=== PATIENT | female | born 1955 ===

== ENCOUNTER 2018-02-02 15:58 | Inpatient (IN) | payer MEDICAID ==
[~2018-02-02] VITALS: Ht 144.8 cm; Wt 83.2 kg
[~2018-02-02 15:58] MED LIST: BENZ1TAB61 PO; BUPR100T11 PO; CALC600T4 PO; CITA20TA6 PO; CLON0.5T20 PO; DIVA500T4 PO; DOCU100C33 PO; FENO145T30 PO; FLUP5ORA PO; IBUP-1222 PO; LEVO125C2 PO; METF-162 PO; RANI150T4 PO; SIMV20TA3 PO
[2018-02-02] MEDS ORDERED: DOCUSATE 100 MG CAPSULE PO PRN (16:00)
[2018-02-02] MEDS: PLEASE ENTER HEIGHT AND WEIGHT MC SCH (16:50)
[2018-02-02] MEDS ORDERED: HYDROcodone/APAP 5/325 TABLET PO PRN (17:00)
[2018-02-02 17:02] VITALS: BP 147/89
[2018-02-02] MEDS: DIVALPROEX 250 MG TABLET.DR PO SCH ×2 (18:06→20:18)
[2018-02-02 19:54] LABS: CULTURE INDICATED? NO; MICROSCOPIC AUTO
[2018-02-02] MEDS: RISPERIDONE 0.5 MG TABLET PO SCH ×2 (20:19→21:03)
[2018-02-02 20:41] VITALS: BP 128/99
[2018-02-02] MEDS: ACETAMINOPHEN 325 MG TABLET PO PRN (20:59)
[2018-02-03] MEDS ORDERED: ALBUTEROL SULFATE 2.5 MG/3 ML NPPB PRN
[2018-02-03] MEDS: PLEASE ENTER HEIGHT AND WEIGHT MC SCH ×2 (00:50→08:50)
[2018-02-03] MEDS ORDERED: LEVOTHYROXINE 112 MCG TABLET PO SCH (06:00)
[2018-02-03 06:27] LABS: BASOPHILS # (AUTO) 0.03 x10^3/uL (0-0.1); BASOPHILS % (AUTO) 1 % (0-1); EOSINOPHILS # (AUTO) 0.11 x10^3/uL (0-0.4); EOSINOPHILS % (AUTO) 2 % (1-7); LYMPHOCYTES # (AUTO) 2.08 x10^3/uL (1-3.4); LYMPHOCYTES % (AUTO) 35 % (22-44); MD NO; MEAN CORPUSCULAR HEMOGLOBIN 32.8 pg (27.0-34.8); MEAN CORPUSCULAR HGB CONC 34.7 g/dL (32.4-35.8); MEAN CORPUSCULAR VOLUME 94.7 fL (80-100); MEAN PLATELET VOLUME 7.9 fL (7.4-10.4); MONOCYTES # (AUTO) 0.37 x10^3/uL (0.2-0.8); MONOCYTES % (AUTO) 6 % (2-9); NEUTROPHILS # (AUTO) 3.34 x10^3/uL (1.8-6.8); NEUTROPHILS % (AUTO) 56 % (42-75); PLATELET COUNT 157 x10^3/uL (130-400); RED BLOOD COUNT 4.55 x10^6/uL (3.82-5.3)
[2018-02-03 06:39] LABS: ALANINE AMINOTRANSFERASE 20 U/L (12-78); ALBUMIN 3.3 g/dL (3.4-5.0); ANION GAP 10 mmol/L (5-15); CALCIUM 8.7 mg/dL (8.5-10.1); CHLORIDE 96 mmol/L (98-107); CREATININE 0.99 mg/dL (0.55-1.02)
[2018-02-03 07:03] LABS: ALKALINE PHOSPHATASE 76 U/L (45-117); BILIRUBIN,TOTAL 0.3 mg/dL (0.2-1.0); CHOL/HDL RATIO 5.5; CHOLESTEROL, TOTAL 230 mg/dL (140-239); FOLATE LEVEL 12.1 ng/mL (3.1-17.5); FREE T4 (FREE THYROXINE) 1.24 ng/dL (0.76-1.46); HDL CHOL % 18 % (28-40); HDL CHOLESTEROL (DIRECT) 42 mg/dL (40-60); LDL CHOLESTEROL,CALCULATED 108 mg/dL (54-169); LDL/HDL RATIO 2.6 (0.5-3.0); TOTAL PROTEIN 7.8 g/dL (6.4-8.2); TRIGLYCERIDES 399 mg/dL (50-200); VLDL CHOLESTEROL 80 mg/dL (0-25)
[2018-02-03 07:34] VITALS: BP 172/98
[2018-02-03] MEDS: DIVALPROEX 250 MG TABLET.DR PO SCH ×3 (08:31→20:27)
[2018-02-03] MEDS: RISPERIDONE 0.5 MG TABLET PO SCH ×2 (08:31→08:32)
[2018-02-03] MEDS: ACETAMINOPHEN 325 MG TABLET PO PRN ×2 (09:08→20:16)
[2018-02-03 17:51] VITALS: BP 184/97
[2018-02-03] MEDS: METOPROLOL TARTRATE 50 MG TABLET PO SCH (18:15)
[2018-02-03] MEDS ORDERED: HYDROcodone/APAP 5/325 TABLET PO PRN (18:30)
[2018-02-03] MEDS ORDERED: LABETALOL 5MG/ML, 20ML IVPush PRN (18:30)
[2018-02-03] MEDS ORDERED: ONDANSETRON ODT 4 MG PO PRN (18:30)
[2018-02-03] MEDS ORDERED: ENALAPRILAT 1.25 MG/ML, 2ML IV PRN (18:30)
[2018-02-03] MEDS ORDERED: ALBUTEROL/IPRATROPIUM 2.5MG/0.5MG, 3 ML NPPB SCH (19:00)
[2018-02-03 19:38] VITALS: BP 107/70
[2018-02-03 19:41] VITALS: BP 189/97
[2018-02-03] MEDS: RISPERIDONE 2 MG TABLET PO SCH (20:27)
[2018-02-03] MEDS: INSULIN REGULAR 100 UNITS/ML, 3ML VIAL SQ-INSULIN SCH (21:00)
[2018-02-03] MEDS: DIPHENHYDRAMINE 50 MG CAPSULE PO PRN (21:58)
[2018-02-03] MEDS ORDERED: DIPHENHYDRAMINE 50 MG CAPSULE ONE (21:58)
[2018-02-04] MEDS: METOPROLOL TARTRATE 50 MG TABLET PO SCH ×2 (05:26→18:44)
[2018-02-04] MEDS: LEVOTHYROXINE 112 MCG TABLET PO SCH (05:26)
[2018-02-04] MEDS: INSULIN REGULAR 100 UNITS/ML, 3ML VIAL SQ-INSULIN SCH ×4 (05:35→20:43)
[2018-02-04 07:40] VITALS: BP 183/91
[2018-02-04] MEDS: DIVALPROEX 250 MG TABLET.DR PO SCH ×3 (08:29→20:38)
[2018-02-04] MEDS: RISPERIDONE 2 MG TABLET PO SCH ×2 (08:29→20:38)
[2018-02-04] MEDS: SODIUM CHLORIDE 1 GM TABLET PO SCH (08:30)
[2018-02-04] MEDS: ACETAMINOPHEN 325 MG TABLET PO PRN (14:54)
[2018-02-04 18:41] VITALS: BP 170/91
[2018-02-04] MEDS: TRAZODONE 50MG TABLET PO PRN (21:27)
[2018-02-04] MEDS: DIPHENHYDRAMINE 50 MG CAPSULE PO PRN (21:45)
[2018-02-04] MEDS: LORazepam 1MG TABLET PO PRN (23:20)
[2018-02-05] MEDS: LEVOTHYROXINE 112 MCG TABLET PO SCH (05:30)
[2018-02-05] MEDS: METOPROLOL TARTRATE 50 MG TABLET PO SCH ×2 (05:30→17:34)
[2018-02-05] MEDS: INSULIN REGULAR 100 UNITS/ML, 3ML VIAL SQ-INSULIN SCH ×4 (05:31→21:00)
[2018-02-05 05:32] VITALS: BP 133/87
[2018-02-05 07:29] VITALS: BP 129/74
[2018-02-05] MEDS: DIVALPROEX 250 MG TABLET.DR PO SCH ×3 (08:33→21:13)
[2018-02-05] MEDS: SODIUM CHLORIDE 1 GM TABLET PO SCH (08:33)
[2018-02-05] MEDS: RISPERIDONE 2 MG TABLET PO SCH ×2 (08:33→21:14)
[2018-02-05] MEDS: METHYL SALICYLATE/MENTHOL CRM 85GM TP SCH ×2 (16:00→22:06)
[2018-02-05] MEDS: TRAZODONE 50MG TABLET PO SCH (21:13)
[2018-02-06] MEDS: LEVOTHYROXINE 112 MCG TABLET PO SCH (05:19)
[2018-02-06] MEDS: METOPROLOL TARTRATE 50 MG TABLET PO SCH ×2 (05:19→17:02)
[2018-02-06 05:30] VITALS: BP 172/78
[2018-02-06] MEDS: INSULIN REGULAR 100 UNITS/ML, 3ML VIAL SQ-INSULIN SCH ×4 (05:32→21:00)
[2018-02-06 07:38] VITALS: BP 139/81
[2018-02-06] MEDS: DIVALPROEX 250 MG TABLET.DR PO SCH ×3 (08:01→20:35)
[2018-02-06] MEDS: RISPERIDONE 2 MG TABLET PO SCH ×2 (08:01→20:35)
[2018-02-06] MEDS: SODIUM CHLORIDE 1 GM TABLET PO SCH (08:01)
[2018-02-06] MEDS: METHYL SALICYLATE/MENTHOL CRM 85GM TP SCH ×3 (08:01→21:50)
[2018-02-06 20:01] VITALS: BP 177/103
[2018-02-06] MEDS: TRAZODONE 50MG TABLET PO SCH (20:35)
[2018-02-06] MEDS: LORazepam 1MG TABLET PO PRN (20:35)
[2018-02-07] MEDS: LEVOTHYROXINE 112 MCG TABLET PO SCH (06:35)
[2018-02-07] MEDS: METOPROLOL TARTRATE 50 MG TABLET PO SCH ×2 (06:36→16:44)
[2018-02-07 06:47] VITALS: BP 187/81
[2018-02-07 07:19] VITALS: BP 156/94
[2018-02-07] MEDS: INSULIN REGULAR 100 UNITS/ML, 3ML VIAL SQ-INSULIN SCH ×4 (07:34→20:33)
[2018-02-07] MEDS: METHYL SALICYLATE/MENTHOL CRM 85GM TP SCH ×3 (07:35→20:40)
[2018-02-07] MEDS: SODIUM CHLORIDE 1 GM TABLET PO SCH (08:30)
[2018-02-07] MEDS: RISPERIDONE 2 MG TABLET PO SCH ×2 (08:31→20:41)
[2018-02-07] MEDS: LISINOPRIL 10 MG TABLET PO SCH (08:31)
[2018-02-07] MEDS: DIVALPROEX 250 MG TABLET.DR PO SCH ×3 (08:31→20:39)
[2018-02-07 08:40] LABS: ANION GAP 7 mmol/L (5-15); CALCIUM 8.8 mg/dL (8.5-10.1); CHLORIDE 98 mmol/L (98-107); CREATININE 0.99 mg/dL (0.55-1.02)
[2018-02-07 19:40] VITALS: BP 137/78
[2018-02-07] MEDS: TRAZODONE 50MG TABLET PO PRN (20:39)
[2018-02-07] MEDS: TRAZODONE 50MG TABLET PO SCH (20:40)
[2018-02-07] MEDS: DIPHENHYDRAMINE 50 MG CAPSULE PO PRN (21:00)
[2018-02-08] MEDS: DIPHENHYDRAMINE 50 MG CAPSULE PO PRN ×2 (04:17→20:38)
[2018-02-08] MEDS: ACETAMINOPHEN 325 MG TABLET PO PRN (04:18)
[2018-02-08] MEDS: LEVOTHYROXINE 112 MCG TABLET PO SCH (05:21)
[2018-02-08] MEDS: METOPROLOL TARTRATE 50 MG TABLET PO SCH ×2 (06:00→18:16)
[2018-02-08] MEDS: INSULIN REGULAR 100 UNITS/ML, 3ML VIAL SQ-INSULIN SCH ×4 (06:00→20:32)
[2018-02-08 07:00] VITALS: BP 176/84
[2018-02-08] MEDS: LISINOPRIL 10 MG TABLET PO SCH (07:50)
[2018-02-08] MEDS: DIVALPROEX 250 MG TABLET.DR PO SCH ×3 (07:50→20:38)
[2018-02-08] MEDS: SODIUM CHLORIDE 1 GM TABLET PO SCH (07:51)
[2018-02-08] MEDS: RISPERIDONE 2 MG TABLET PO SCH ×2 (07:51→20:38)
[2018-02-08] MEDS: METHYL SALICYLATE/MENTHOL CRM 85GM TP SCH ×3 (10:00→20:38)
[2018-02-08 19:51] VITALS: BP 140/83
[2018-02-08] MEDS: TRAZODONE 50MG TABLET PO SCH (20:39)
[2018-02-09] MEDS: LORazepam 1MG TABLET PO PRN (01:11)
[2018-02-09] MEDS: LEVOTHYROXINE 112 MCG TABLET PO SCH (04:42)
[2018-02-09] MEDS: METOPROLOL TARTRATE 50 MG TABLET PO SCH ×2 (04:43→18:08)
[2018-02-09] MEDS: INSULIN REGULAR 100 UNITS/ML, 3ML VIAL SQ-INSULIN SCH ×4 (07:00→21:00)
[2018-02-09 07:24] VITALS: BP 140/77
[2018-02-09] MEDS: DIVALPROEX 250 MG TABLET.DR PO SCH ×3 (09:05→20:19)
[2018-02-09] MEDS: SODIUM CHLORIDE 1 GM TABLET PO SCH (09:06)
[2018-02-09] MEDS: RISPERIDONE 2 MG TABLET PO SCH ×2 (09:06→20:19)
[2018-02-09] MEDS: LISINOPRIL 10 MG TABLET PO SCH (09:06)
[2018-02-09] MEDS: METHYL SALICYLATE/MENTHOL CRM 85GM TP SCH ×3 (09:06→20:22)
[2018-02-09 20:00] VITALS: BP 147/86
[2018-02-09] MEDS: TRAZODONE 50MG TABLET PO SCH (20:20)
[2018-02-10 06:05] VITALS: BP 165/82
[2018-02-10] MEDS: METOPROLOL TARTRATE 50 MG TABLET PO SCH ×2 (06:06→17:59)
[2018-02-10] MEDS: LEVOTHYROXINE 112 MCG TABLET PO SCH (06:07)
[2018-02-10] MEDS: INSULIN REGULAR 100 UNITS/ML, 3ML VIAL SQ-INSULIN SCH ×3 (07:00→16:00)
[2018-02-10 07:42] VITALS: BP 149/76
[2018-02-10] MEDS: LISINOPRIL 10 MG TABLET PO SCH (08:45)
[2018-02-10] MEDS: DIVALPROEX 250 MG TABLET.DR PO SCH ×3 (08:45→20:24)
[2018-02-10] MEDS: SODIUM CHLORIDE 1 GM TABLET PO SCH (08:45)
[2018-02-10] MEDS: RISPERIDONE 2 MG TABLET PO SCH ×2 (08:45→20:24)
[2018-02-10] MEDS: METHYL SALICYLATE/MENTHOL CRM 85GM TP SCH ×3 (09:26→20:26)
[2018-02-10 19:53] VITALS: BP 142/83
[2018-02-10] MEDS: TRAZODONE 50MG TABLET PO SCH (20:24)
[2018-02-11 04:49] VITALS: BP 139/85
[2018-02-11] MEDS: METOPROLOL TARTRATE 50 MG TABLET PO SCH ×2 (05:11→18:01)
[2018-02-11] MEDS: LEVOTHYROXINE 112 MCG TABLET PO SCH (05:12)
[2018-02-11] MEDS: INSULIN REGULAR 100 UNITS/ML, 3ML VIAL SQ-INSULIN SCH (08:00)
[2018-02-11] MEDS: LISINOPRIL 10 MG TABLET PO SCH (08:01)
[2018-02-11] MEDS: DIVALPROEX 250 MG TABLET.DR PO SCH ×3 (08:01→22:33)
[2018-02-11] MEDS: RISPERIDONE 2 MG TABLET PO SCH ×2 (08:02→22:33)
[2018-02-11] MEDS: SODIUM CHLORIDE 1 GM TABLET PO SCH (08:02)
[2018-02-11 08:04] VITALS: BP 139/86
[2018-02-11] MEDS: METHYL SALICYLATE/MENTHOL CRM 85GM TP SCH ×3 (08:09→22:43)
[2018-02-11] MEDS: ACETAMINOPHEN 325 MG TABLET PO PRN (10:38)
[2018-02-11 22:30] VITALS: BP 154/74
[2018-02-11] MEDS: LORazepam 1MG TABLET PO PRN (22:33)
[2018-02-11] MEDS: TRAZODONE 50MG TABLET PO SCH (22:33)
[2018-02-12 05:33] VITALS: BP 165/87
[2018-02-12] MEDS: LEVOTHYROXINE 112 MCG TABLET PO SCH (05:34)
[2018-02-12] MEDS: METOPROLOL TARTRATE 50 MG TABLET PO SCH (05:34)
[2018-02-12 07:27] VITALS: BP 157/79
[2018-02-12] MEDS: INSULIN REGULAR 100 UNITS/ML, 3ML VIAL SQ-INSULIN SCH (07:57)
[2018-02-12] MEDS: DIVALPROEX 250 MG TABLET.DR PO SCH ×2 (08:56→15:54)
[2018-02-12] MEDS: RISPERIDONE 2 MG TABLET PO SCH (08:57)
[2018-02-12] MEDS: SODIUM CHLORIDE 1 GM TABLET PO SCH (08:57)
[2018-02-12] MEDS: METHYL SALICYLATE/MENTHOL CRM 85GM TP SCH ×2 (08:57→15:54)
[2018-02-12] MEDS: LISINOPRIL 10 MG TABLET PO SCH (08:57)
[2018-02-12] MEDS ORDERED: LEVO112T2 PO (12:48)
[2018-02-12] MEDS ORDERED: DIVA-59 PO (12:48)
[2018-02-12] MEDS ORDERED: RISP2TAB35 PO (12:48)
[2018-02-12] MEDS ORDERED: LISI-167 PO (12:48)
[2018-02-12] MEDS ORDERED: TRAZ-136 PO (12:48)
[2018-02-12] MEDS ORDERED: INSU100V5 SQ-INSULIN (12:48)
[2018-02-12] MEDS ORDERED: METO50TA82 PO (12:48)
[2018-02-12] MEDS: LORazepam 1MG TABLET PO PRN (15:54)
== END 2018-02-12 16:03 | DRG 884 ==
LOC: 3E 15:59
PROVIDERS: ADMIT Counselor Mental Health; ATTEND Counselor Mental Health
DX: F01.51 Vascular dementia, unspecified severity, with behavioral disturbance (principal); F20.0 Paranoid schizophrenia; E87.1 Hypo-osmolality and hyponatremia; E03.9 Hypothyroidism, unspecified; E11.9 Type 2 diabetes mellitus without complications; E78.1 Pure hyperglyceridemia; E78.5 Hyperlipidemia, unspecified; F17.200 Nicotine dependence, unspecified, uncomplicated; G47.00 Insomnia, unspecified; I10 Essential (primary) hypertension; J44.9 Chronic obstructive pulmonary disease, unspecified; R45.850 Homicidal ideations; Z79.899 Other long term (current) drug therapy; F39 Unspecified mood [affective] disorder; F41.9 Anxiety disorder, unspecified; Z72.89 Other problems related to lifestyle
CPT/HCPCS: 36415; 80048; 80053; 80061; 80164; 81001; 82140; 82607; 82746; 82962; 84439; 84443; 85025; 86592; J1815; 92523-GN

== ENCOUNTER 2018-05-17 15:19 | Inpatient (IN) | payer MEDICAID, MEDICARE ==
[~2018-05-17] VITALS: Ht 144.8 cm; Wt 83.4 kg
[~2018-05-17 15:19] MED LIST changes: +DIVA-59 PO; +INSU100V5 SQ-INSULIN; +LEVO112T2 PO; +LISI-167 PO; +METO50TA82 PO; +RISP2TAB35 PO; +TRAZ-136 PO
[2018-05-17 16:33] LABS: ALBUMIN 3.2 g/dL (3.4-5.0); ANION GAP 6 mmol/L (5-15); CALCIUM 8.2 mg/dL (8.5-10.1); CHLORIDE 89 mmol/L (98-107); CREATININE 0.99 mg/dL (0.55-1.02)
[2018-05-17 16:34] LABS: BASOPHILS % (AUTO) 0 % (0-1); EOSINOPHILS # (AUTO) 0.13 x10^3/uL (0-0.4); EOSINOPHILS % (AUTO) 2 % (1-7); LYMPHOCYTES # (AUTO) 2.46 x10^3/uL (1-3.4); LYMPHOCYTES % (AUTO) 40 % (22-44); MD NO; MEAN CORPUSCULAR HEMOGLOBIN 31.6 pg (27.0-34.8); MEAN CORPUSCULAR HGB CONC 33.9 g/dL (32.4-35.8); MEAN CORPUSCULAR VOLUME 93.2 fL (80-100); MEAN PLATELET VOLUME 8.1 fL (7.4-10.4); MONOCYTES # (AUTO) 0.63 x10^3/uL (0.2-0.8); MONOCYTES % (AUTO) 10 % (2-9); NEUTROPHILS # (AUTO) 2.91 x10^3/uL (1.8-6.8); NEUTROPHILS % (AUTO) 48 % (42-75); PLATELET COUNT 140 x10^3/uL (130-400); RED BLOOD COUNT 4.39 x10^6/uL (3.82-5.3)
[2018-05-17] MEDS ORDERED: DIVA125C2 PO (18:01)
[2018-05-17 18:03] LABS: MICROSCOPIC NOT IND
[2018-05-17] MEDS ORDERED: RISP2TAB35 PO (18:03)
[2018-05-17] MEDS ORDERED: SODI1TAB PO (18:04)
[2018-05-17] MEDS ORDERED: TRAZ-136 PO (18:05)
[2018-05-17] MEDS ORDERED: MENT113G5 TD (18:06)
[2018-05-17 18:09] LABS: CULTURE INDICATED? NO
[2018-05-17] MEDS ORDERED: NYST15CR33 TD (18:16)
[2018-05-17 19:00] VITALS: BP 152/84
[2018-05-17] MEDS ORDERED: DOCUSATE 100 MG CAPSULE PO PRN (19:00)
[2018-05-17 19:51] LABS: OSMOLALITY,URINE 240 mOsm/kg (500-850)
[2018-05-17 20:15] LABS: ANION GAP 7 mmol/L (5-15); CALCIUM 8.3 mg/dL (8.5-10.1); CHLORIDE 90 mmol/L (98-107); CREATININE 0.95 mg/dL (0.55-1.02)
[2018-05-17 21:03] LABS: FREE T4 (FREE THYROXINE) 1.34 ng/dL (0.76-1.46)
[2018-05-18 00:18] VITALS: BP 143/83
[2018-05-18 00:52] LABS: ANION GAP 7 mmol/L (5-15); CALCIUM 8.6 mg/dL (8.5-10.1); CHLORIDE 91 mmol/L (98-107); CREATININE 1.19 mg/dL (0.55-1.02)
[2018-05-18 04:03] VITALS: BP 146/76
[2018-05-18 04:30] LABS: ANION GAP 4 mmol/L (5-15); CALCIUM 8.7 mg/dL (8.5-10.1); CHLORIDE 92 mmol/L (98-107)
[2018-05-18] MEDS: ACETAMINOPHEN 325 MG TABLET PO PRN (06:11)
[2018-05-18 06:38] VITALS: BP 136/67
[2018-05-18] MEDS: SODIUM CHLORIDE 0.9% 1,000 ML IV SCH ×2 (08:30→18:30)
[2018-05-18 08:32] LABS: ANION GAP 6 mmol/L (5-15); CALCIUM 8.7 mg/dL (8.5-10.1); CHLORIDE 93 mmol/L (98-107); CREATININE 1.05 mg/dL (0.55-1.02)
[2018-05-18 12:06] LABS: ANION GAP 4 mmol/L (5-15); CALCIUM 8.5 mg/dL (8.5-10.1); CHLORIDE 93 mmol/L (98-107); CREATININE 1.03 mg/dL (0.55-1.02)
[2018-05-18 13:14] VITALS: BP 156/73
[2018-05-18 16:16] LABS: ANION GAP 5 mmol/L (5-15); CALCIUM 8.8 mg/dL (8.5-10.1); CHLORIDE 91 mmol/L (98-107); CREATININE 1.38 mg/dL (0.55-1.02)
[2018-05-18 20:50] LABS: ANION GAP 8 mmol/L (5-15); CALCIUM 8.5 mg/dL (8.5-10.1); CHLORIDE 90 mmol/L (98-107); CREATININE 1.27 mg/dL (0.55-1.02)
[2018-05-18 21:45] VITALS: BP 121/66
[2018-05-19 00:45] LABS: ANION GAP 6 mmol/L (5-15); CALCIUM 8.1 mg/dL (8.5-10.1); CHLORIDE 95 mmol/L (98-107); CREATININE 1.24 mg/dL (0.55-1.02)
[2018-05-19 01:56] VITALS: BP 141/74
[2018-05-19] MEDS: ACETAMINOPHEN 325 MG TABLET PO PRN (03:31)
[2018-05-19 05:55] LABS: ANION GAP 5 mmol/L (5-15); CALCIUM 9.2 mg/dL (8.5-10.1); CHLORIDE 98 mmol/L (98-107); CREATININE 0.93 mg/dL (0.55-1.02)
[2018-05-19] MEDS: SODIUM CHLORIDE 0.9% 1,000 ML IV SCH ×2 (06:00→15:34)
[2018-05-19 06:50] VITALS: BP 162/86
[2018-05-19 08:43] LABS: ANION GAP 6 mmol/L (5-15); CALCIUM 8.5 mg/dL (8.5-10.1); CHLORIDE 99 mmol/L (98-107); CREATININE 0.89 mg/dL (0.55-1.02)
[2018-05-19 13:48] VITALS: BP 154/89
[2018-05-19 20:00] VITALS: BP 150/85
[2018-05-19] MEDS ORDERED: DILTIAZEM 5 MG/ML, 5ML IVPush ONE (21:00)
[2018-05-19] MEDS ORDERED: DILTIAZEM 5 MG/ML, 10ML IVPush ONE (21:30)
[2018-05-19 21:49] LABS: FREE T4 (FREE THYROXINE) 1.02 ng/dL (0.76-1.46); THYROID STIMULATING HORMONE 0.151 mIU/L (0.358-3.740)
[2018-05-20] MEDS: ACETAMINOPHEN 325 MG TABLET PO PRN (00:30)
[2018-05-20] MEDS: SODIUM CHLORIDE 0.9% 1,000 ML IV SCH ×3 (00:33→19:50)
[2018-05-20 01:25] VITALS: BP 173/111
[2018-05-20 02:04] VITALS: BP 160/86
[2018-05-20 06:38] VITALS: BP 146/105
[2018-05-20] MEDS ORDERED: METOPROLOL SUCCINATE 50 MG TAB.ER.24H ONE (10:43)
[2018-05-20] MEDS: DIVALPROEX 500 MG TABLET.DR PO SCH ×2 (10:48→21:48)
[2018-05-20] MEDS: LISINOPRIL 10 MG TABLET PO SCH (10:48)
[2018-05-20] MEDS: RISPERIDONE 2 MG TABLET PO SCH ×3 (10:48→21:49)
[2018-05-20] MEDS ORDERED: METOPROLOL TARTRATE 50 MG TABLET PO ONE (11:00)
[2018-05-20 12:05] VITALS: BP 177/114
[2018-05-20 17:05] VITALS: BP 162/92
[2018-05-20] MEDS: METOPROLOL TARTRATE 25 MG TABLET PO SCH (18:00)
[2018-05-20] MEDS ORDERED: METOPROLOL TARTRATE 50 MG TABLET PO SCH ×2 (18:00)
[2018-05-20 19:55] VITALS: BP 168/94
[2018-05-20] MEDS: TRAZODONE 50MG TABLET PO SCH (21:49)
[2018-05-21 02:26] VITALS: BP 105/67
[2018-05-21] MEDS: LEVOTHYROXINE 112 MCG TABLET PO SCH (05:25)
[2018-05-21] MEDS: SODIUM CHLORIDE 0.9% 1,000 ML IV SCH ×2 (05:25→16:49)
[2018-05-21] MEDS: METOPROLOL TARTRATE 25 MG TABLET PO SCH ×2 (05:25→18:10)
[2018-05-21 07:39] VITALS: BP 120/76
[2018-05-21] MEDS: LISINOPRIL 10 MG TABLET PO SCH (08:10)
[2018-05-21] MEDS: RISPERIDONE 2 MG TABLET PO SCH ×3 (08:10→21:00)
[2018-05-21] MEDS: DIVALPROEX 500 MG TABLET.DR PO SCH ×2 (08:10→21:00)
[2018-05-21 12:51] VITALS: BP 136/80
[2018-05-21 19:44] VITALS: BP 171/85
[2018-05-21] MEDS: TRAZODONE 50MG TABLET PO SCH (21:00)
[2018-05-21 21:03] VITALS: BP 127/73
[2018-05-22 02:17] VITALS: BP 149/81
[2018-05-22] MEDS: SODIUM CHLORIDE 0.9% 1,000 ML IV SCH (03:39)
[2018-05-22] MEDS: LEVOTHYROXINE 112 MCG TABLET PO SCH (05:39)
[2018-05-22] MEDS: ACETAMINOPHEN 325 MG TABLET PO PRN (05:41)
[2018-05-22] MEDS: METOPROLOL TARTRATE 25 MG TABLET PO SCH (05:44)
[2018-05-22 07:24] VITALS: BP 119/76
[2018-05-22 09:42] VITALS: BP 150/84
[2018-05-22] MEDS: RISPERIDONE 2 MG TABLET PO SCH (09:43)
[2018-05-22] MEDS: DIVALPROEX 500 MG TABLET.DR PO SCH (09:43)
[2018-05-22] MEDS: LISINOPRIL 10 MG TABLET PO SCH (09:43)
[2018-05-22] MEDS ORDERED: SODI1TAB PO ×2 (12:07→12:18)
[2018-05-22] MEDS ORDERED: METO25TA35 PO (12:07)
[2018-05-22] MEDS ORDERED: SIMV10TA PO (12:09)
[2018-05-22] MEDS ORDERED: LORazepam 1MG TABLET PO ONE (14:00)
[2018-05-22 14:10] VITALS: BP 147/84
== END 2018-05-22 16:00 | DRG 640 ==
LOC: ED 17:23 → EDIP 17:52 → 4WST 18:32
PROVIDERS: ADMIT Internal Medicine; ATTEND Internal Medicine
DX: E87.1 Hypo-osmolality and hyponatremia (principal); G93.41 Metabolic encephalopathy; F20.0 Paranoid schizophrenia; E03.9 Hypothyroidism, unspecified; E11.9 Type 2 diabetes mellitus without complications; E66.01 Morbid (severe) obesity due to excess calories; E78.5 Hyperlipidemia, unspecified; F01.50 Vascular dementia, unspecified severity, without behavioral disturbance, psychotic disturbance, mood disturbance, and anxiety; F41.1 Generalized anxiety disorder; I11.9 Hypertensive heart disease without heart failure; J44.9 Chronic obstructive pulmonary disease, unspecified; S00.03XA Contusion of scalp, initial encounter; S05.12XA Contusion of eyeball and orbital tissues, left eye, initial encounter; W18.39XA Other fall on same level, initial encounter; M19.90 Unspecified osteoarthritis, unspecified site; F41.9 Anxiety disorder, unspecified; K59.00 Constipation, unspecified; F32.9 Major depressive disorder, single episode, unspecified; Y93.89 Activity, other specified; Y92.89 Other specified places as the place of occurrence of the external cause; Z68.39 Body mass index [BMI] 39.0-39.9, adult; Z87.891 Personal history of nicotine dependence; Y99.8 Other external cause status
CPT/HCPCS: 36415; 70450; 70486; 71045; 71046; 72125; 80048; 80164; 81003; 82040; 82533; 82962; 83735; 83880; 83930; 83935; 84300; 84439; 84443; 84481; 85025; 93005; 93306; 99285; G0378; J7030

== ENCOUNTER 2018-05-29 00:07 | Emergency (ER) | payer MEDICAID ==
[~2018-05-29] VITALS: Ht 144.8 cm; Wt 75.6 kg
[~2018-05-29 00:07] MED LIST changes: +DIVA125C2 PO; +MENT113G5 TD; +METO25TA35 PO; +NYST15CR33 TD; +SIMV10TA PO; +SODI1TAB PO
[2018-05-29 00:45] LABS: BASOPHILS # (AUTO) 0.09 x10^3/uL (0-0.1); BASOPHILS % (AUTO) 1 % (0-1); EOSINOPHILS # (AUTO) 0.08 x10^3/uL (0-0.4); EOSINOPHILS % (AUTO) 1 % (1-7); LYMPHOCYTES # (AUTO) 2.48 x10^3/uL (1-3.4); LYMPHOCYTES % (AUTO) 24 % (22-44); MD NO; MEAN CORPUSCULAR HEMOGLOBIN 32.3 pg (27.0-34.8); MEAN CORPUSCULAR HGB CONC 34.4 g/dL (32.4-35.8); MEAN CORPUSCULAR VOLUME 93.9 fL (80-100); MEAN PLATELET VOLUME 7.6 fL (7.4-10.4); MONOCYTES # (AUTO) 0.63 x10^3/uL (0.2-0.8); MONOCYTES % (AUTO) 6 % (2-9); NEUTROPHILS # (AUTO) 7.16 x10^3/uL (1.8-6.8); NEUTROPHILS % (AUTO) 69 % (42-75); PLATELET COUNT 199 x10^3/uL (130-400); RED BLOOD COUNT 4.12 x10^6/uL (3.82-5.3); RED CELL DISTRIBUTION WIDTH 13.3 % (9.6-15.2)
[2018-05-29 00:54] LABS: ALBUMIN 3.2 g/dL (3.4-5.0); ANION GAP 8 mmol/L (5-15); CALCIUM 8.8 mg/dL (8.5-10.1); CHLORIDE 96 mmol/L (98-107); CREATININE 1.08 mg/dL (0.55-1.02)
[2018-05-29 02:45] VITALS: BP 108/72
== END 2018-05-29 03:24 | disposition short-term general hospital (02) ==
LOC: ED 00:27
DX: F91.1 Conduct disorder, childhood-onset type (principal); I10 Essential (primary) hypertension; E11.9 Type 2 diabetes mellitus without complications; E78.5 Hyperlipidemia, unspecified; J44.9 Chronic obstructive pulmonary disease, unspecified; F41.1 Generalized anxiety disorder; F32.9 Major depressive disorder, single episode, unspecified; F20.0 Paranoid schizophrenia; Z87.891 Personal history of nicotine dependence
CPT/HCPCS: 36415; 80048; 82040; 85025; 99285

== ENCOUNTER 2018-06-01 08:53 | Inpatient (IN) | payer MEDICAID ==
[~2018-06-01] VITALS: Ht 144.8 cm; Wt 78.3 kg
[~2018-06-01 08:53] MED LIST changes: -TRAZ-136 PO; +TRAZ50TA66 PO
[2018-06-01] MEDS ORDERED: ALPR0.25 PO (10:36)
[2018-06-01] MEDS ORDERED: ZIPR20CA2 PO (10:36)
[2018-06-01] MEDS ORDERED: POLYETHYLENE GLYCOL 17 GM PACKET PO PRN (12:30)
[2018-06-01] MEDS ORDERED: DOCUSATE 100 MG CAPSULE PO PRN (12:30)
[2018-06-01] MEDS ORDERED: BISACODYL 10 MG SUPP PR PRN (12:30)
[2018-06-01] MEDS ORDERED: ONDANSETRON ODT 4 MG PO PRN (12:30)
[2018-06-01 12:57] VITALS: BP 147/84
[2018-06-01] MEDS: ACETAMINOPHEN 325 MG TABLET PO PRN ×2 (16:03→22:02)
[2018-06-01] MEDS: METOPROLOL TARTRATE 25 MG TABLET PO SCH (17:18)
[2018-06-01] MEDS: SIMVASTATIN 10 MG PO SCH ×2 (20:15→21:54)
[2018-06-01] MEDS: DIVALPROEX 125 MG CAP.SPRINK PO SCH ×2 (20:15→21:54)
[2018-06-01] MEDS: ZIPRASIDONE 20MG CAPSULE PO SCH ×2 (20:15→21:54)
[2018-06-01] MEDS: TRAZODONE 50MG TABLET PO SCH ×2 (20:15→21:54)
[2018-06-01 20:27] VITALS: BP 97/62
[2018-06-01] MEDS: METHYL SALICYLATE/MENTHOL CRM 85GM TP SCH (20:52)
[2018-06-01] MEDS: SODIUM CHLORIDE 1 GM TABLET PO SCH (20:52)
[2018-06-01] MEDS: NYSTATIN CRM 15GM TP SCH (20:53)
[2018-06-02 05:21] LABS: MEAN CORPUSCULAR HEMOGLOBIN 32.7 pg (27.0-34.8); MEAN CORPUSCULAR HGB CONC 34.5 g/dL (32.4-35.8); MEAN CORPUSCULAR VOLUME 94.7 fL (80-100); MEAN PLATELET VOLUME 7.8 fL (7.4-10.4); PLATELET COUNT 217 x10^3/uL (130-400); RED BLOOD COUNT 4.33 x10^6/uL (3.82-5.3); RED CELL DISTRIBUTION WIDTH 13.1 % (9.6-15.2)
[2018-06-02 05:26] LABS: ALBUMIN 3.2 g/dL (3.4-5.0); CALCIUM 8.3 mg/dL (8.5-10.1); CHLORIDE 86 mmol/L (98-107)
[2018-06-02 05:53] LABS: ALANINE AMINOTRANSFERASE 13 U/L (12-78); ALKALINE PHOSPHATASE 60 U/L (45-117); ANION GAP 7 mmol/L (5-15); BILIRUBIN,TOTAL 0.3 mg/dL (0.2-1.0); CHOL/HDL RATIO 2.5; CHOLESTEROL, TOTAL 149 mg/dL (140-239); CREATININE 1.13 mg/dL (0.55-1.02); HDL CHOL % 40 % (28-40); HDL CHOLESTEROL (DIRECT) 59 mg/dL (40-60); LDL CHOLESTEROL,CALCULATED 36 mg/dL (54-169); LDL/HDL RATIO 0.6 (0.5-3.0); T4 (THYROXINE) 9.5 mcg/dL (4.8-13.9); TOTAL PROTEIN 6.8 g/dL (6.4-8.2); TRIGLYCERIDES 272 mg/dL (50-200); VLDL CHOLESTEROL 54 mg/dL (0-25)
[2018-06-02 06:02] LABS: MD YES
[2018-06-02 06:06] LABS: BAND#(MANUAL) 0.22 x10^3/uL; BANDS%(MANUAL) 3 % (0-7); METAMYELOCYTES# (MANUAL) 0.14 x10^3/uL (0-0); METAMYELOCYTES% (MANUAL) 2 % (0-1); MONOS% (MANUAL) 7 % (2-9); SEGS% (MANUAL) 25 % (42-75)
[2018-06-02 06:16] LABS: <PLATELET ESTIMATE> ADEQUATE; <PLT MORPHOLOGY> NORMAL PLT MORPH; <RBC MORPHOLOGY> NORMAL; LYMPH#(MANUAL) 4.03 x10^3/uL (1-3.4); LYMPHS% (MANUAL) 56 % (22-44); REACTIVE LYMPHS % (MANUAL) 7 % (0-0)
[2018-06-02] MEDS: METOPROLOL TARTRATE 25 MG TABLET PO SCH ×2 (07:23→17:13)
[2018-06-02] MEDS: LEVOTHYROXINE 112 MCG TABLET PO SCH (07:23)
[2018-06-02] MEDS: ACETAMINOPHEN 325 MG TABLET PO PRN ×2 (07:23→22:07)
[2018-06-02 07:30] VITALS: BP 166/94
[2018-06-02 08:21] LABS: CULTURE INDICATED? NO; MICROSCOPIC NOT IND
[2018-06-02] MEDS: SODIUM CHLORIDE 1 GM TABLET PO SCH ×2 (09:05→20:17)
[2018-06-02] MEDS: SENNA/DOCUSATE TABLET PO SCH (09:05)
[2018-06-02] MEDS: DIVALPROEX 125 MG CAP.SPRINK PO SCH ×2 (09:05→20:16)
[2018-06-02] MEDS: ZIPRASIDONE 20MG CAPSULE PO SCH (09:05)
[2018-06-02] MEDS: LISINOPRIL 10 MG TABLET PO SCH (09:06)
[2018-06-02] MEDS: NYSTATIN CRM 15GM TP SCH ×2 (09:06→20:20)
[2018-06-02] MEDS: METHYL SALICYLATE/MENTHOL CRM 85GM TP SCH ×2 (09:07→20:20)
[2018-06-02] MEDS ORDERED: LORazepam 0.5MG TABLET PO SCH (16:00)
[2018-06-02 20:00] VITALS: BP 158/77
[2018-06-02] MEDS: TRAZODONE 50MG TABLET PO SCH (20:17)
[2018-06-02] MEDS: SIMVASTATIN 10 MG PO SCH (20:17)
[2018-06-02] MEDS: ZIPRASIDONE 40MG CAPSULE PO SCH (20:18)
[2018-06-03 06:01] VITALS: BP 161/95
[2018-06-03] MEDS: LEVOTHYROXINE 112 MCG TABLET PO SCH (06:21)
[2018-06-03] MEDS: METOPROLOL TARTRATE 25 MG TABLET PO SCH ×2 (06:21→18:30)
[2018-06-03] MEDS: SENNA/DOCUSATE TABLET PO SCH ×2 (08:06→08:47)
[2018-06-03 08:43] VITALS: BP 143/65
[2018-06-03] MEDS: DIVALPROEX 125 MG CAP.SPRINK PO SCH ×2 (08:44→20:40)
[2018-06-03] MEDS: ZIPRASIDONE 20MG CAPSULE PO SCH (08:45)
[2018-06-03] MEDS: LISINOPRIL 10 MG TABLET PO SCH (08:45)
[2018-06-03] MEDS: SODIUM CHLORIDE 1 GM TABLET PO SCH ×2 (08:45→20:39)
[2018-06-03] MEDS: VITAMIN E 400 UNITS CAPSULE PO SCH (08:45)
[2018-06-03] MEDS ORDERED: CYANOCOBALOMIN 100MCG TABLET PO SCH (09:00)
[2018-06-03] MEDS ORDERED: CHOLECALCIFEROL 5,000u TAB PO SCH (09:00)
[2018-06-03] MEDS: METHYL SALICYLATE/MENTHOL CRM 85GM TP SCH ×2 (09:01→20:40)
[2018-06-03] MEDS: NYSTATIN CRM 15GM TP SCH ×2 (09:01→20:40)
[2018-06-03 16:17] VITALS: BP 153/70
[2018-06-03 19:14] VITALS: BP 146/80
[2018-06-03] MEDS: ZIPRASIDONE 40MG CAPSULE PO SCH (20:39)
[2018-06-03] MEDS: SIMVASTATIN 10 MG PO SCH (20:39)
[2018-06-03] MEDS: TEMAZEPAM 15 MG CAPSULE PO SCH (20:39)
[2018-06-04] VITALS (7 sets, daily range): BP systolic 115–182; BP diastolic 67–92
[2018-06-04] MEDS: LEVOTHYROXINE 112 MCG TABLET PO SCH (06:14)
[2018-06-04] MEDS: METOPROLOL TARTRATE 25 MG TABLET PO SCH ×2 (06:15→17:05)
[2018-06-04] MEDS: SODIUM CHLORIDE 1 GM TABLET PO SCH ×2 (08:24→19:58)
[2018-06-04] MEDS: ZIPRASIDONE 20MG CAPSULE PO SCH (08:24)
[2018-06-04] MEDS: SENNA/DOCUSATE TABLET PO SCH (08:24)
[2018-06-04] MEDS: DIVALPROEX 125 MG CAP.SPRINK PO SCH ×2 (08:24→19:58)
[2018-06-04] MEDS: LISINOPRIL 10 MG TABLET PO SCH (08:25)
[2018-06-04] MEDS: VITAMIN E 400 UNITS CAPSULE PO SCH (08:26)
[2018-06-04] MEDS: NYSTATIN CRM 15GM TP SCH ×2 (08:26→19:57)
[2018-06-04] MEDS: METHYL SALICYLATE/MENTHOL CRM 85GM TP SCH ×2 (08:26→19:57)
[2018-06-04] MEDS: ACETAMINOPHEN 325 MG TABLET PO PRN ×2 (08:28→19:58)
[2018-06-04] MEDS ORDERED: DIAZEPAM 5 MG TABLET ONE (13:04)
[2018-06-04] MEDS ORDERED: DIAZEPAM 5 MG TABLET PO ONE (13:30)
[2018-06-04] MEDS ORDERED: LORATADINE 10 MG TABLET ONE (18:32)
[2018-06-04] MEDS: LORATADINE 10 MG TABLET PO SCH (18:36)
[2018-06-04] MEDS: ZIPRASIDONE 40MG CAPSULE PO SCH (19:58)
[2018-06-04] MEDS: SIMVASTATIN 10 MG PO SCH (19:58)
[2018-06-04] MEDS: TEMAZEPAM 15 MG CAPSULE PO SCH (19:58)
[2018-06-05 06:23] VITALS: BP 122/82
[2018-06-05] MEDS: METOPROLOL TARTRATE 25 MG TABLET PO SCH ×2 (06:27→17:34)
[2018-06-05] MEDS: LEVOTHYROXINE 112 MCG TABLET PO SCH (06:27)
[2018-06-05 07:25] VITALS: BP 144/78
[2018-06-05] MEDS: LORATADINE 10 MG TABLET PO SCH (08:13)
[2018-06-05] MEDS: VITAMIN E 400 UNITS CAPSULE PO SCH (08:14)
[2018-06-05] MEDS: ZIPRASIDONE 40MG CAPSULE PO SCH ×2 (08:14→20:35)
[2018-06-05] MEDS: DIVALPROEX 125 MG CAP.SPRINK PO SCH ×2 (08:14→20:35)
[2018-06-05] MEDS: SODIUM CHLORIDE 1 GM TABLET PO SCH ×2 (08:14→20:35)
[2018-06-05] MEDS: METHYL SALICYLATE/MENTHOL CRM 85GM TP SCH ×2 (08:15→20:35)
[2018-06-05] MEDS: LISINOPRIL 10 MG TABLET PO SCH (08:15)
[2018-06-05] MEDS: SENNA/DOCUSATE TABLET PO SCH (08:15)
[2018-06-05] MEDS: ACETAMINOPHEN 325 MG TABLET PO PRN ×2 (08:15→20:35)
[2018-06-05] MEDS: NYSTATIN CRM 15GM TP SCH ×2 (08:15→20:35)
[2018-06-05 19:50] VITALS: BP 155/76
[2018-06-05] MEDS: TEMAZEPAM 15 MG CAPSULE PO SCH (20:35)
[2018-06-05] MEDS: SIMVASTATIN 10 MG PO SCH (20:35)
[2018-06-06 05:27] VITALS: BP 142/80
[2018-06-06] MEDS: LEVOTHYROXINE 112 MCG TABLET PO SCH (05:30)
[2018-06-06] MEDS: METOPROLOL TARTRATE 25 MG TABLET PO SCH ×2 (05:30→18:11)
[2018-06-06 07:00] VITALS: BP 146/74
[2018-06-06] MEDS: VITAMIN E 400 UNITS CAPSULE PO SCH (08:17)
[2018-06-06] MEDS: SENNA/DOCUSATE TABLET PO SCH (08:18)
[2018-06-06] MEDS: LISINOPRIL 10 MG TABLET PO SCH (08:18)
[2018-06-06] MEDS: ZIPRASIDONE 40MG CAPSULE PO SCH ×2 (08:18→20:01)
[2018-06-06] MEDS: SODIUM CHLORIDE 1 GM TABLET PO SCH ×2 (08:18→19:59)
[2018-06-06] MEDS: DIVALPROEX 125 MG CAP.SPRINK PO SCH ×2 (08:18→20:00)
[2018-06-06] MEDS: LORATADINE 10 MG TABLET PO SCH (08:18)
[2018-06-06] MEDS: NYSTATIN CRM 15GM TP SCH ×2 (08:19→20:02)
[2018-06-06] MEDS: METHYL SALICYLATE/MENTHOL CRM 85GM TP SCH ×2 (08:19→20:02)
[2018-06-06 19:33] VITALS: BP 137/74
[2018-06-06] MEDS: SIMVASTATIN 10 MG PO SCH (20:00)
[2018-06-06] MEDS: TEMAZEPAM 15 MG CAPSULE PO SCH (20:00)
[2018-06-07 07:36] VITALS: BP 150/73
[2018-06-07] MEDS: LEVOTHYROXINE 112 MCG TABLET PO SCH (07:52)
[2018-06-07] MEDS: SENNA/DOCUSATE TABLET PO SCH (07:52)
[2018-06-07] MEDS: LISINOPRIL 10 MG TABLET PO SCH (07:53)
[2018-06-07] MEDS: VITAMIN E 400 UNITS CAPSULE PO SCH (07:53)
[2018-06-07] MEDS: ZIPRASIDONE 40MG CAPSULE PO SCH ×2 (07:53→20:01)
[2018-06-07] MEDS: SODIUM CHLORIDE 1 GM TABLET PO SCH ×2 (07:53→20:01)
[2018-06-07] MEDS: METOPROLOL TARTRATE 25 MG TABLET PO SCH ×2 (07:53→18:25)
[2018-06-07] MEDS: DIVALPROEX 125 MG CAP.SPRINK PO SCH ×2 (07:53→20:05)
[2018-06-07] MEDS: LORATADINE 10 MG TABLET PO SCH (07:53)
[2018-06-07] MEDS: METHYL SALICYLATE/MENTHOL CRM 85GM TP SCH ×2 (08:32→21:00)
[2018-06-07] MEDS: NYSTATIN CRM 15GM TP SCH ×2 (08:32→21:00)
[2018-06-07] MEDS ORDERED: DIAZEPAM 10 MG TABLET PO PRN (09:30)
[2018-06-07] MEDS ORDERED: DIAZEPAM 5 MG TABLET ONE (12:30)
[2018-06-07] MEDS: DIAZEPAM 5 MG TABLET PO PRN (12:34)
[2018-06-07 19:32] VITALS: BP 153/87
[2018-06-07] MEDS: TEMAZEPAM 15 MG CAPSULE PO SCH (20:01)
[2018-06-07] MEDS: SIMVASTATIN 10 MG PO SCH (20:02)
[2018-06-08] MEDS: METOPROLOL TARTRATE 25 MG TABLET PO SCH ×2 (06:00→17:41)
[2018-06-08 06:14] VITALS: BP 154/98
[2018-06-08] MEDS: LEVOTHYROXINE 112 MCG TABLET PO SCH (06:17)
[2018-06-08 07:41] VITALS: BP 165/82
[2018-06-08] MEDS: ZIPRASIDONE 40MG CAPSULE PO SCH ×2 (07:53→20:45)
[2018-06-08] MEDS: VITAMIN E 400 UNITS CAPSULE PO SCH (07:53)
[2018-06-08] MEDS: LISINOPRIL 10 MG TABLET PO SCH (07:53)
[2018-06-08] MEDS: LORATADINE 10 MG TABLET PO SCH (07:53)
[2018-06-08] MEDS: DIVALPROEX 125 MG CAP.SPRINK PO SCH ×2 (07:53→20:45)
[2018-06-08] MEDS: SODIUM CHLORIDE 1 GM TABLET PO SCH ×2 (07:53→20:45)
[2018-06-08] MEDS: SENNA/DOCUSATE TABLET PO SCH (07:53)
[2018-06-08] MEDS: METHYL SALICYLATE/MENTHOL CRM 85GM TP SCH ×2 (09:09→21:41)
[2018-06-08] MEDS: NYSTATIN CRM 15GM TP SCH ×2 (09:09→21:41)
[2018-06-08 17:30] VITALS: BP 183/91
[2018-06-08] MEDS: DIAZEPAM 5 MG TABLET PO PRN ×2 (17:41→20:46)
[2018-06-08 19:19] VITALS: BP 159/88
[2018-06-08] MEDS: SIMVASTATIN 10 MG PO SCH (20:45)
[2018-06-08] MEDS: TEMAZEPAM 15 MG CAPSULE PO SCH (20:46)
[2018-06-09] MEDS: METOPROLOL TARTRATE 25 MG TABLET PO SCH ×2 (05:14→18:43)
[2018-06-09] MEDS: LEVOTHYROXINE 112 MCG TABLET PO SCH (05:14)
[2018-06-09 08:00] VITALS: BP 126/89
[2018-06-09] MEDS: NYSTATIN CRM 15GM TP SCH ×2 (09:23→19:45)
[2018-06-09] MEDS: METHYL SALICYLATE/MENTHOL CRM 85GM TP SCH ×2 (09:23→19:45)
[2018-06-09] MEDS: ZIPRASIDONE 40MG CAPSULE PO SCH ×2 (09:24→19:36)
[2018-06-09] MEDS: SENNA/DOCUSATE TABLET PO SCH (09:24)
[2018-06-09] MEDS: LISINOPRIL 10 MG TABLET PO SCH (09:24)
[2018-06-09] MEDS: DIVALPROEX 125 MG CAP.SPRINK PO SCH ×2 (09:24→19:36)
[2018-06-09] MEDS: LORATADINE 10 MG TABLET PO SCH (09:24)
[2018-06-09] MEDS: SODIUM CHLORIDE 1 GM TABLET PO SCH ×2 (09:24→19:36)
[2018-06-09] MEDS: DIAZEPAM 5 MG TABLET PO PRN ×2 (09:24→19:36)
[2018-06-09] MEDS: VITAMIN E 400 UNITS CAPSULE PO SCH (09:32)
[2018-06-09 19:20] VITALS: BP 124/80
[2018-06-09] MEDS: TEMAZEPAM 15 MG CAPSULE PO SCH (19:36)
[2018-06-09] MEDS: SIMVASTATIN 10 MG PO SCH (19:36)
[2018-06-10] MEDS: DIAZEPAM 5 MG TABLET PO PRN ×2 (03:38→06:05)
[2018-06-10 06:00] VITALS: BP 136/73
[2018-06-10] MEDS: LEVOTHYROXINE 112 MCG TABLET PO SCH (06:05)
[2018-06-10] MEDS: METOPROLOL TARTRATE 25 MG TABLET PO SCH ×2 (06:05→19:18)
[2018-06-10 07:33] VITALS: BP 123/73
[2018-06-10] MEDS: SENNA/DOCUSATE TABLET PO SCH (08:14)
[2018-06-10] MEDS: SODIUM CHLORIDE 1 GM TABLET PO SCH ×2 (08:18→20:39)
[2018-06-10] MEDS: DIVALPROEX 125 MG CAP.SPRINK PO SCH ×2 (08:18→20:39)
[2018-06-10] MEDS: VITAMIN E 400 UNITS CAPSULE PO SCH (08:18)
[2018-06-10] MEDS: LORATADINE 10 MG TABLET PO SCH (08:19)
[2018-06-10] MEDS: ZIPRASIDONE 40MG CAPSULE PO SCH ×2 (08:19→20:39)
[2018-06-10] MEDS: LISINOPRIL 10 MG TABLET PO SCH (08:19)
[2018-06-10] MEDS: NYSTATIN CRM 15GM TP SCH ×2 (09:00→20:40)
[2018-06-10] MEDS: METHYL SALICYLATE/MENTHOL CRM 85GM TP SCH ×2 (09:03→20:40)
[2018-06-10 19:26] VITALS: BP 179/100
[2018-06-10] MEDS: TEMAZEPAM 15 MG CAPSULE PO SCH (20:39)
[2018-06-10] MEDS: SIMVASTATIN 10 MG PO SCH (20:39)
[2018-06-11] MEDS: METOPROLOL TARTRATE 25 MG TABLET PO SCH ×2 (05:08→18:33)
[2018-06-11] MEDS: LEVOTHYROXINE 112 MCG TABLET PO SCH (05:09)
[2018-06-11] MEDS: DIAZEPAM 5 MG TABLET PO PRN ×2 (07:18→14:24)
[2018-06-11 07:34] VITALS: BP 121/68
[2018-06-11] MEDS: SODIUM CHLORIDE 1 GM TABLET PO SCH ×2 (08:30→20:17)
[2018-06-11] MEDS: SENNA/DOCUSATE TABLET PO SCH (08:30)
[2018-06-11] MEDS: DIVALPROEX 125 MG CAP.SPRINK PO SCH (08:30)
[2018-06-11] MEDS: LISINOPRIL 10 MG TABLET PO SCH (08:31)
[2018-06-11] MEDS: LORATADINE 10 MG TABLET PO SCH (08:31)
[2018-06-11] MEDS: ZIPRASIDONE 40MG CAPSULE PO SCH (08:31)
[2018-06-11] MEDS: VITAMIN E 400 UNITS CAPSULE PO SCH (08:32)
[2018-06-11] MEDS: METHYL SALICYLATE/MENTHOL CRM 85GM TP SCH ×2 (08:32→21:56)
[2018-06-11] MEDS: NYSTATIN CRM 15GM TP SCH ×2 (08:32→21:56)
[2018-06-11 18:29] VITALS: BP 155/82
[2018-06-11 19:32] VITALS: BP 143/108
[2018-06-11] MEDS: TEMAZEPAM 15 MG CAPSULE PO SCH (20:17)
[2018-06-11] MEDS: ZIPRASIDONE 20MG CAPSULE PO SCH (20:17)
[2018-06-11] MEDS: OXCARBAZEPINE 150 MG TABLET PO SCH (20:18)
[2018-06-11] MEDS: SIMVASTATIN 10 MG PO SCH (20:18)
[2018-06-11] MEDS ORDERED: ZIPRASIDONE 40MG CAPSULE PO SCH (21:00)
[2018-06-12] MEDS: LEVOTHYROXINE 112 MCG TABLET PO SCH (06:02)
[2018-06-12] MEDS: METOPROLOL TARTRATE 25 MG TABLET PO SCH ×2 (06:02→18:49)
[2018-06-12 07:12] VITALS: BP 174/78
[2018-06-12] MEDS: SODIUM CHLORIDE 1 GM TABLET PO SCH ×2 (08:28→20:05)
[2018-06-12] MEDS: LORATADINE 10 MG TABLET PO SCH (08:29)
[2018-06-12] MEDS: ZIPRASIDONE 20MG CAPSULE PO SCH ×2 (08:29→20:05)
[2018-06-12] MEDS: OXCARBAZEPINE 150 MG TABLET PO SCH ×2 (08:29→20:06)
[2018-06-12] MEDS: SENNA/DOCUSATE TABLET PO SCH (08:30)
[2018-06-12] MEDS: LISINOPRIL 10 MG TABLET PO SCH (08:30)
[2018-06-12] MEDS: VITAMIN E 400 UNITS CAPSULE PO SCH (08:31)
[2018-06-12] MEDS: METHYL SALICYLATE/MENTHOL CRM 85GM TP SCH ×2 (08:31→20:07)
[2018-06-12] MEDS: NYSTATIN CRM 15GM TP SCH ×2 (08:31→20:07)
[2018-06-12] MEDS: ACETAMINOPHEN 325 MG TABLET PO PRN (12:08)
[2018-06-12] MEDS: DIAZEPAM 5 MG TABLET PO PRN ×2 (12:30→20:06)
[2018-06-12 18:46] VITALS: BP 117/65
[2018-06-12 19:49] VITALS: BP 161/95
[2018-06-12] MEDS: TEMAZEPAM 15 MG CAPSULE PO SCH (20:05)
[2018-06-12] MEDS: SIMVASTATIN 10 MG PO SCH (20:06)
[2018-06-13] VITALS (14 sets, daily range): BP systolic 82–163; BP diastolic 44–96
[2018-06-13] MEDS: METOPROLOL TARTRATE 25 MG TABLET PO SCH ×2 (05:34→18:06)
[2018-06-13] MEDS: LEVOTHYROXINE 112 MCG TABLET PO SCH (05:34)
[2018-06-13] MEDS: ZIPRASIDONE 20MG CAPSULE PO SCH (08:18)
[2018-06-13] MEDS: LORATADINE 10 MG TABLET PO SCH (08:18)
[2018-06-13] MEDS: SENNA/DOCUSATE TABLET PO SCH (08:18)
[2018-06-13] MEDS: SODIUM CHLORIDE 1 GM TABLET PO SCH ×2 (08:18→20:35)
[2018-06-13] MEDS: OXCARBAZEPINE 150 MG TABLET PO SCH ×2 (08:19→20:35)
[2018-06-13] MEDS: VITAMIN E 400 UNITS CAPSULE PO SCH (08:19)
[2018-06-13] MEDS: METHYL SALICYLATE/MENTHOL CRM 85GM TP SCH ×2 (08:20→21:00)
[2018-06-13] MEDS: NYSTATIN CRM 15GM TP SCH ×2 (08:20→21:00)
[2018-06-13] MEDS: LISINOPRIL 10 MG TABLET PO SCH (09:00)
[2018-06-13] MEDS: DIAZEPAM 5 MG TABLET PO PRN (15:11)
[2018-06-13 15:23] LABS: ANION GAP 9 mmol/L (5-15); CALCIUM 9.5 mg/dL (8.5-10.1); CHLORIDE 106 mmol/L (98-107)
[2018-06-13 16:05] LABS: CULTURE INDICATED? YES; MICROSCOPIC INDICATED
[2018-06-13] MEDS ORDERED: CEFTRIAXONE PMX 1GM/50ML 50 ML IV SCH (18:00)
[2018-06-13] MEDS: SODIUM CHLORIDE 0.9% 1,000 ML IV SCH (18:15)
[2018-06-13 18:30] LABS: BASOPHILS # (AUTO) 0.05 x10^3/uL (0-0.1); BASOPHILS % (AUTO) 1 % (0-1); EOSINOPHILS # (AUTO) 0.08 x10^3/uL (0-0.4); EOSINOPHILS % (AUTO) 1 % (1-7); LYMPHOCYTES # (AUTO) 2.07 x10^3/uL (1-3.4); LYMPHOCYTES % (AUTO) 24 % (22-44); MD NO; MEAN CORPUSCULAR HEMOGLOBIN 32.1 pg (27.0-34.8); MEAN CORPUSCULAR HGB CONC 33.6 g/dL (32.4-35.8); MEAN CORPUSCULAR VOLUME 95.5 fL (80-100); MEAN PLATELET VOLUME 8.3 fL (7.4-10.4); MONOCYTES # (AUTO) 0.64 x10^3/uL (0.2-0.8); MONOCYTES % (AUTO) 8 % (2-9); NEUTROPHILS # (AUTO) 5.73 x10^3/uL (1.8-6.8); NEUTROPHILS % (AUTO) 67 % (42-75); PLATELET COUNT 142 x10^3/uL (130-400); RED BLOOD COUNT 4.45 x10^6/uL (3.82-5.3); RED CELL DISTRIBUTION WIDTH 12.7 % (9.6-15.2)
[2018-06-13] MEDS: TEMAZEPAM 15 MG CAPSULE PO SCH (20:35)
[2018-06-13] MEDS: SIMVASTATIN 10 MG PO SCH (20:36)
[2018-06-14] MEDS: LEVOTHYROXINE 112 MCG TABLET PO SCH (05:21)
[2018-06-14] MEDS: METOPROLOL TARTRATE 25 MG TABLET PO SCH ×2 (05:21→18:10)
[2018-06-14 07:37] VITALS: BP 146/84
[2018-06-14] MEDS: SODIUM CHLORIDE 0.9% 1,000 ML IV SCH (07:44)
[2018-06-14 07:46] LABS: ALBUMIN 3.2 g/dL (3.4-5.0); ANION GAP 3 mmol/L (5-15); CALCIUM 8.9 mg/dL (8.5-10.1); CHLORIDE 108 mmol/L (98-107); CREATININE 1.34 mg/dL (0.55-1.02)
[2018-06-14] MEDS: METHYL SALICYLATE/MENTHOL CRM 85GM TP SCH ×2 (08:18→21:00)
[2018-06-14] MEDS: VITAMIN E 400 UNITS CAPSULE PO SCH (08:18)
[2018-06-14] MEDS: SENNA/DOCUSATE TABLET PO SCH (08:18)
[2018-06-14] MEDS: LORATADINE 10 MG TABLET PO SCH (08:19)
[2018-06-14] MEDS: OXCARBAZEPINE 150 MG TABLET PO SCH ×2 (08:19→20:10)
[2018-06-14] MEDS: NYSTATIN CRM 15GM TP SCH ×2 (08:19→21:00)
[2018-06-14] MEDS: SODIUM CHLORIDE 1 GM TABLET PO SCH ×2 (08:19→20:10)
[2018-06-14] MEDS: ACETAMINOPHEN 325 MG TABLET PO PRN (08:58)
[2018-06-14 18:25] VITALS: BP 138/58
[2018-06-14 19:47] VITALS: BP 154/69
[2018-06-14] MEDS: TEMAZEPAM 15 MG CAPSULE PO SCH (20:10)
[2018-06-14] MEDS: SIMVASTATIN 10 MG PO SCH (20:10)
[2018-06-14 21:56] LABS: MICROSCOPIC AUTO
[2018-06-14 22:02] LABS: CULTURE INDICATED? YES
[2018-06-15 06:16] LABS: ALBUMIN 3.3 g/dL (3.4-5.0); ANION GAP 9 mmol/L (5-15); CALCIUM 8.5 mg/dL (8.5-10.1); CHLORIDE 106 mmol/L (98-107)
[2018-06-15 06:18] LABS: CREATININE 1.06 mg/dL (0.55-1.02)
[2018-06-15 08:57] VITALS: BP 161/89
[2018-06-15] MEDS: LEVOTHYROXINE 112 MCG TABLET PO SCH (08:59)
[2018-06-15] MEDS: METOPROLOL TARTRATE 25 MG TABLET PO SCH ×2 (08:59→22:16)
[2018-06-15] MEDS: LORATADINE 10 MG TABLET PO SCH (08:59)
[2018-06-15] MEDS: VITAMIN E 400 UNITS CAPSULE PO SCH (09:00)
[2018-06-15] MEDS: CEFDINIR 300 MG CAPSULE PO SCH ×2 (09:00→22:11)
[2018-06-15] MEDS: METHYL SALICYLATE/MENTHOL CRM 85GM TP SCH ×2 (09:00→21:30)
[2018-06-15] MEDS: OXCARBAZEPINE 150 MG TABLET PO SCH ×2 (09:00→22:11)
[2018-06-15] MEDS: SODIUM CHLORIDE 1 GM TABLET PO SCH ×2 (09:00→21:30)
[2018-06-15] MEDS: NYSTATIN CRM 15GM TP SCH ×2 (09:05→21:30)
[2018-06-15] MEDS: SENNA/DOCUSATE TABLET PO SCH (09:05)
[2018-06-15 19:19] VITALS: BP 135/92
[2018-06-15] MEDS: SIMVASTATIN 10 MG PO SCH (22:11)
[2018-06-15] MEDS: TEMAZEPAM 15 MG CAPSULE PO SCH (22:11)
[2018-06-16 05:25] VITALS: BP 160/89
[2018-06-16] MEDS: METOPROLOL TARTRATE 25 MG TABLET PO SCH ×2 (05:29→17:54)
[2018-06-16] MEDS: LEVOTHYROXINE 112 MCG TABLET PO SCH (05:29)
[2018-06-16 08:35] VITALS: BP 175/78
[2018-06-16] MEDS: OXCARBAZEPINE 150 MG TABLET PO SCH ×2 (08:46→20:07)
[2018-06-16] MEDS: NYSTATIN CRM 15GM TP SCH ×2 (08:46→19:15)
[2018-06-16] MEDS: CEFDINIR 300 MG CAPSULE PO SCH ×2 (08:46→20:06)
[2018-06-16] MEDS: LORATADINE 10 MG TABLET PO SCH (08:47)
[2018-06-16] MEDS: SENNA/DOCUSATE TABLET PO SCH (08:47)
[2018-06-16] MEDS: VITAMIN E 400 UNITS CAPSULE PO SCH (08:47)
[2018-06-16] MEDS: SODIUM CHLORIDE 1 GM TABLET PO SCH ×2 (08:48→20:06)
[2018-06-16] MEDS: METHYL SALICYLATE/MENTHOL CRM 85GM TP SCH ×2 (09:12→19:15)
[2018-06-16 17:52] VITALS: BP 169/86
[2018-06-16 20:05] VITALS: BP 160/88
[2018-06-16] MEDS: TEMAZEPAM 15 MG CAPSULE PO SCH (20:06)
[2018-06-16] MEDS: SIMVASTATIN 10 MG PO SCH (20:06)
[2018-06-17] MEDS: LEVOTHYROXINE 112 MCG TABLET PO SCH (05:26)
[2018-06-17] MEDS: METOPROLOL TARTRATE 25 MG TABLET PO SCH ×2 (05:26→20:37)
[2018-06-17 07:35] VITALS: BP 153/78
[2018-06-17] MEDS: LORATADINE 10 MG TABLET PO SCH (08:52)
[2018-06-17] MEDS: OXCARBAZEPINE 150 MG TABLET PO SCH ×2 (08:52→20:29)
[2018-06-17] MEDS: CEFDINIR 300 MG CAPSULE PO SCH ×2 (08:53→20:28)
[2018-06-17] MEDS: SODIUM CHLORIDE 1 GM TABLET PO SCH ×2 (08:54→20:29)
[2018-06-17] MEDS: VITAMIN E 400 UNITS CAPSULE PO SCH (08:54)
[2018-06-17] MEDS: DIAZEPAM 5 MG TABLET PO PRN ×2 (08:54→13:50)
[2018-06-17] MEDS: SENNA/DOCUSATE TABLET PO SCH (08:54)
[2018-06-17] MEDS: METHYL SALICYLATE/MENTHOL CRM 85GM TP SCH ×2 (08:55→21:01)
[2018-06-17] MEDS: NYSTATIN CRM 15GM TP SCH ×2 (09:00→20:00)
[2018-06-17] MEDS ORDERED: RISPERIDONE 1 MG TABLET ONE (13:35)
[2018-06-17] MEDS: RISPERIDONE 1 MG TAB.RAPDIS PO SCH ×2 (13:50→20:35)
[2018-06-17 19:25] VITALS: BP 117/79
[2018-06-17] MEDS: SIMVASTATIN 10 MG PO SCH (20:29)
[2018-06-17] MEDS: TEMAZEPAM 15 MG CAPSULE PO SCH (20:29)
[2018-06-17] MEDS ORDERED: RISPERIDONE 1 MG TAB.RAPDIS PO SCH (21:00)
[2018-06-18] MEDS: LEVOTHYROXINE 112 MCG TABLET PO SCH (05:07)
[2018-06-18] MEDS: METOPROLOL TARTRATE 25 MG TABLET PO SCH ×2 (05:07→18:25)
[2018-06-18 07:23] VITALS: BP 153/91
[2018-06-18] MEDS: VITAMIN E 400 UNITS CAPSULE PO SCH (09:00)
[2018-06-18] MEDS: LORATADINE 10 MG TABLET PO SCH (09:00)
[2018-06-18] MEDS: NYSTATIN CRM 15GM TP SCH ×2 (09:28→20:23)
[2018-06-18] MEDS: SODIUM CHLORIDE 1 GM TABLET PO SCH ×2 (09:28→20:21)
[2018-06-18] MEDS: METHYL SALICYLATE/MENTHOL CRM 85GM TP SCH ×2 (09:28→20:22)
[2018-06-18] MEDS: OXCARBAZEPINE 150 MG TABLET PO SCH ×2 (09:28→20:21)
[2018-06-18] MEDS: RISPERIDONE 1 MG TAB.RAPDIS PO SCH ×2 (09:28→20:22)
[2018-06-18] MEDS: SENNA/DOCUSATE TABLET PO SCH (09:28)
[2018-06-18 18:19] VITALS: BP 156/126
[2018-06-18 19:20] VITALS: BP 157/78
[2018-06-18] MEDS: TEMAZEPAM 15 MG CAPSULE PO SCH (20:20)
[2018-06-18] MEDS: SIMVASTATIN 10 MG PO SCH (20:21)
[2018-06-19] MEDS: ACETAMINOPHEN 325 MG TABLET PO PRN (03:01)
[2018-06-19] MEDS: METOPROLOL TARTRATE 25 MG TABLET PO SCH ×2 (05:11→17:21)
[2018-06-19] MEDS: LEVOTHYROXINE 112 MCG TABLET PO SCH (05:12)
[2018-06-19 07:18] VITALS: BP 155/86
[2018-06-19] MEDS: METHYL SALICYLATE/MENTHOL CRM 85GM TP SCH ×2 (08:59→21:13)
[2018-06-19] MEDS: SENNA/DOCUSATE TABLET PO SCH (08:59)
[2018-06-19] MEDS: SODIUM CHLORIDE 1 GM TABLET PO SCH ×2 (09:00→20:17)
[2018-06-19] MEDS: NYSTATIN CRM 15GM TP SCH ×2 (09:00→21:15)
[2018-06-19] MEDS: VITAMIN E 400 UNITS CAPSULE PO SCH (09:00)
[2018-06-19] MEDS: OXCARBAZEPINE 150 MG TABLET PO SCH ×2 (09:00→20:17)
[2018-06-19] MEDS: LORATADINE 10 MG TABLET PO SCH (09:00)
[2018-06-19] MEDS: RISPERIDONE 1 MG TAB.RAPDIS PO SCH ×2 (09:00→20:17)
[2018-06-19 17:20] VITALS: BP 157/92
[2018-06-19 19:27] VITALS: BP 164/88
[2018-06-19] MEDS: TEMAZEPAM 15 MG CAPSULE PO SCH (20:16)
[2018-06-19] MEDS: SIMVASTATIN 10 MG PO SCH (20:18)
[2018-06-20] MEDS: METOPROLOL TARTRATE 25 MG TABLET PO SCH ×2 (05:09→17:26)
[2018-06-20] MEDS: LEVOTHYROXINE 112 MCG TABLET PO SCH (05:09)
[2018-06-20 07:08] VITALS: BP 160/89
[2018-06-20] MEDS: SENNA/DOCUSATE TABLET PO SCH (09:02)
[2018-06-20] MEDS: SODIUM CHLORIDE 1 GM TABLET PO SCH ×2 (09:02→21:20)
[2018-06-20] MEDS: OXCARBAZEPINE 150 MG TABLET PO SCH ×2 (09:03→21:22)
[2018-06-20] MEDS: LORATADINE 10 MG TABLET PO SCH (09:03)
[2018-06-20] MEDS: VITAMIN E 400 UNITS CAPSULE PO SCH (09:04)
[2018-06-20] MEDS: RISPERIDONE 1 MG TAB.RAPDIS PO SCH ×2 (09:04→21:21)
[2018-06-20] MEDS: METHYL SALICYLATE/MENTHOL CRM 85GM TP SCH ×2 (09:16→21:00)
[2018-06-20] MEDS: NYSTATIN CRM 15GM TP SCH ×2 (09:16→21:00)
[2018-06-20 15:51] LABS: TRIGLYCERIDES 474 mg/dL (50-200)
[2018-06-20 15:55] LABS: CHOL/HDL RATIO 4.2; CHOLESTEROL, TOTAL 179 mg/dL (140-239); HDL CHOL % 24 % (28-40); HDL CHOLESTEROL (DIRECT) 43 mg/dL (40-60)
[2018-06-20 17:24] VITALS: BP 153/76
[2018-06-20] MEDS: ACETAMINOPHEN 325 MG TABLET PO PRN (18:11)
[2018-06-20] MEDS ORDERED: OXCA150T18 PO (18:13)
[2018-06-20] MEDS ORDERED: RISP-2 PO (18:13)
[2018-06-20] MEDS ORDERED: DIAZ5TAB4 PO (18:13)
[2018-06-20] MEDS ORDERED: LEVO112T2 PO (18:13)
[2018-06-20] MEDS ORDERED: LORA10TA75 PO (18:13)
[2018-06-20] MEDS ORDERED: METO25TA35 PO (18:13)
[2018-06-20] MEDS ORDERED: SODI1TAB PO (18:13)
[2018-06-20] MEDS ORDERED: SENN1TAB8 PO (18:13)
[2018-06-20] MEDS ORDERED: TEMA15CA6 PO (18:13)
[2018-06-20] MEDS ORDERED: SIMV10TA3 PO (18:13)
[2018-06-20] MEDS ORDERED: VITA400C9 PO (18:13)
[2018-06-20 19:44] VITALS: BP 132/74
[2018-06-20] MEDS: SIMVASTATIN 10 MG PO SCH (21:21)
[2018-06-20] MEDS: TEMAZEPAM 15 MG CAPSULE PO SCH (21:22)
[2018-06-21] MEDS: ACETAMINOPHEN 325 MG TABLET PO PRN (03:11)
[2018-06-21 05:33] VITALS: BP 126/84
[2018-06-21] MEDS: METOPROLOL TARTRATE 25 MG TABLET PO SCH (05:35)
[2018-06-21] MEDS: LEVOTHYROXINE 112 MCG TABLET PO SCH (05:36)
[2018-06-21 07:05] VITALS: BP 155/87
[2018-06-21] MEDS: OXCARBAZEPINE 150 MG TABLET PO SCH (08:16)
[2018-06-21] MEDS: SODIUM CHLORIDE 1 GM TABLET PO SCH (08:16)
[2018-06-21] MEDS: RISPERIDONE 1 MG TAB.RAPDIS PO SCH (08:16)
[2018-06-21] MEDS: LORATADINE 10 MG TABLET PO SCH (08:17)
[2018-06-21] MEDS: SENNA/DOCUSATE TABLET PO SCH (08:18)
[2018-06-21] MEDS: VITAMIN E 400 UNITS CAPSULE PO SCH (08:19)
[2018-06-21] MEDS: METHYL SALICYLATE/MENTHOL CRM 85GM TP SCH (08:19)
[2018-06-21] MEDS: NYSTATIN CRM 15GM TP SCH (08:19)
[2018-06-21] MEDS ORDERED: DIAZEPAM 5 MG TABLET PO ONE (12:00)
== END 2018-06-21 12:44 | DRG 885 ==
LOC: 3E 11:17
PROVIDERS: ADMIT Psychiatry & Neurology Psychosomatic Medicine; ATTEND Psychiatry & Neurology Psychosomatic Medicine
DX: F20.0 Paranoid schizophrenia (principal); N39.0 Urinary tract infection, site not specified; E87.1 Hypo-osmolality and hyponatremia; W18.30XA Fall on same level, unspecified, initial encounter; I25.10 Atherosclerotic heart disease of native coronary artery without angina pectoris; N18.9 Chronic kidney disease, unspecified; M19.90 Unspecified osteoarthritis, unspecified site; Z66 Do not resuscitate; F17.210 Nicotine dependence, cigarettes, uncomplicated; F01.50 Vascular dementia, unspecified severity, without behavioral disturbance, psychotic disturbance, mood disturbance, and anxiety; E03.9 Hypothyroidism, unspecified; E11.22 Type 2 diabetes mellitus with diabetic chronic kidney disease; E78.5 Hyperlipidemia, unspecified; G89.29 Other chronic pain; I13.10 Hypertensive heart and chronic kidney disease without heart failure, with stage 1 through stage 4 chronic kidney disease, or unspecified chronic kidney disease; G47.00 Insomnia, unspecified; J44.9 Chronic obstructive pulmonary disease, unspecified; F09 Unspecified mental disorder due to known physiological condition; E66.9 Obesity, unspecified; K59.00 Constipation, unspecified; Y93.89 Activity, other specified; Y92.89 Other specified places as the place of occurrence of the external cause; Y99.8 Other external cause status; Z79.899 Other long term (current) drug therapy; Z68.37 Body mass index [BMI] 37.0-37.9, adult
CPT/HCPCS: 36415; 71045; 80048; 80053; 80061; 80164; 81001; 81003; 82040; 82140; 82550; 82607; 84436; 84443; 85025; 85651; 86592; 87086; 93005; J0696; 92523-GN; J7030

== ENCOUNTER 2018-06-21 14:30 | Emergency (ER) | payer MEDICAID ==
[~2018-06-21] VITALS: Ht 149.9 cm; Wt 75.0 kg
[~2018-06-21 14:30] MED LIST changes: +ALPR0.25 PO; +DIAZ5TAB4 PO; +LORA10TA75 PO; +OXCA150T18 PO; +RISP-2 PO; +SENN1TAB8 PO; +SIMV10TA3 PO; +TEMA15CA6 PO; +VITA400C9 PO; +ZIPR20CA2 PO
[2018-06-21 18:38] LABS: BASOPHILS # (AUTO) 0.03 x10^3/uL (0-0.1); BASOPHILS % (AUTO) 1 % (0-1); EOSINOPHILS # (AUTO) 0.12 x10^3/uL (0-0.4); EOSINOPHILS % (AUTO) 2 % (1-7); LYMPHOCYTES % (AUTO) 38 % (22-44); MD NO; MEAN CORPUSCULAR HEMOGLOBIN 32.6 pg (27.0-34.8); MEAN CORPUSCULAR HGB CONC 34.8 g/dL (32.4-35.8); MEAN CORPUSCULAR VOLUME 93.8 fL (80-100); MEAN PLATELET VOLUME 7.9 fL (7.4-10.4); MONOCYTES # (AUTO) 0.76 x10^3/uL (0.2-0.8); MONOCYTES % (AUTO) 11 % (2-9); NEUTROPHILS # (AUTO) 3.26 x10^3/uL (1.8-6.8); NEUTROPHILS % (AUTO) 49 % (42-75); PLATELET COUNT 189 x10^3/uL (130-400); RED BLOOD COUNT 4.26 x10^6/uL (3.82-5.3); RED CELL DISTRIBUTION WIDTH 12.8 % (9.6-15.2)
[2018-06-21 18:50] LABS: ALANINE AMINOTRANSFERASE 32 U/L (12-78); ALBUMIN 3.5 g/dL (3.4-5.0); ANION GAP 8 mmol/L (5-15); CALCIUM 8.7 mg/dL (8.5-10.1); CHLORIDE 95 mmol/L (98-107)
[2018-06-21 18:51] LABS: SALICYLATE LEVEL < 1.7 mg/dL (2.8-20.0)
[2018-06-21 18:53] LABS: ACETAMINOPHEN < 2 mcg/mL (10-30); ALKALINE PHOSPHATASE 99 U/L (45-117); BILIRUBIN,TOTAL 0.2 mg/dL (0.2-1.0); TOTAL PROTEIN 7.4 g/dL (6.4-8.2)
[2018-06-21 19:23] LABS: AMPHETAMINE SCREEN, URINE Negative (Negative); BARBITURATE SCREEN, URINE Negative (Negative); BENZODIAZEPINE SCREEN, URINE Positive (Negative); CANNABINOID SCREEN, URINE Negative (Negative); COCAINE SCREEN, URINE Negative (Negative); METHADONE SCREEN, URINE Negative (Negative); OPIATE SCREEN, URINE Negative (Negative)
[2018-06-22] MEDS ORDERED: ACETAMINOPHEN 325 MG TABLET ONE (01:58)
[2018-06-22] MEDS ORDERED: ACETAMINOPHEN 325 MG TABLET PO ONE (02:00)
[2018-06-22] MEDS ORDERED: LEVOTHYROXINE 112 MCG TABLET PO ONE (07:30)
[2018-06-22] MEDS ORDERED: LORATADINE 10 MG TABLET PO ONE (07:30)
[2018-06-22 08:10] VITALS: BP 162/79
[2018-06-22] MEDS ORDERED: METOPROLOL TARTRATE 25 MG TABLET ONE (08:13)
[2018-06-22] MEDS ORDERED: LISINOPRIL 10 MG TABLET ONE (08:13)
[2018-06-22] MEDS ORDERED: LISINOPRIL 10 MG TABLET PO ONE (08:30)
[2018-06-22] MEDS ORDERED: METOPROLOL TARTRATE 50 MG TABLET PO ONE (08:30)
== END 2018-06-22 19:16 | disposition short-term general hospital (02) ==
LOC: ED 14:40
DX: F20.1 Disorganized schizophrenia (principal); I10 Essential (primary) hypertension; E11.9 Type 2 diabetes mellitus without complications; J44.9 Chronic obstructive pulmonary disease, unspecified; E78.5 Hyperlipidemia, unspecified; F17.200 Nicotine dependence, unspecified, uncomplicated; F41.1 Generalized anxiety disorder
CPT/HCPCS: 36415; 80053; 80307; 80329; 85025; 99285; G0480

== ENCOUNTER 2018-06-22 18:04 | Inpatient (IN) | payer MEDICAID ==
[~2018-06-22] VITALS: Ht 144.8 cm; Wt 79.7 kg
[2018-06-22] MEDS ORDERED: ACETAMINOPHEN 325 MG TABLET PO PRN (18:30)
[2018-06-22] MEDS ORDERED: BISACODYL 10 MG SUPP PR PRN ×2 (18:30)
[2018-06-22] MEDS ORDERED: POLYETHYLENE GLYCOL 17 GM PACKET PO PRN ×2 (18:30)
[2018-06-22] MEDS ORDERED: ONDANSETRON 4 MG TABLET PO PRN (18:30)
[2018-06-22] MEDS ORDERED: ONDANSETRON ODT 4 MG PO PRN (18:30)
[2018-06-22] MEDS ORDERED: DOCUSATE 100 MG CAPSULE PO PRN ×2 (18:30)
[2018-06-22 19:19] VITALS: BP_SYST 130; BP_SYST 139; BP_DIAS 75; BP_DIAS 80; BP_DIAS 81
[2018-06-22] MEDS: TEMAZEPAM 15 MG CAPSULE PO SCH (20:35)
[2018-06-22] MEDS: SODIUM CHLORIDE 1 GM TABLET PO SCH (20:36)
[2018-06-22] MEDS: SIMVASTATIN 10 MG TABLET PO SCH (20:36)
[2018-06-22] MEDS: RISPERIDONE 1 MG TABLET PO SCH (20:36)
[2018-06-22] MEDS: OXCARBAZEPINE 150 MG TABLET PO SCH (20:36)
[2018-06-22] MEDS: METHYL SALICYLATE/MENTHOL CRM 85GM TP SCH (20:37)
[2018-06-22] MEDS: NYSTATIN CRM 15GM TP SCH (20:37)
[2018-06-23 05:50] VITALS: BP 131/78
[2018-06-23] MEDS: METOPROLOL TARTRATE 25 MG TABLET PO SCH ×2 (05:52→18:09)
[2018-06-23] MEDS: LEVOTHYROXINE 112 MCG TABLET PO SCH (05:52)
[2018-06-23 08:18] VITALS: BP 143/88
[2018-06-23] MEDS: NYSTATIN CRM 15GM TP SCH ×2 (09:00→21:00)
[2018-06-23] MEDS ORDERED: SENNA/DOCUSATE TABLET PO SCH (09:00)
[2018-06-23] MEDS: LORATADINE 10 MG TABLET PO SCH (09:00)
[2018-06-23] MEDS: VITAMIN E 400 UNITS CAPSULE PO SCH (09:00)
[2018-06-23] MEDS: RISPERIDONE 1 MG TABLET PO SCH ×2 (09:18→20:57)
[2018-06-23] MEDS: OXCARBAZEPINE 150 MG TABLET PO SCH ×2 (09:19→20:58)
[2018-06-23] MEDS: SENNA/DOCUSATE TABLET PO SCH (09:19)
[2018-06-23] MEDS: SODIUM CHLORIDE 1 GM TABLET PO SCH ×2 (09:19→20:57)
[2018-06-23] MEDS: METHYL SALICYLATE/MENTHOL CRM 85GM TP SCH ×2 (09:22→21:00)
[2018-06-23 19:15] VITALS: BP 138/84
[2018-06-23] MEDS: TEMAZEPAM 15 MG CAPSULE PO SCH (20:57)
[2018-06-23] MEDS: SIMVASTATIN 10 MG TABLET PO SCH (20:58)
[2018-06-24] MEDS: METOPROLOL TARTRATE 25 MG TABLET PO SCH ×2 (05:45→18:13)
[2018-06-24] MEDS: LEVOTHYROXINE 112 MCG TABLET PO SCH (05:45)
[2018-06-24 06:22] LABS: BASOPHILS # (AUTO) 0.03 x10^3/uL (0-0.1); BASOPHILS % (AUTO) 0 % (0-1); EOSINOPHILS % (AUTO) 2 % (1-7); LYMPHOCYTES % (AUTO) 39 % (22-44); MD NO; MEAN CORPUSCULAR HEMOGLOBIN 32.1 pg (27.0-34.8); MEAN CORPUSCULAR VOLUME 94.6 fL (80-100); MONOCYTES # (AUTO) 0.61 x10^3/uL (0.2-0.8); MONOCYTES % (AUTO) 9 % (2-9); NEUTROPHILS # (AUTO) 3.41 x10^3/uL (1.8-6.8); NEUTROPHILS % (AUTO) 51 % (42-75); PLATELET COUNT 204 x10^3/uL (130-400); RED BLOOD COUNT 4.37 x10^6/uL (3.82-5.3); RED CELL DISTRIBUTION WIDTH 13.2 % (9.6-15.2)
[2018-06-24 06:27] LABS: ANION GAP 5 mmol/L (5-15); CALCIUM 8.5 mg/dL (8.5-10.1); CHLORIDE 93 mmol/L (98-107); CREATININE 0.87 mg/dL (0.55-1.02)
[2018-06-24 07:18] VITALS: BP 150/77
[2018-06-24] MEDS: SODIUM CHLORIDE 1 GM TABLET PO SCH ×3 (08:44→20:08)
[2018-06-24] MEDS: OXCARBAZEPINE 150 MG TABLET PO SCH ×2 (08:44→20:09)
[2018-06-24] MEDS: LORATADINE 10 MG TABLET PO SCH (08:45)
[2018-06-24] MEDS: RISPERIDONE 1 MG TABLET PO SCH ×2 (08:45→20:09)
[2018-06-24] MEDS: METHYL SALICYLATE/MENTHOL CRM 85GM TP SCH ×2 (08:45→09:01)
[2018-06-24] MEDS: VITAMIN E 400 UNITS CAPSULE PO SCH (08:45)
[2018-06-24] MEDS: SENNA/DOCUSATE TABLET PO SCH (09:00)
[2018-06-24] MEDS: NYSTATIN CRM 15GM TP SCH ×2 (09:00→20:50)
[2018-06-24] MEDS ORDERED: DEXTROSE 50%, 50ML SYRINGE IVPush PRN (14:00)
[2018-06-24] MEDS ORDERED: DEXTROSE 4 GM TAB.CHEW PO PRN (14:00)
[2018-06-24] MEDS ORDERED: GLUCAGON 1 MG IM PRN (14:00)
[2018-06-24 14:11] LABS: SODIUM,URINE RANDOM 66 mmol/L
[2018-06-24 14:18] LABS: OSMOLALITY,URINE 373 mOsm/kg (500-850)
[2018-06-24] MEDS: INSULIN LISPRO 100 UNITS/ML, PEN SQ-INSULIN SCH ×2 (16:00→20:18)
[2018-06-24 18:11] VITALS: BP 168/89
[2018-06-24 19:10] VITALS: BP 163/66
[2018-06-24] MEDS: SODIUM CHLORIDE FLUSH 10ML SYR IVF SCH (20:07)
[2018-06-24] MEDS: SIMVASTATIN 10 MG TABLET PO SCH (20:08)
[2018-06-24] MEDS: TEMAZEPAM 15 MG CAPSULE PO SCH (20:08)
[2018-06-25] MEDS ORDERED: DIAZEPAM 5 MG TABLET ONE (00:35)
[2018-06-25] MEDS: DIAZEPAM 10 MG TABLET PO PRN (00:39)
[2018-06-25] MEDS: LEVOTHYROXINE 112 MCG TABLET PO SCH (05:04)
[2018-06-25] MEDS: METOPROLOL TARTRATE 25 MG TABLET PO SCH ×2 (05:05→18:19)
[2018-06-25 07:05] LABS: ANION GAP 6 mmol/L (5-15); CALCIUM 8.7 mg/dL (8.5-10.1); CHLORIDE 94 mmol/L (98-107); CREATININE 0.74 mg/dL (0.55-1.02)
[2018-06-25 07:14] VITALS: BP 154/85
[2018-06-25] MEDS: LORATADINE 10 MG TABLET PO SCH (08:00)
[2018-06-25] MEDS: INSULIN LISPRO 100 UNITS/ML, PEN SQ-INSULIN SCH ×4 (08:00→21:00)
[2018-06-25] MEDS: METHYL SALICYLATE/MENTHOL CRM 85GM TP SCH ×2 (09:00→20:21)
[2018-06-25] MEDS: VITAMIN E 400 UNITS CAPSULE PO SCH (09:00)
[2018-06-25] MEDS: NYSTATIN CRM 15GM TP SCH ×2 (09:00→20:31)
[2018-06-25] MEDS: SENNA/DOCUSATE TABLET PO SCH (09:08)
[2018-06-25] MEDS: OXCARBAZEPINE 150 MG TABLET PO SCH ×2 (09:09→20:21)
[2018-06-25] MEDS: LISINOPRIL 10 MG TABLET PO SCH (09:09)
[2018-06-25] MEDS: AMLODIPINE 5 MG TABLET PO SCH (09:10)
[2018-06-25] MEDS: SODIUM CHLORIDE 1 GM TABLET PO SCH ×3 (09:10→20:21)
[2018-06-25] MEDS: RISPERIDONE 1 MG TABLET PO SCH ×2 (09:11→20:20)
[2018-06-25] MEDS: SODIUM CHLORIDE FLUSH 10ML SYR IVF SCH ×2 (09:20→20:32)
[2018-06-25 19:34] VITALS: BP 139/74
[2018-06-25] MEDS: TEMAZEPAM 15 MG CAPSULE PO SCH (20:20)
[2018-06-25] MEDS: SIMVASTATIN 10 MG TABLET PO SCH (20:21)
[2018-06-26] MEDS ORDERED: DIAZEPAM 5 MG TABLET ONE (01:04)
[2018-06-26] MEDS: DIAZEPAM 10 MG TABLET PO PRN (01:16)
[2018-06-26] MEDS: METOPROLOL TARTRATE 25 MG TABLET PO SCH ×2 (05:07→17:55)
[2018-06-26] MEDS: LEVOTHYROXINE 112 MCG TABLET PO SCH (05:07)
[2018-06-26 06:31] LABS: ANION GAP 8 mmol/L (5-15); CALCIUM 9.1 mg/dL (8.5-10.1); CHLORIDE 93 mmol/L (98-107); CHOLESTEROL, TOTAL 161 mg/dL (140-239); CREATININE 0.81 mg/dL (0.55-1.02); TRIGLYCERIDES 265 mg/dL (50-200); VLDL CHOLESTEROL 53 mg/dL (0-25)
[2018-06-26 06:33] LABS: CHOL/HDL RATIO 2.9; HDL CHOL % 34 % (28-40); HDL CHOLESTEROL (DIRECT) 55 mg/dL (40-60); LDL CHOLESTEROL,CALCULATED 53 mg/dL (54-169)
[2018-06-26] MEDS: INSULIN LISPRO 100 UNITS/ML, PEN SQ-INSULIN SCH ×4 (07:00→20:36)
[2018-06-26 07:38] VITALS: BP 153/70
[2018-06-26] MEDS: AMLODIPINE 5 MG TABLET PO SCH (08:59)
[2018-06-26] MEDS: SODIUM CHLORIDE FLUSH 10ML SYR IVF SCH ×2 (09:00→20:35)
[2018-06-26] MEDS: VITAMIN E 400 UNITS CAPSULE PO SCH (09:00)
[2018-06-26] MEDS: NYSTATIN CRM 15GM TP SCH ×2 (09:00→20:30)
[2018-06-26] MEDS: RISPERIDONE 1 MG TABLET PO SCH ×2 (09:00→20:10)
[2018-06-26] MEDS: LISINOPRIL 10 MG TABLET PO SCH (09:00)
[2018-06-26] MEDS: METHYL SALICYLATE/MENTHOL CRM 85GM TP SCH ×2 (09:00→20:30)
[2018-06-26] MEDS: OXCARBAZEPINE 150 MG TABLET PO SCH ×2 (09:01→20:11)
[2018-06-26] MEDS: SENNA/DOCUSATE TABLET PO SCH (09:01)
[2018-06-26] MEDS: SODIUM CHLORIDE 1 GM TABLET PO SCH ×3 (09:01→20:11)
[2018-06-26] MEDS: LORATADINE 10 MG TABLET PO SCH (09:06)
[2018-06-26 17:51] VITALS: BP 160/82
[2018-06-26 19:25] VITALS: BP 133/83
[2018-06-26] MEDS: TEMAZEPAM 15 MG CAPSULE PO SCH (20:10)
[2018-06-26] MEDS: SIMVASTATIN 10 MG TABLET PO SCH (20:11)
[2018-06-27] MEDS: METOPROLOL TARTRATE 25 MG TABLET PO SCH ×2 (05:06→17:33)
[2018-06-27] MEDS: LEVOTHYROXINE 112 MCG TABLET PO SCH (05:07)
[2018-06-27 06:04] LABS: ANION GAP 5 mmol/L (5-15); CALCIUM 8.6 mg/dL (8.5-10.1); CHLORIDE 97 mmol/L (98-107); CREATININE 0.78 mg/dL (0.55-1.02)
[2018-06-27] MEDS: INSULIN LISPRO 100 UNITS/ML, PEN SQ-INSULIN SCH ×4 (07:00→20:34)
[2018-06-27 07:35] VITALS: BP 142/84
[2018-06-27] MEDS: SODIUM CHLORIDE 1 GM TABLET PO SCH ×3 (08:20→20:33)
[2018-06-27] MEDS: LISINOPRIL 10 MG TABLET PO SCH (08:20)
[2018-06-27] MEDS: OXCARBAZEPINE 150 MG TABLET PO SCH ×2 (08:21→20:33)
[2018-06-27] MEDS: RISPERIDONE 1 MG TABLET PO SCH ×2 (08:21→20:33)
[2018-06-27] MEDS: VITAMIN E 400 UNITS CAPSULE PO SCH (08:21)
[2018-06-27] MEDS: METHYL SALICYLATE/MENTHOL CRM 85GM TP SCH ×2 (08:22→20:34)
[2018-06-27] MEDS: NYSTATIN CRM 15GM TP SCH ×2 (08:22→20:34)
[2018-06-27] MEDS: SENNA/DOCUSATE TABLET PO SCH (08:22)
[2018-06-27] MEDS: AMLODIPINE 5 MG TABLET PO SCH (08:22)
[2018-06-27] MEDS: LORATADINE 10 MG TABLET PO SCH (08:22)
[2018-06-27] MEDS: SODIUM CHLORIDE FLUSH 10ML SYR IVF SCH ×2 (09:00→20:34)
[2018-06-27 17:31] VITALS: BP 152/72
[2018-06-27 19:30] VITALS: BP 123/87
[2018-06-27] MEDS: SIMVASTATIN 10 MG TABLET PO SCH (20:33)
[2018-06-27] MEDS: TEMAZEPAM 15 MG CAPSULE PO SCH (20:33)
[2018-06-28] MEDS: ACETAMINOPHEN 325 MG TABLET PO PRN (04:01)
[2018-06-28 05:17] VITALS: BP 148/74
[2018-06-28] MEDS: LEVOTHYROXINE 112 MCG TABLET PO SCH (05:27)
[2018-06-28] MEDS: METOPROLOL TARTRATE 25 MG TABLET PO SCH ×2 (05:27→17:29)
[2018-06-28] MEDS: INSULIN LISPRO 100 UNITS/ML, PEN SQ-INSULIN SCH ×4 (07:00→20:32)
[2018-06-28 07:08] VITALS: BP 159/82
[2018-06-28] MEDS: LISINOPRIL 10 MG TABLET PO SCH (08:50)
[2018-06-28] MEDS: LORATADINE 10 MG TABLET PO SCH (08:50)
[2018-06-28] MEDS: VITAMIN E 400 UNITS CAPSULE PO SCH (08:51)
[2018-06-28] MEDS: SODIUM CHLORIDE 1 GM TABLET PO SCH ×3 (08:51→20:31)
[2018-06-28] MEDS: METHYL SALICYLATE/MENTHOL CRM 85GM TP SCH ×2 (08:52→20:31)
[2018-06-28] MEDS: OXCARBAZEPINE 150 MG TABLET PO SCH ×2 (08:52→20:31)
[2018-06-28] MEDS: AMLODIPINE 5 MG TABLET PO SCH (08:52)
[2018-06-28] MEDS: RISPERIDONE 1 MG TABLET PO SCH ×2 (08:52→20:32)
[2018-06-28] MEDS: SENNA/DOCUSATE TABLET PO SCH (08:55)
[2018-06-28] MEDS: SODIUM CHLORIDE FLUSH 10ML SYR IVF SCH ×2 (09:00→20:32)
[2018-06-28] MEDS: NYSTATIN CRM 15GM TP SCH ×2 (09:00→20:33)
[2018-06-28 19:30] VITALS: BP 133/82
[2018-06-28] MEDS: TEMAZEPAM 15 MG CAPSULE PO SCH (20:31)
[2018-06-28] MEDS: SIMVASTATIN 10 MG TABLET PO SCH (20:32)
[2018-06-29 05:10] VITALS: BP 125/79
[2018-06-29] MEDS: METOPROLOL TARTRATE 25 MG TABLET PO SCH ×2 (05:24→18:00)
[2018-06-29] MEDS: LEVOTHYROXINE 112 MCG TABLET PO SCH (05:24)
[2018-06-29] MEDS: ACETAMINOPHEN 325 MG TABLET PO PRN ×3 (05:24→20:20)
[2018-06-29] MEDS: INSULIN LISPRO 100 UNITS/ML, PEN SQ-INSULIN SCH ×4 (07:00→21:00)
[2018-06-29 07:14] VITALS: BP 156/92
[2018-06-29] MEDS: VITAMIN E 400 UNITS CAPSULE PO SCH (08:35)
[2018-06-29] MEDS: SENNA/DOCUSATE TABLET PO SCH (08:35)
[2018-06-29] MEDS: LORATADINE 10 MG TABLET PO SCH (08:36)
[2018-06-29] MEDS: OXCARBAZEPINE 150 MG TABLET PO SCH ×2 (08:36→20:10)
[2018-06-29] MEDS: SODIUM CHLORIDE 1 GM TABLET PO SCH ×3 (08:36→20:10)
[2018-06-29] MEDS: LISINOPRIL 10 MG TABLET PO SCH (08:37)
[2018-06-29] MEDS: RISPERIDONE 1 MG TABLET PO SCH ×2 (08:37→20:10)
[2018-06-29] MEDS: AMLODIPINE 5 MG TABLET PO SCH (08:37)
[2018-06-29] MEDS: METHYL SALICYLATE/MENTHOL CRM 85GM TP SCH ×2 (08:38→21:00)
[2018-06-29] MEDS: SODIUM CHLORIDE FLUSH 10ML SYR IVF SCH ×2 (08:38→21:00)
[2018-06-29] MEDS: NYSTATIN CRM 15GM TP SCH ×2 (08:38→21:00)
[2018-06-29 19:39] VITALS: BP 120/72
[2018-06-29] MEDS: TEMAZEPAM 15 MG CAPSULE PO SCH (20:09)
[2018-06-29] MEDS: SIMVASTATIN 10 MG TABLET PO SCH (20:10)
[2018-06-30] MEDS: METOPROLOL TARTRATE 25 MG TABLET PO SCH ×2 (05:58→17:35)
[2018-06-30] MEDS: LEVOTHYROXINE 112 MCG TABLET PO SCH (05:59)
[2018-06-30] MEDS: ACETAMINOPHEN 325 MG TABLET PO PRN ×3 (06:04→20:48)
[2018-06-30] MEDS: INSULIN LISPRO 100 UNITS/ML, PEN SQ-INSULIN SCH ×4 (07:00→20:53)
[2018-06-30 07:46] VITALS: BP 138/71
[2018-06-30] MEDS: OXCARBAZEPINE 150 MG TABLET PO SCH ×2 (08:30→20:38)
[2018-06-30] MEDS: LORATADINE 10 MG TABLET PO SCH (08:30)
[2018-06-30] MEDS: SENNA/DOCUSATE TABLET PO SCH (08:30)
[2018-06-30] MEDS: SODIUM CHLORIDE 1 GM TABLET PO SCH ×3 (08:30→20:38)
[2018-06-30] MEDS: VITAMIN E 400 UNITS CAPSULE PO SCH (08:30)
[2018-06-30] MEDS: AMLODIPINE 5 MG TABLET PO SCH (08:30)
[2018-06-30] MEDS: LISINOPRIL 10 MG TABLET PO SCH (08:31)
[2018-06-30] MEDS: SODIUM CHLORIDE FLUSH 10ML SYR IVF SCH ×2 (08:32→20:52)
[2018-06-30] MEDS: RISPERIDONE 1 MG TABLET PO SCH ×2 (08:32→20:38)
[2018-06-30] MEDS: NYSTATIN CRM 15GM TP SCH ×2 (08:33→20:54)
[2018-06-30] MEDS: METHYL SALICYLATE/MENTHOL CRM 85GM TP SCH ×3 (08:33→20:54)
[2018-06-30 17:33] VITALS: BP 154/88
[2018-06-30 19:20] VITALS: BP 150/87
[2018-06-30] MEDS: TEMAZEPAM 15 MG CAPSULE PO SCH (20:37)
[2018-06-30] MEDS: SIMVASTATIN 10 MG TABLET PO SCH (20:38)
[2018-07-01 05:06] VITALS: BP 144/88
[2018-07-01] MEDS: METOPROLOL TARTRATE 25 MG TABLET PO SCH ×2 (05:19→17:26)
[2018-07-01] MEDS: LEVOTHYROXINE 112 MCG TABLET PO SCH (05:20)
[2018-07-01] MEDS: INSULIN LISPRO 100 UNITS/ML, PEN SQ-INSULIN SCH (07:00)
[2018-07-01 07:20] VITALS: BP 148/81
[2018-07-01] MEDS: SODIUM CHLORIDE 1 GM TABLET PO SCH ×3 (08:19→20:11)
[2018-07-01] MEDS: AMLODIPINE 5 MG TABLET PO SCH (08:20)
[2018-07-01] MEDS: LISINOPRIL 10 MG TABLET PO SCH (08:20)
[2018-07-01] MEDS: RISPERIDONE 1 MG TABLET PO SCH ×2 (08:21→20:11)
[2018-07-01] MEDS: VITAMIN E 400 UNITS CAPSULE PO SCH (08:21)
[2018-07-01] MEDS: LORATADINE 10 MG TABLET PO SCH (08:21)
[2018-07-01] MEDS: SENNA/DOCUSATE TABLET PO SCH (08:21)
[2018-07-01] MEDS: OXCARBAZEPINE 150 MG TABLET PO SCH ×2 (08:21→20:09)
[2018-07-01] MEDS: METHYL SALICYLATE/MENTHOL CRM 85GM TP SCH ×2 (08:22→20:11)
[2018-07-01] MEDS: NYSTATIN CRM 15GM TP SCH ×2 (08:22→20:11)
[2018-07-01] MEDS: SODIUM CHLORIDE FLUSH 10ML SYR IVF SCH ×2 (08:22→20:10)
[2018-07-01] MEDS: ACETAMINOPHEN 325 MG TABLET PO PRN ×2 (10:05→20:10)
[2018-07-01] MEDS: DIAZEPAM 10 MG TABLET PO PRN (16:12)
[2018-07-01 17:23] VITALS: BP 118/81
[2018-07-01 19:22] VITALS: BP 123/80
[2018-07-01] MEDS: SIMVASTATIN 10 MG TABLET PO SCH (20:10)
[2018-07-01] MEDS: TEMAZEPAM 15 MG CAPSULE PO SCH (20:10)
[2018-07-02 05:49] VITALS: BP 142/83
[2018-07-02] MEDS: METOPROLOL TARTRATE 25 MG TABLET PO SCH ×2 (06:04→17:56)
[2018-07-02] MEDS: LEVOTHYROXINE 112 MCG TABLET PO SCH (06:04)
[2018-07-02 07:30] VITALS: BP 147/81
[2018-07-02] MEDS: VITAMIN E 400 UNITS CAPSULE PO SCH (08:58)
[2018-07-02] MEDS: RISPERIDONE 1 MG TABLET PO SCH ×2 (08:58→20:33)
[2018-07-02] MEDS: LISINOPRIL 10 MG TABLET PO SCH (08:59)
[2018-07-02] MEDS: AMLODIPINE 5 MG TABLET PO SCH (08:59)
[2018-07-02] MEDS: SODIUM CHLORIDE 1 GM TABLET PO SCH ×3 (09:00→20:32)
[2018-07-02] MEDS: LORATADINE 10 MG TABLET PO SCH (09:00)
[2018-07-02] MEDS: METHYL SALICYLATE/MENTHOL CRM 85GM TP SCH ×2 (09:00→20:34)
[2018-07-02] MEDS: SODIUM CHLORIDE FLUSH 10ML SYR IVF SCH ×2 (09:00→19:26)
[2018-07-02] MEDS: NYSTATIN CRM 15GM TP SCH ×2 (09:00→20:34)
[2018-07-02] MEDS: OXCARBAZEPINE 150 MG TABLET PO SCH ×2 (09:01→20:33)
[2018-07-02] MEDS: SENNA/DOCUSATE TABLET PO SCH (09:01)
[2018-07-02] MEDS ORDERED: DIAZEPAM 5 MG TABLET ONE (18:17)
[2018-07-02] MEDS: DIAZEPAM 10 MG TABLET PO PRN (18:24)
[2018-07-02 19:44] VITALS: BP 149/89
[2018-07-02] MEDS: SIMVASTATIN 10 MG TABLET PO SCH (20:32)
[2018-07-02] MEDS: TEMAZEPAM 15 MG CAPSULE PO SCH (20:33)
[2018-07-03] MEDS: LEVOTHYROXINE 112 MCG TABLET PO SCH (05:35)
[2018-07-03] MEDS: METOPROLOL TARTRATE 25 MG TABLET PO SCH ×2 (05:35→17:20)
[2018-07-03 07:32] VITALS: BP 155/85
[2018-07-03] MEDS: VITAMIN E 400 UNITS CAPSULE PO SCH (08:16)
[2018-07-03] MEDS: SODIUM CHLORIDE 1 GM TABLET PO SCH ×3 (08:17→19:55)
[2018-07-03] MEDS: RISPERIDONE 1 MG TABLET PO SCH ×2 (08:17→19:55)
[2018-07-03] MEDS: LORATADINE 10 MG TABLET PO SCH (08:17)
[2018-07-03] MEDS: OXCARBAZEPINE 150 MG TABLET PO SCH ×2 (08:17→19:55)
[2018-07-03] MEDS: AMLODIPINE 5 MG TABLET PO SCH (08:17)
[2018-07-03] MEDS: LISINOPRIL 10 MG TABLET PO SCH (08:17)
[2018-07-03] MEDS: NYSTATIN CRM 15GM TP SCH ×2 (08:18→19:56)
[2018-07-03] MEDS: SENNA/DOCUSATE TABLET PO SCH (08:18)
[2018-07-03] MEDS: METHYL SALICYLATE/MENTHOL CRM 85GM TP SCH ×2 (08:18→19:56)
[2018-07-03] MEDS: SODIUM CHLORIDE FLUSH 10ML SYR IVF SCH ×2 (09:01→19:56)
[2018-07-03] MEDS: ACETAMINOPHEN 325 MG TABLET PO PRN (14:30)
[2018-07-03] MEDS ORDERED: DIAZEPAM 5 MG TABLET ONE (17:19)
[2018-07-03] MEDS: DIAZEPAM 10 MG TABLET PO PRN (17:21)
[2018-07-03 19:28] VITALS: BP 126/76
[2018-07-03] MEDS: SIMVASTATIN 10 MG TABLET PO SCH (19:55)
[2018-07-03] MEDS: TEMAZEPAM 15 MG CAPSULE PO SCH (19:55)
[2018-07-04 05:58] VITALS: BP 155/82
[2018-07-04] MEDS: METOPROLOL TARTRATE 25 MG TABLET PO SCH ×2 (05:59→18:18)
[2018-07-04] MEDS: LEVOTHYROXINE 112 MCG TABLET PO SCH (05:59)
[2018-07-04 07:41] VITALS: BP 147/66
[2018-07-04] MEDS: SODIUM CHLORIDE FLUSH 10ML SYR IVF SCH ×2 (08:55→20:23)
[2018-07-04] MEDS: SENNA/DOCUSATE TABLET PO SCH (09:00)
[2018-07-04] MEDS: LISINOPRIL 10 MG TABLET PO SCH (09:00)
[2018-07-04] MEDS: METHYL SALICYLATE/MENTHOL CRM 85GM TP SCH ×2 (09:02→20:23)
[2018-07-04] MEDS: LORATADINE 10 MG TABLET PO SCH (09:03)
[2018-07-04] MEDS: VITAMIN E 400 UNITS CAPSULE PO SCH (09:03)
[2018-07-04] MEDS: NYSTATIN CRM 15GM TP SCH ×2 (09:03→20:23)
[2018-07-04] MEDS: AMLODIPINE 5 MG TABLET PO SCH (09:03)
[2018-07-04] MEDS: SODIUM CHLORIDE 1 GM TABLET PO SCH ×3 (09:03→20:23)
[2018-07-04] MEDS: RISPERIDONE 1 MG TABLET PO SCH ×2 (09:04→20:23)
[2018-07-04] MEDS: OXCARBAZEPINE 150 MG TABLET PO SCH ×2 (09:05→20:23)
[2018-07-04] MEDS: ACETAMINOPHEN 325 MG TABLET PO PRN (13:30)
[2018-07-04 18:24] VITALS: BP 165/83
[2018-07-04 19:44] VITALS: BP 135/73
[2018-07-04] MEDS: TEMAZEPAM 15 MG CAPSULE PO SCH (20:22)
[2018-07-04] MEDS: SIMVASTATIN 10 MG TABLET PO SCH (20:23)
[2018-07-05] MEDS: LEVOTHYROXINE 112 MCG TABLET PO SCH (05:47)
[2018-07-05] MEDS: METOPROLOL TARTRATE 25 MG TABLET PO SCH ×2 (05:47→18:03)
[2018-07-05 07:51] VITALS: BP 145/82
[2018-07-05] MEDS: RISPERIDONE 1 MG TABLET PO SCH ×2 (08:28→20:46)
[2018-07-05] MEDS: AMLODIPINE 5 MG TABLET PO SCH (08:28)
[2018-07-05] MEDS: OXCARBAZEPINE 150 MG TABLET PO SCH ×2 (08:28→20:46)
[2018-07-05] MEDS: VITAMIN E 400 UNITS CAPSULE PO SCH (08:28)
[2018-07-05] MEDS: LORATADINE 10 MG TABLET PO SCH (08:28)
[2018-07-05] MEDS: SODIUM CHLORIDE FLUSH 10ML SYR IVF SCH ×2 (08:29→21:00)
[2018-07-05] MEDS: SODIUM CHLORIDE 1 GM TABLET PO SCH ×3 (08:29→20:46)
[2018-07-05] MEDS: LISINOPRIL 10 MG TABLET PO SCH (08:29)
[2018-07-05] MEDS: METHYL SALICYLATE/MENTHOL CRM 85GM TP SCH ×2 (08:30→21:00)
[2018-07-05] MEDS: NYSTATIN CRM 15GM TP SCH ×2 (08:30→21:00)
[2018-07-05] MEDS: SENNA/DOCUSATE TABLET PO SCH (09:15)
[2018-07-05] MEDS ORDERED: DIAZEPAM 5 MG TABLET ONE (09:36)
[2018-07-05] MEDS: DIAZEPAM 10 MG TABLET PO PRN (09:37)
[2018-07-05] MEDS: ACETAMINOPHEN 325 MG TABLET PO PRN (15:57)
[2018-07-05 19:52] VITALS: BP 120/75
[2018-07-05] MEDS: TEMAZEPAM 15 MG CAPSULE PO SCH (20:46)
[2018-07-05] MEDS: SIMVASTATIN 10 MG TABLET PO SCH (20:47)
[2018-07-06] MEDS: METOPROLOL TARTRATE 25 MG TABLET PO SCH ×2 (05:46→17:54)
[2018-07-06] MEDS: LEVOTHYROXINE 112 MCG TABLET PO SCH (05:47)
[2018-07-06] MEDS: ACETAMINOPHEN 325 MG TABLET PO PRN ×2 (05:50→20:32)
[2018-07-06 07:10] VITALS: BP 169/91
[2018-07-06] MEDS: SODIUM CHLORIDE 1 GM TABLET PO SCH ×3 (08:07→20:31)
[2018-07-06] MEDS: LORATADINE 10 MG TABLET PO SCH (08:07)
[2018-07-06] MEDS: SENNA/DOCUSATE TABLET PO SCH (08:07)
[2018-07-06] MEDS: VITAMIN E 400 UNITS CAPSULE PO SCH (08:07)
[2018-07-06] MEDS: OXCARBAZEPINE 150 MG TABLET PO SCH ×2 (08:07→20:32)
[2018-07-06] MEDS: AMLODIPINE 5 MG TABLET PO SCH (08:07)
[2018-07-06] MEDS: LISINOPRIL 10 MG TABLET PO SCH (08:08)
[2018-07-06] MEDS: RISPERIDONE 1 MG TABLET PO SCH ×2 (08:08→20:31)
[2018-07-06] MEDS: SODIUM CHLORIDE FLUSH 10ML SYR IVF SCH (08:09)
[2018-07-06] MEDS: METHYL SALICYLATE/MENTHOL CRM 85GM TP SCH ×2 (08:57→21:00)
[2018-07-06] MEDS: NYSTATIN CRM 15GM TP SCH ×2 (09:00→21:00)
[2018-07-06 17:49] VITALS: BP 159/84
[2018-07-06 19:10] VITALS: BP 148/78
[2018-07-06] MEDS: TEMAZEPAM 15 MG CAPSULE PO SCH (20:31)
[2018-07-06] MEDS: SIMVASTATIN 10 MG TABLET PO SCH (20:32)
[2018-07-07 05:57] VITALS: BP 145/83
[2018-07-07] MEDS: LEVOTHYROXINE 112 MCG TABLET PO SCH (05:57)
[2018-07-07] MEDS: METOPROLOL TARTRATE 25 MG TABLET PO SCH ×2 (05:57→17:18)
[2018-07-07] MEDS: ACETAMINOPHEN 325 MG TABLET PO PRN ×3 (05:58→20:28)
[2018-07-07 07:05] VITALS: BP 152/87
[2018-07-07] MEDS: LISINOPRIL 10 MG TABLET PO SCH (09:00)
[2018-07-07] MEDS: SODIUM CHLORIDE FLUSH 10ML SYR IVF SCH (09:00)
[2018-07-07] MEDS: NYSTATIN CRM 15GM TP SCH ×2 (09:00→21:00)
[2018-07-07] MEDS: SENNA/DOCUSATE TABLET PO SCH (09:00)
[2018-07-07] MEDS ORDERED: DIAZEPAM 5 MG TABLET ONE (09:24)
[2018-07-07] MEDS: LORATADINE 10 MG TABLET PO SCH (09:26)
[2018-07-07] MEDS: AMLODIPINE 5 MG TABLET PO SCH (09:26)
[2018-07-07] MEDS: OXCARBAZEPINE 150 MG TABLET PO SCH ×2 (09:27→20:28)
[2018-07-07] MEDS: SODIUM CHLORIDE 1 GM TABLET PO SCH ×3 (09:28→20:27)
[2018-07-07] MEDS: VITAMIN E 400 UNITS CAPSULE PO SCH (09:28)
[2018-07-07] MEDS: RISPERIDONE 1 MG TABLET PO SCH ×2 (09:28→20:27)
[2018-07-07] MEDS: DIAZEPAM 10 MG TABLET PO PRN (09:33)
[2018-07-07] MEDS: METHYL SALICYLATE/MENTHOL CRM 85GM TP SCH ×2 (09:40→21:00)
[2018-07-07 17:06] VITALS: BP 143/82
[2018-07-07 19:23] VITALS: BP 137/78
[2018-07-07] MEDS: TEMAZEPAM 15 MG CAPSULE PO SCH (20:27)
[2018-07-07] MEDS: SIMVASTATIN 10 MG TABLET PO SCH (20:28)
[2018-07-08] MEDS: METOPROLOL TARTRATE 25 MG TABLET PO SCH ×2 (06:00→17:20)
[2018-07-08] MEDS: LEVOTHYROXINE 112 MCG TABLET PO SCH (06:00)
[2018-07-08] MEDS: ACETAMINOPHEN 325 MG TABLET PO PRN (06:10)
[2018-07-08 07:38] VITALS: BP 145/83
[2018-07-08] MEDS: SODIUM CHLORIDE FLUSH 10ML SYR IVF SCH ×2 (09:00→20:45)
[2018-07-08] MEDS: NYSTATIN CRM 15GM TP SCH ×2 (09:00→20:46)
[2018-07-08] MEDS: LISINOPRIL 10 MG TABLET PO SCH (09:00)
[2018-07-08] MEDS: LORATADINE 10 MG TABLET PO SCH (09:11)
[2018-07-08] MEDS: SENNA/DOCUSATE TABLET PO SCH (09:11)
[2018-07-08] MEDS: AMLODIPINE 5 MG TABLET PO SCH (09:11)
[2018-07-08] MEDS: RISPERIDONE 1 MG TABLET PO SCH ×2 (09:11→20:44)
[2018-07-08] MEDS: OXCARBAZEPINE 150 MG TABLET PO SCH ×2 (09:11→20:44)
[2018-07-08] MEDS: VITAMIN E 400 UNITS CAPSULE PO SCH (09:11)
[2018-07-08] MEDS: SODIUM CHLORIDE 1 GM TABLET PO SCH ×3 (09:12→20:43)
[2018-07-08] MEDS: METHYL SALICYLATE/MENTHOL CRM 85GM TP SCH ×2 (09:33→20:46)
[2018-07-08] MEDS ORDERED: DIAZEPAM 5 MG TABLET ONE (15:17)
[2018-07-08] MEDS: DIAZEPAM 10 MG TABLET PO PRN (16:13)
[2018-07-08 16:28] VITALS: BP 147/96
[2018-07-08 19:36] VITALS: BP 138/76
[2018-07-08] MEDS: TEMAZEPAM 15 MG CAPSULE PO SCH (20:44)
[2018-07-08] MEDS: SIMVASTATIN 10 MG TABLET PO SCH (20:44)
[2018-07-09] MEDS: ACETAMINOPHEN 325 MG TABLET PO PRN ×3 (01:06→20:41)
[2018-07-09 05:46] VITALS: BP 156/80
[2018-07-09] MEDS: METOPROLOL TARTRATE 25 MG TABLET PO SCH ×2 (05:51→18:08)
[2018-07-09] MEDS: LEVOTHYROXINE 112 MCG TABLET PO SCH (05:51)
[2018-07-09 07:42] VITALS: BP 139/98
[2018-07-09] MEDS: SODIUM CHLORIDE FLUSH 10ML SYR IVF SCH ×2 (08:26→20:34)
[2018-07-09] MEDS: LORATADINE 10 MG TABLET PO SCH (08:32)
[2018-07-09] MEDS: RISPERIDONE 1 MG TABLET PO SCH ×2 (08:33→20:33)
[2018-07-09] MEDS: AMLODIPINE 5 MG TABLET PO SCH (08:33)
[2018-07-09] MEDS: LISINOPRIL 10 MG TABLET PO SCH (08:33)
[2018-07-09] MEDS: METHYL SALICYLATE/MENTHOL CRM 85GM TP SCH ×2 (08:34→20:34)
[2018-07-09] MEDS: SODIUM CHLORIDE 1 GM TABLET PO SCH ×3 (08:34→20:33)
[2018-07-09] MEDS: SENNA/DOCUSATE TABLET PO SCH (08:34)
[2018-07-09] MEDS: OXCARBAZEPINE 150 MG TABLET PO SCH ×2 (08:34→20:33)
[2018-07-09] MEDS: VITAMIN E 400 UNITS CAPSULE PO SCH (08:34)
[2018-07-09] MEDS: NYSTATIN CRM 15GM TP SCH ×2 (08:34→20:34)
[2018-07-09 17:55] VITALS: BP 138/82
[2018-07-09 19:32] VITALS: BP 172/92
[2018-07-09] MEDS: TEMAZEPAM 15 MG CAPSULE PO SCH (20:33)
[2018-07-09] MEDS: SIMVASTATIN 10 MG TABLET PO SCH (20:33)
[2018-07-10 05:02] VITALS: BP 138/80
[2018-07-10] MEDS: LEVOTHYROXINE 112 MCG TABLET PO SCH (05:08)
[2018-07-10] MEDS: METOPROLOL TARTRATE 25 MG TABLET PO SCH ×2 (05:08→18:22)
[2018-07-10] MEDS: ACETAMINOPHEN 325 MG TABLET PO PRN ×3 (05:09→20:16)
[2018-07-10 07:45] VITALS: BP 145/83
[2018-07-10] MEDS ORDERED: DIAZEPAM 5 MG TABLET ONE ×2 (08:16→15:20)
[2018-07-10] MEDS: SENNA/DOCUSATE TABLET PO SCH (08:17)
[2018-07-10] MEDS: LISINOPRIL 10 MG TABLET PO SCH (08:18)
[2018-07-10] MEDS: RISPERIDONE 1 MG TABLET PO SCH ×2 (08:18→20:09)
[2018-07-10] MEDS: SODIUM CHLORIDE 1 GM TABLET PO SCH ×3 (08:18→20:08)
[2018-07-10] MEDS: OXCARBAZEPINE 150 MG TABLET PO SCH ×2 (08:18→20:09)
[2018-07-10] MEDS: VITAMIN E 400 UNITS CAPSULE PO SCH (08:18)
[2018-07-10] MEDS: AMLODIPINE 5 MG TABLET PO SCH (08:18)
[2018-07-10] MEDS: DIAZEPAM 10 MG TABLET PO PRN ×2 (08:20→15:29)
[2018-07-10] MEDS: LORATADINE 10 MG TABLET PO SCH (08:21)
[2018-07-10] MEDS: SODIUM CHLORIDE FLUSH 10ML SYR IVF SCH ×2 (08:23→21:00)
[2018-07-10] MEDS: METHYL SALICYLATE/MENTHOL CRM 85GM TP SCH ×2 (09:31→21:00)
[2018-07-10] MEDS: NYSTATIN CRM 15GM TP SCH ×2 (09:31→21:00)
[2018-07-10 18:23] VITALS: BP 131/83
[2018-07-10 19:51] VITALS: BP 146/81
[2018-07-10] MEDS: SIMVASTATIN 10 MG TABLET PO SCH (20:08)
[2018-07-10] MEDS: TEMAZEPAM 15 MG CAPSULE PO SCH (20:09)
[2018-07-11 06:09] VITALS: BP 160/85
[2018-07-11] MEDS: LEVOTHYROXINE 112 MCG TABLET PO SCH (06:16)
[2018-07-11] MEDS: METOPROLOL TARTRATE 25 MG TABLET PO SCH ×2 (06:16→17:40)
[2018-07-11] MEDS: ACETAMINOPHEN 325 MG TABLET PO PRN ×2 (06:17→20:40)
[2018-07-11 07:10] VITALS: BP 145/76
[2018-07-11] MEDS: SENNA/DOCUSATE TABLET PO SCH (08:43)
[2018-07-11] MEDS: SODIUM CHLORIDE 1 GM TABLET PO SCH ×3 (08:43→20:39)
[2018-07-11] MEDS: VITAMIN E 400 UNITS CAPSULE PO SCH (08:43)
[2018-07-11] MEDS: LISINOPRIL 10 MG TABLET PO SCH (08:43)
[2018-07-11] MEDS: LORATADINE 10 MG TABLET PO SCH (08:44)
[2018-07-11] MEDS: OXCARBAZEPINE 150 MG TABLET PO SCH ×2 (08:44→20:40)
[2018-07-11] MEDS: NYSTATIN CRM 15GM TP SCH ×2 (08:44→20:41)
[2018-07-11] MEDS: RISPERIDONE 1 MG TABLET PO SCH ×2 (08:44→20:39)
[2018-07-11] MEDS: AMLODIPINE 5 MG TABLET PO SCH (08:44)
[2018-07-11] MEDS: METHYL SALICYLATE/MENTHOL CRM 85GM TP SCH ×2 (08:44→20:40)
[2018-07-11] MEDS: SODIUM CHLORIDE FLUSH 10ML SYR IVF SCH ×2 (08:45→20:38)
[2018-07-11 19:35] VITALS: BP 138/64
[2018-07-11] MEDS: SIMVASTATIN 10 MG TABLET PO SCH (20:39)
[2018-07-11] MEDS: TEMAZEPAM 15 MG CAPSULE PO SCH (20:39)
[2018-07-12 05:00] VITALS: BP 138/75
[2018-07-12] MEDS: METOPROLOL TARTRATE 25 MG TABLET PO SCH ×2 (05:18→18:16)
[2018-07-12] MEDS: LEVOTHYROXINE 112 MCG TABLET PO SCH (05:18)
[2018-07-12 07:04] VITALS: BP 166/81
[2018-07-12] MEDS: OXCARBAZEPINE 150 MG TABLET PO SCH ×2 (08:42→20:38)
[2018-07-12] MEDS: VITAMIN E 400 UNITS CAPSULE PO SCH (08:42)
[2018-07-12] MEDS: SODIUM CHLORIDE 1 GM TABLET PO SCH ×3 (08:42→20:38)
[2018-07-12] MEDS: METHYL SALICYLATE/MENTHOL CRM 85GM TP SCH ×2 (08:43→20:41)
[2018-07-12] MEDS: AMLODIPINE 5 MG TABLET PO SCH (08:43)
[2018-07-12] MEDS: LORATADINE 10 MG TABLET PO SCH (08:43)
[2018-07-12] MEDS: NYSTATIN CRM 15GM TP SCH ×2 (08:43→20:41)
[2018-07-12] MEDS: LISINOPRIL 10 MG TABLET PO SCH (08:43)
[2018-07-12] MEDS: RISPERIDONE 1 MG TABLET PO SCH ×2 (08:43→20:39)
[2018-07-12] MEDS: SODIUM CHLORIDE FLUSH 10ML SYR IVF SCH ×2 (08:44→20:40)
[2018-07-12] MEDS: SENNA/DOCUSATE TABLET PO SCH (08:52)
[2018-07-12] MEDS: ACETAMINOPHEN 325 MG TABLET PO PRN (08:53)
[2018-07-12 18:16] VITALS: BP 124/73
[2018-07-12 19:51] VITALS: BP 129/77
[2018-07-12] MEDS: TEMAZEPAM 15 MG CAPSULE PO SCH (20:37)
[2018-07-12] MEDS: SIMVASTATIN 10 MG TABLET PO SCH (20:38)
[2018-07-13] MEDS: METOPROLOL TARTRATE 25 MG TABLET PO SCH ×2 (05:48→18:03)
[2018-07-13] MEDS: LEVOTHYROXINE 112 MCG TABLET PO SCH (05:48)
[2018-07-13] MEDS: ACETAMINOPHEN 325 MG TABLET PO PRN ×3 (05:48→20:07)
[2018-07-13 06:57] VITALS: BP 160/73
[2018-07-13] MEDS: VITAMIN E 400 UNITS CAPSULE PO SCH (08:33)
[2018-07-13] MEDS: OXCARBAZEPINE 150 MG TABLET PO SCH ×2 (08:34→20:08)
[2018-07-13] MEDS: AMLODIPINE 5 MG TABLET PO SCH (08:34)
[2018-07-13] MEDS: LORATADINE 10 MG TABLET PO SCH (08:34)
[2018-07-13] MEDS: SODIUM CHLORIDE 1 GM TABLET PO SCH ×3 (08:34→20:07)
[2018-07-13] MEDS: LISINOPRIL 10 MG TABLET PO SCH (08:35)
[2018-07-13] MEDS: SODIUM CHLORIDE FLUSH 10ML SYR IVF SCH ×2 (08:35→20:08)
[2018-07-13] MEDS: SENNA/DOCUSATE TABLET PO SCH (08:35)
[2018-07-13] MEDS: RISPERIDONE 1 MG TABLET PO SCH ×2 (08:35→20:08)
[2018-07-13] MEDS: METHYL SALICYLATE/MENTHOL CRM 85GM TP SCH ×2 (08:35→20:12)
[2018-07-13] MEDS: NYSTATIN CRM 15GM TP SCH ×2 (08:36→20:12)
[2018-07-13] MEDS: SIMVASTATIN 10 MG TABLET PO SCH (20:08)
[2018-07-13] MEDS: TEMAZEPAM 15 MG CAPSULE PO SCH (20:08)
[2018-07-13 20:09] VITALS: BP 141/89
[2018-07-14] MEDS: LEVOTHYROXINE 112 MCG TABLET PO SCH (05:58)
[2018-07-14] MEDS: ACETAMINOPHEN 325 MG TABLET PO PRN ×2 (05:58→20:50)
[2018-07-14] MEDS: METOPROLOL TARTRATE 25 MG TABLET PO SCH ×2 (05:59→16:49)
[2018-07-14 07:08] VITALS: BP 124/70
[2018-07-14] MEDS: AMLODIPINE 5 MG TABLET PO SCH (08:24)
[2018-07-14] MEDS: SENNA/DOCUSATE TABLET PO SCH (08:24)
[2018-07-14] MEDS: OXCARBAZEPINE 150 MG TABLET PO SCH ×2 (08:25→20:51)
[2018-07-14] MEDS: LORATADINE 10 MG TABLET PO SCH (08:25)
[2018-07-14] MEDS: LISINOPRIL 10 MG TABLET PO SCH (08:26)
[2018-07-14] MEDS: RISPERIDONE 1 MG TABLET PO SCH ×2 (08:26→20:50)
[2018-07-14] MEDS: VITAMIN E 400 UNITS CAPSULE PO SCH (08:26)
[2018-07-14] MEDS: SODIUM CHLORIDE 1 GM TABLET PO SCH ×3 (08:26→20:51)
[2018-07-14] MEDS: SODIUM CHLORIDE FLUSH 10ML SYR IVF SCH ×2 (08:29→20:54)
[2018-07-14] MEDS: METHYL SALICYLATE/MENTHOL CRM 85GM TP SCH ×2 (08:30→20:53)
[2018-07-14] MEDS: NYSTATIN CRM 15GM TP SCH ×2 (08:30→20:53)
[2018-07-14 19:17] VITALS: BP 143/84
[2018-07-14] MEDS: TEMAZEPAM 15 MG CAPSULE PO SCH (20:50)
[2018-07-14] MEDS: SIMVASTATIN 10 MG TABLET PO SCH (20:50)
[2018-07-15 04:53] VITALS: BP 136/61
[2018-07-15] MEDS: METOPROLOL TARTRATE 25 MG TABLET PO SCH ×3 (05:09→17:26)
[2018-07-15] MEDS: LEVOTHYROXINE 112 MCG TABLET PO SCH (05:09)
[2018-07-15] MEDS: ACETAMINOPHEN 325 MG TABLET PO PRN ×3 (05:09→20:22)
[2018-07-15 07:33] VITALS: BP 166/85
[2018-07-15] MEDS: METHYL SALICYLATE/MENTHOL CRM 85GM TP SCH ×2 (08:37→20:23)
[2018-07-15] MEDS: OXCARBAZEPINE 150 MG TABLET PO SCH ×2 (08:37→20:21)
[2018-07-15] MEDS: NYSTATIN CRM 15GM TP SCH ×2 (08:37→20:23)
[2018-07-15] MEDS: SENNA/DOCUSATE TABLET PO SCH (08:38)
[2018-07-15] MEDS: LORATADINE 10 MG TABLET PO SCH (08:38)
[2018-07-15] MEDS: SODIUM CHLORIDE 1 GM TABLET PO SCH ×3 (08:38→20:21)
[2018-07-15] MEDS: AMLODIPINE 5 MG TABLET PO SCH (08:38)
[2018-07-15] MEDS: LISINOPRIL 10 MG TABLET PO SCH (08:39)
[2018-07-15] MEDS: SODIUM CHLORIDE FLUSH 10ML SYR IVF SCH ×2 (08:39→20:23)
[2018-07-15] MEDS: VITAMIN E 400 UNITS CAPSULE PO SCH (08:39)
[2018-07-15] MEDS: RISPERIDONE 1 MG TABLET PO SCH ×2 (08:39→20:22)
[2018-07-15 19:24] VITALS: BP 151/84
[2018-07-15] MEDS: SIMVASTATIN 10 MG TABLET PO SCH (20:22)
[2018-07-15] MEDS: TEMAZEPAM 15 MG CAPSULE PO SCH (20:22)
[2018-07-16 05:37] VITALS: BP 154/69
[2018-07-16] MEDS: LEVOTHYROXINE 112 MCG TABLET PO SCH (05:51)
[2018-07-16] MEDS: METOPROLOL TARTRATE 25 MG TABLET PO SCH ×2 (05:52→18:18)
[2018-07-16] MEDS: ACETAMINOPHEN 325 MG TABLET PO PRN ×3 (05:52→20:46)
[2018-07-16 07:10] VITALS: BP 167/83
[2018-07-16] MEDS: SENNA/DOCUSATE TABLET PO SCH (07:55)
[2018-07-16] MEDS: AMLODIPINE 5 MG TABLET PO SCH (08:19)
[2018-07-16] MEDS: RISPERIDONE 1 MG TABLET PO SCH ×2 (08:19→20:46)
[2018-07-16] MEDS: OXCARBAZEPINE 150 MG TABLET PO SCH ×2 (08:19→20:47)
[2018-07-16] MEDS: LORATADINE 10 MG TABLET PO SCH (08:19)
[2018-07-16] MEDS: LISINOPRIL 10 MG TABLET PO SCH (08:19)
[2018-07-16] MEDS: SODIUM CHLORIDE 1 GM TABLET PO SCH ×3 (08:19→20:47)
[2018-07-16] MEDS: VITAMIN E 400 UNITS CAPSULE PO SCH (08:20)
[2018-07-16] MEDS: METHYL SALICYLATE/MENTHOL CRM 85GM TP SCH ×2 (08:20→20:47)
[2018-07-16] MEDS: NYSTATIN CRM 15GM TP SCH ×2 (08:20→20:47)
[2018-07-16] MEDS ORDERED: DIAZEPAM 5 MG TABLET ONE (09:17)
[2018-07-16] MEDS: DIAZEPAM 10 MG TABLET PO PRN (09:22)
[2018-07-16 18:18] VITALS: BP 148/86
[2018-07-16 20:30] VITALS: BP 135/98
[2018-07-16] MEDS: SIMVASTATIN 10 MG TABLET PO SCH (20:46)
[2018-07-16] MEDS: TEMAZEPAM 15 MG CAPSULE PO SCH (20:46)
[2018-07-17] MEDS: ACETAMINOPHEN 325 MG TABLET PO PRN ×2 (04:57→20:22)
[2018-07-17 05:35] VITALS: BP 154/86
[2018-07-17] MEDS: LEVOTHYROXINE 112 MCG TABLET PO SCH (05:36)
[2018-07-17] MEDS: METOPROLOL TARTRATE 25 MG TABLET PO SCH ×2 (05:36→18:00)
[2018-07-17 07:41] VITALS: BP 162/77
[2018-07-17] MEDS: RISPERIDONE 1 MG TABLET PO SCH ×2 (08:39→20:22)
[2018-07-17] MEDS: SODIUM CHLORIDE 1 GM TABLET PO SCH ×3 (08:39→20:22)
[2018-07-17] MEDS: LORATADINE 10 MG TABLET PO SCH (08:39)
[2018-07-17] MEDS: AMLODIPINE 5 MG TABLET PO SCH (08:39)
[2018-07-17] MEDS: SENNA/DOCUSATE TABLET PO SCH (08:39)
[2018-07-17] MEDS: OXCARBAZEPINE 150 MG TABLET PO SCH ×2 (08:40→20:21)
[2018-07-17] MEDS: LISINOPRIL 10 MG TABLET PO SCH (08:40)
[2018-07-17] MEDS: METHYL SALICYLATE/MENTHOL CRM 85GM TP SCH ×2 (08:41→20:22)
[2018-07-17] MEDS: VITAMIN E 400 UNITS CAPSULE PO SCH (08:41)
[2018-07-17] MEDS: NYSTATIN CRM 15GM TP SCH ×2 (08:42→20:24)
[2018-07-17 19:20] VITALS: BP 149/80
[2018-07-17] MEDS: TEMAZEPAM 15 MG CAPSULE PO SCH (20:21)
[2018-07-17] MEDS: SIMVASTATIN 10 MG TABLET PO SCH (20:26)
[2018-07-18 05:35] VITALS: BP 137/80
[2018-07-18] MEDS: METOPROLOL TARTRATE 25 MG TABLET PO SCH ×2 (05:36→17:37)
[2018-07-18] MEDS: LEVOTHYROXINE 112 MCG TABLET PO SCH (05:36)
[2018-07-18] MEDS: ACETAMINOPHEN 325 MG TABLET PO PRN ×3 (05:36→20:02)
[2018-07-18 07:50] VITALS: BP 164/79
[2018-07-18] MEDS: VITAMIN E 400 UNITS CAPSULE PO SCH (08:23)
[2018-07-18] MEDS: SODIUM CHLORIDE 1 GM TABLET PO SCH ×3 (08:24→20:02)
[2018-07-18] MEDS: METHYL SALICYLATE/MENTHOL CRM 85GM TP SCH ×2 (08:24→20:03)
[2018-07-18] MEDS: LORATADINE 10 MG TABLET PO SCH (08:24)
[2018-07-18] MEDS: NYSTATIN CRM 15GM TP SCH ×2 (08:24→20:03)
[2018-07-18] MEDS: SENNA/DOCUSATE TABLET PO SCH (08:24)
[2018-07-18] MEDS: RISPERIDONE 1 MG TABLET PO SCH ×2 (08:24→20:02)
[2018-07-18] MEDS: OXCARBAZEPINE 150 MG TABLET PO SCH ×2 (08:24→20:02)
[2018-07-18] MEDS: AMLODIPINE 5 MG TABLET PO SCH (08:24)
[2018-07-18] MEDS: LISINOPRIL 10 MG TABLET PO SCH (08:24)
[2018-07-18 19:17] VITALS: BP 138/83
[2018-07-18] MEDS: SIMVASTATIN 10 MG TABLET PO SCH (20:02)
[2018-07-18] MEDS: TEMAZEPAM 15 MG CAPSULE PO SCH (20:02)
[2018-07-19 05:54] VITALS: BP 141/71
[2018-07-19] MEDS: METOPROLOL TARTRATE 25 MG TABLET PO SCH ×2 (05:54→16:54)
[2018-07-19] MEDS: LEVOTHYROXINE 112 MCG TABLET PO SCH (05:54)
[2018-07-19 07:45] VITALS: BP 164/81
[2018-07-19] MEDS: METHYL SALICYLATE/MENTHOL CRM 85GM TP SCH ×2 (08:44→21:00)
[2018-07-19] MEDS: LISINOPRIL 10 MG TABLET PO SCH (08:44)
[2018-07-19] MEDS: SENNA/DOCUSATE TABLET PO SCH (08:44)
[2018-07-19] MEDS: ACETAMINOPHEN 325 MG TABLET PO PRN ×2 (08:44→20:54)
[2018-07-19] MEDS: OXCARBAZEPINE 150 MG TABLET PO SCH ×2 (08:45→21:36)
[2018-07-19] MEDS: VITAMIN E 400 UNITS CAPSULE PO SCH (08:45)
[2018-07-19] MEDS: SODIUM CHLORIDE 1 GM TABLET PO SCH ×3 (08:45→20:56)
[2018-07-19] MEDS: LORATADINE 10 MG TABLET PO SCH (08:45)
[2018-07-19] MEDS: RISPERIDONE 1 MG TABLET PO SCH ×2 (08:45→21:36)
[2018-07-19] MEDS: NYSTATIN CRM 15GM TP SCH ×2 (08:45→20:56)
[2018-07-19] MEDS: AMLODIPINE 5 MG TABLET PO SCH (08:45)
[2018-07-19 16:55] VITALS: BP 152/101
[2018-07-19 19:26] VITALS: BP 170/80
[2018-07-19] MEDS: SIMVASTATIN 10 MG TABLET PO SCH (20:55)
[2018-07-19] MEDS: TEMAZEPAM 15 MG CAPSULE PO SCH (21:36)
[2018-07-20 04:51] VITALS: BP 166/79
[2018-07-20] MEDS: METOPROLOL TARTRATE 25 MG TABLET PO SCH ×3 (04:52→17:32)
[2018-07-20] MEDS: LEVOTHYROXINE 112 MCG TABLET PO SCH ×2 (04:52→05:00)
[2018-07-20 07:58] VITALS: BP_SYST 112; BP_SYST 165; BP_DIAS 73; BP_DIAS 91
[2018-07-20] MEDS: AMLODIPINE 5 MG TABLET PO SCH (08:51)
[2018-07-20] MEDS: SODIUM CHLORIDE 1 GM TABLET PO SCH ×3 (08:51→21:20)
[2018-07-20] MEDS: SENNA/DOCUSATE TABLET PO SCH (08:51)
[2018-07-20] MEDS: LORATADINE 10 MG TABLET PO SCH (08:51)
[2018-07-20] MEDS: LISINOPRIL 10 MG TABLET PO SCH (08:51)
[2018-07-20] MEDS: OXCARBAZEPINE 150 MG TABLET PO SCH ×2 (08:51→21:19)
[2018-07-20] MEDS: RISPERIDONE 1 MG TABLET PO SCH ×2 (08:52→21:19)
[2018-07-20] MEDS: VITAMIN E 400 UNITS CAPSULE PO SCH (08:52)
[2018-07-20] MEDS: NYSTATIN CRM 15GM TP SCH ×3 (08:53→21:20)
[2018-07-20] MEDS: METHYL SALICYLATE/MENTHOL CRM 85GM TP SCH ×3 (08:53→21:21)
[2018-07-20] MEDS: ACETAMINOPHEN 325 MG TABLET PO PRN ×2 (08:55→21:29)
[2018-07-20 17:32] VITALS: BP 148/92
[2018-07-20 19:41] VITALS: BP 147/82
[2018-07-20] MEDS: SIMVASTATIN 10 MG TABLET PO SCH (21:19)
[2018-07-20] MEDS: TEMAZEPAM 15 MG CAPSULE PO SCH (21:19)
[2018-07-21 05:15] VITALS: BP 129/89
[2018-07-21] MEDS: METOPROLOL TARTRATE 25 MG TABLET PO SCH ×2 (05:35→17:27)
[2018-07-21] MEDS: LEVOTHYROXINE 112 MCG TABLET PO SCH (05:35)
[2018-07-21] MEDS: ACETAMINOPHEN 325 MG TABLET PO PRN ×2 (05:46→20:28)
[2018-07-21 07:21] VITALS: BP 150/78
[2018-07-21] MEDS: SODIUM CHLORIDE 1 GM TABLET PO SCH ×3 (08:14→20:27)
[2018-07-21] MEDS: SENNA/DOCUSATE TABLET PO SCH (08:14)
[2018-07-21] MEDS: LISINOPRIL 10 MG TABLET PO SCH (08:14)
[2018-07-21] MEDS: AMLODIPINE 5 MG TABLET PO SCH (08:15)
[2018-07-21] MEDS: VITAMIN E 400 UNITS CAPSULE PO SCH (08:15)
[2018-07-21] MEDS: RISPERIDONE 1 MG TABLET PO SCH ×2 (08:15→20:28)
[2018-07-21] MEDS: OXCARBAZEPINE 150 MG TABLET PO SCH ×2 (08:15→20:27)
[2018-07-21] MEDS: LORATADINE 10 MG TABLET PO SCH (08:19)
[2018-07-21] MEDS: NYSTATIN CRM 15GM TP SCH ×2 (09:00→20:28)
[2018-07-21] MEDS: METHYL SALICYLATE/MENTHOL CRM 85GM TP SCH ×2 (09:00→20:28)
[2018-07-21 19:26] VITALS: BP 162/82
[2018-07-21] MEDS: SIMVASTATIN 10 MG TABLET PO SCH (20:27)
[2018-07-21] MEDS: TEMAZEPAM 15 MG CAPSULE PO SCH (20:27)
[2018-07-22 05:35] VITALS: BP 161/84
[2018-07-22] MEDS: LEVOTHYROXINE 112 MCG TABLET PO SCH (05:38)
[2018-07-22] MEDS: ACETAMINOPHEN 325 MG TABLET PO PRN (05:38)
[2018-07-22] MEDS: METOPROLOL TARTRATE 25 MG TABLET PO SCH ×2 (05:38→17:39)
[2018-07-22 07:16] VITALS: BP 164/95
[2018-07-22] MEDS: NYSTATIN CRM 15GM TP SCH ×2 (08:18→21:00)
[2018-07-22] MEDS: AMLODIPINE 5 MG TABLET PO SCH (08:42)
[2018-07-22] MEDS: LORATADINE 10 MG TABLET PO SCH (08:42)
[2018-07-22] MEDS: RISPERIDONE 1 MG TABLET PO SCH ×2 (08:43→20:47)
[2018-07-22] MEDS: LISINOPRIL 10 MG TABLET PO SCH (08:43)
[2018-07-22] MEDS: METHYL SALICYLATE/MENTHOL CRM 85GM TP SCH ×2 (08:44→20:48)
[2018-07-22] MEDS: SODIUM CHLORIDE 1 GM TABLET PO SCH ×3 (08:44→20:47)
[2018-07-22] MEDS: VITAMIN E 400 UNITS CAPSULE PO SCH (08:44)
[2018-07-22] MEDS: OXCARBAZEPINE 150 MG TABLET PO SCH ×2 (08:44→20:48)
[2018-07-22] MEDS: SENNA/DOCUSATE TABLET PO SCH (08:44)
[2018-07-22 17:34] VITALS: BP 157/94
[2018-07-22 19:49] VITALS: BP 141/81
[2018-07-22] MEDS: TEMAZEPAM 15 MG CAPSULE PO SCH (20:47)
[2018-07-22] MEDS: SIMVASTATIN 10 MG TABLET PO SCH (20:48)
[2018-07-23] MEDS: METOPROLOL TARTRATE 25 MG TABLET PO SCH ×2 (05:47→17:02)
[2018-07-23] MEDS: LEVOTHYROXINE 112 MCG TABLET PO SCH (05:48)
[2018-07-23 07:41] VITALS: BP 122/69
[2018-07-23] MEDS ORDERED: DIAZEPAM 5 MG TABLET ONE (10:11)
[2018-07-23] MEDS: OXCARBAZEPINE 150 MG TABLET PO SCH ×2 (10:12→20:18)
[2018-07-23] MEDS: METHYL SALICYLATE/MENTHOL CRM 85GM TP SCH ×2 (10:12→21:21)
[2018-07-23] MEDS: SENNA/DOCUSATE TABLET PO SCH (10:13)
[2018-07-23] MEDS: SODIUM CHLORIDE 1 GM TABLET PO SCH ×3 (10:13→20:18)
[2018-07-23] MEDS: LISINOPRIL 10 MG TABLET PO SCH (10:13)
[2018-07-23] MEDS: LORATADINE 10 MG TABLET PO SCH (10:13)
[2018-07-23] MEDS: RISPERIDONE 1 MG TABLET PO SCH ×2 (10:13→20:19)
[2018-07-23] MEDS: VITAMIN E 400 UNITS CAPSULE PO SCH (10:14)
[2018-07-23] MEDS: NYSTATIN CRM 15GM TP SCH ×2 (10:14→20:22)
[2018-07-23] MEDS: DIAZEPAM 10 MG TABLET PO PRN (10:14)
[2018-07-23] MEDS: AMLODIPINE 5 MG TABLET PO SCH (10:14)
[2018-07-23] MEDS: ACETAMINOPHEN 325 MG TABLET PO PRN ×2 (15:12→20:19)
[2018-07-23 16:56] VITALS: BP 128/78
[2018-07-23 20:00] VITALS: BP 103/67
[2018-07-23] MEDS: TEMAZEPAM 15 MG CAPSULE PO SCH (20:18)
[2018-07-23] MEDS: SIMVASTATIN 10 MG TABLET PO SCH (20:18)
[2018-07-24 05:41] VITALS: BP 148/75
[2018-07-24] MEDS: LEVOTHYROXINE 112 MCG TABLET PO SCH (05:45)
[2018-07-24] MEDS: ACETAMINOPHEN 325 MG TABLET PO PRN ×3 (05:45→20:34)
[2018-07-24] MEDS: METOPROLOL TARTRATE 25 MG TABLET PO SCH ×2 (05:45→17:21)
[2018-07-24 07:57] VITALS: BP 186/84
[2018-07-24] MEDS ORDERED: DIAZEPAM 5 MG TABLET ONE ×2 (08:02→08:13)
[2018-07-24] MEDS: LORATADINE 10 MG TABLET PO SCH (08:10)
[2018-07-24] MEDS: AMLODIPINE 5 MG TABLET PO SCH (08:10)
[2018-07-24] MEDS: RISPERIDONE 1 MG TABLET PO SCH ×2 (08:10→20:34)
[2018-07-24] MEDS: LISINOPRIL 10 MG TABLET PO SCH (08:10)
[2018-07-24] MEDS: VITAMIN E 400 UNITS CAPSULE PO SCH (08:10)
[2018-07-24] MEDS: OXCARBAZEPINE 150 MG TABLET PO SCH ×2 (08:10→20:33)
[2018-07-24] MEDS: DIAZEPAM 10 MG TABLET PO PRN (08:14)
[2018-07-24] MEDS: SENNA/DOCUSATE TABLET PO SCH (08:56)
[2018-07-24] MEDS: SODIUM CHLORIDE 1 GM TABLET PO SCH ×3 (08:56→20:33)
[2018-07-24] MEDS: METHYL SALICYLATE/MENTHOL CRM 85GM TP SCH ×2 (09:00→20:35)
[2018-07-24] MEDS: NYSTATIN CRM 15GM TP SCH ×2 (09:18→20:34)
[2018-07-24 17:19] VITALS: BP 158/84
[2018-07-24 19:05] VITALS: BP 163/82
[2018-07-24] MEDS: TEMAZEPAM 15 MG CAPSULE PO SCH (20:33)
[2018-07-24] MEDS: SIMVASTATIN 10 MG TABLET PO SCH (20:34)
[2018-07-24 21:36] VITALS: BP 131/73
[2018-07-25 05:48] VITALS: BP 144/81
[2018-07-25] MEDS: LEVOTHYROXINE 112 MCG TABLET PO SCH (05:51)
[2018-07-25] MEDS: ACETAMINOPHEN 325 MG TABLET PO PRN ×2 (05:51→21:07)
[2018-07-25] MEDS: METOPROLOL TARTRATE 25 MG TABLET PO SCH ×2 (05:52→17:08)
[2018-07-25 07:49] VITALS: BP 168/83
[2018-07-25] MEDS: AMLODIPINE 5 MG TABLET PO SCH (08:04)
[2018-07-25] MEDS: RISPERIDONE 1 MG TABLET PO SCH ×2 (08:04→21:07)
[2018-07-25] MEDS: OXCARBAZEPINE 150 MG TABLET PO SCH ×2 (08:04→21:07)
[2018-07-25] MEDS: LISINOPRIL 10 MG TABLET PO SCH (08:04)
[2018-07-25] MEDS: LORATADINE 10 MG TABLET PO SCH (08:04)
[2018-07-25] MEDS: VITAMIN E 400 UNITS CAPSULE PO SCH (08:04)
[2018-07-25] MEDS: SODIUM CHLORIDE 1 GM TABLET PO SCH ×3 (08:04→21:06)
[2018-07-25] MEDS: METHYL SALICYLATE/MENTHOL CRM 85GM TP SCH ×2 (08:05→21:06)
[2018-07-25] MEDS: NYSTATIN CRM 15GM TP SCH ×2 (08:05→21:01)
[2018-07-25] MEDS: SENNA/DOCUSATE TABLET PO SCH (08:06)
[2018-07-25 17:06] VITALS: BP 140/73
[2018-07-25 19:40] VITALS: BP 124/75
[2018-07-25] MEDS: SIMVASTATIN 10 MG TABLET PO SCH (21:07)
[2018-07-25] MEDS: TEMAZEPAM 15 MG CAPSULE PO SCH (21:07)
[2018-07-26 05:38] VITALS: BP 129/78
[2018-07-26] MEDS: METOPROLOL TARTRATE 25 MG TABLET PO SCH ×2 (05:42→17:08)
[2018-07-26] MEDS: LEVOTHYROXINE 112 MCG TABLET PO SCH (05:42)
[2018-07-26] MEDS: ACETAMINOPHEN 325 MG TABLET PO PRN ×3 (05:42→20:54)
[2018-07-26 07:25] VITALS: BP 143/82
[2018-07-26] MEDS: RISPERIDONE 1 MG TABLET PO SCH ×2 (08:14→20:52)
[2018-07-26] MEDS: VITAMIN E 400 UNITS CAPSULE PO SCH (08:15)
[2018-07-26] MEDS: AMLODIPINE 5 MG TABLET PO SCH (08:16)
[2018-07-26] MEDS: OXCARBAZEPINE 150 MG TABLET PO SCH ×2 (08:16→20:52)
[2018-07-26] MEDS: LISINOPRIL 10 MG TABLET PO SCH (08:16)
[2018-07-26] MEDS: LORATADINE 10 MG TABLET PO SCH (08:16)
[2018-07-26] MEDS: SODIUM CHLORIDE 1 GM TABLET PO SCH ×3 (08:16→20:52)
[2018-07-26] MEDS: SENNA/DOCUSATE TABLET PO SCH (08:20)
[2018-07-26] MEDS: METHYL SALICYLATE/MENTHOL CRM 85GM TP SCH ×2 (08:20→20:55)
[2018-07-26] MEDS: NYSTATIN CRM 15GM TP SCH ×2 (08:20→20:55)
[2018-07-26] MEDS ORDERED: DIAZEPAM 5 MG TABLET ONE (16:06)
[2018-07-26] MEDS: DIAZEPAM 10 MG TABLET PO PRN (16:08)
[2018-07-26 19:20] VITALS: BP 127/75
[2018-07-26] MEDS: SIMVASTATIN 10 MG TABLET PO SCH (20:53)
[2018-07-26] MEDS: TEMAZEPAM 15 MG CAPSULE PO SCH (20:53)
[2018-07-27] MEDS: METOPROLOL TARTRATE 25 MG TABLET PO SCH ×2 (05:39→17:26)
[2018-07-27] MEDS: LEVOTHYROXINE 112 MCG TABLET PO SCH (05:39)
[2018-07-27 07:15] VITALS: BP 165/104
[2018-07-27] MEDS: AMLODIPINE 5 MG TABLET PO SCH (08:09)
[2018-07-27] MEDS: SODIUM CHLORIDE 1 GM TABLET PO SCH ×3 (08:10→20:03)
[2018-07-27] MEDS: LISINOPRIL 10 MG TABLET PO SCH ×2 (08:10→20:39)
[2018-07-27] MEDS: LORATADINE 10 MG TABLET PO SCH (08:10)
[2018-07-27] MEDS: VITAMIN E 400 UNITS CAPSULE PO SCH (08:10)
[2018-07-27] MEDS: RISPERIDONE 1 MG TABLET PO SCH ×2 (08:10→20:03)
[2018-07-27] MEDS: ACETAMINOPHEN 325 MG TABLET PO PRN ×2 (08:11→20:04)
[2018-07-27] MEDS: METHYL SALICYLATE/MENTHOL CRM 85GM TP SCH ×2 (08:13→20:03)
[2018-07-27] MEDS: SENNA/DOCUSATE TABLET PO SCH (08:13)
[2018-07-27] MEDS: NYSTATIN CRM 15GM TP SCH ×2 (08:13→20:03)
[2018-07-27] MEDS: OXCARBAZEPINE 150 MG TABLET PO SCH ×2 (08:19→20:02)
[2018-07-27 17:25] VITALS: BP 132/87
[2018-07-27 19:18] VITALS: BP 167/87
[2018-07-27] MEDS ORDERED: DIAZEPAM 5 MG TABLET ONE (19:58)
[2018-07-27] MEDS: TEMAZEPAM 15 MG CAPSULE PO SCH (20:01)
[2018-07-27] MEDS: DIAZEPAM 10 MG TABLET PO PRN (20:02)
[2018-07-27] MEDS: SIMVASTATIN 10 MG TABLET PO SCH (20:03)
[2018-07-27] MEDS ORDERED: LISINOPRIL 10 MG TABLET PO ONE (20:29)
[2018-07-27 21:59] VITALS: BP 125/83
[2018-07-28] MEDS: LEVOTHYROXINE 112 MCG TABLET PO SCH (05:05)
[2018-07-28] MEDS: METOPROLOL TARTRATE 25 MG TABLET PO SCH ×2 (05:06→17:05)
[2018-07-28] MEDS: ACETAMINOPHEN 325 MG TABLET PO PRN ×3 (05:06→20:13)
[2018-07-28 07:10] VITALS: BP 155/77
[2018-07-28] MEDS: SODIUM CHLORIDE 1 GM TABLET PO SCH ×3 (08:07→20:13)
[2018-07-28] MEDS: AMLODIPINE 5 MG TABLET PO SCH (08:07)
[2018-07-28] MEDS: VITAMIN E 400 UNITS CAPSULE PO SCH (08:07)
[2018-07-28] MEDS: LORATADINE 10 MG TABLET PO SCH (08:07)
[2018-07-28] MEDS: RISPERIDONE 1 MG TABLET PO SCH ×2 (08:07→20:12)
[2018-07-28] MEDS: OXCARBAZEPINE 150 MG TABLET PO SCH ×2 (08:07→20:12)
[2018-07-28] MEDS: LISINOPRIL 10 MG TABLET PO SCH ×2 (08:07→20:12)
[2018-07-28] MEDS: NYSTATIN CRM 15GM TP SCH ×2 (08:08→20:16)
[2018-07-28] MEDS: METHYL SALICYLATE/MENTHOL CRM 85GM TP SCH ×2 (08:08→20:16)
[2018-07-28] MEDS: SENNA/DOCUSATE TABLET PO SCH (08:08)
[2018-07-28] MEDS ORDERED: DIAZEPAM 5 MG TABLET ONE (17:01)
[2018-07-28] MEDS: DIAZEPAM 10 MG TABLET PO PRN (17:04)
[2018-07-28 19:30] VITALS: BP 137/97
[2018-07-28] MEDS: TEMAZEPAM 15 MG CAPSULE PO SCH (20:12)
[2018-07-28] MEDS: SIMVASTATIN 10 MG TABLET PO SCH (20:12)
[2018-07-29 05:05] VITALS: BP 111/73
[2018-07-29] MEDS: ACETAMINOPHEN 325 MG TABLET PO PRN ×2 (05:09→20:39)
[2018-07-29] MEDS: METOPROLOL TARTRATE 25 MG TABLET PO SCH ×2 (05:10→17:53)
[2018-07-29] MEDS: LEVOTHYROXINE 112 MCG TABLET PO SCH (05:10)
[2018-07-29 07:31] VITALS: BP 162/76
[2018-07-29] MEDS: LORATADINE 10 MG TABLET PO SCH (08:19)
[2018-07-29] MEDS: AMLODIPINE 5 MG TABLET PO SCH (08:19)
[2018-07-29] MEDS: VITAMIN E 400 UNITS CAPSULE PO SCH (08:19)
[2018-07-29] MEDS: LISINOPRIL 10 MG TABLET PO SCH ×2 (08:19→20:40)
[2018-07-29] MEDS: OXCARBAZEPINE 150 MG TABLET PO SCH ×2 (08:19→20:40)
[2018-07-29] MEDS: SODIUM CHLORIDE 1 GM TABLET PO SCH ×3 (08:19→20:40)
[2018-07-29] MEDS: RISPERIDONE 1 MG TABLET PO SCH ×2 (08:19→20:39)
[2018-07-29] MEDS: NYSTATIN CRM 15GM TP SCH ×2 (08:20→20:40)
[2018-07-29] MEDS: METHYL SALICYLATE/MENTHOL CRM 85GM TP SCH ×2 (08:20→20:40)
[2018-07-29] MEDS: SENNA/DOCUSATE TABLET PO SCH (09:05)
[2018-07-29] MEDS ORDERED: DIAZEPAM 5 MG TABLET ONE ×2 (09:38→15:47)
[2018-07-29] MEDS: DIAZEPAM 10 MG TABLET PO PRN ×2 (09:39→15:49)
[2018-07-29 17:51] VITALS: BP 156/88
[2018-07-29 19:51] VITALS: BP 151/85
[2018-07-29] MEDS: SIMVASTATIN 10 MG TABLET PO SCH (20:39)
[2018-07-29] MEDS: TEMAZEPAM 15 MG CAPSULE PO SCH (20:40)
[2018-07-30 05:40] VITALS: BP 154/77
[2018-07-30] MEDS: ACETAMINOPHEN 325 MG TABLET PO PRN ×4 (05:45→20:48)
[2018-07-30] MEDS: LEVOTHYROXINE 112 MCG TABLET PO SCH (05:45)
[2018-07-30] MEDS: METOPROLOL TARTRATE 25 MG TABLET PO SCH ×2 (05:48→18:13)
[2018-07-30 08:00] VITALS: BP 161/83
[2018-07-30] MEDS: VITAMIN E 400 UNITS CAPSULE PO SCH (08:10)
[2018-07-30] MEDS: SODIUM CHLORIDE 1 GM TABLET PO SCH ×3 (08:10→20:48)
[2018-07-30] MEDS: RISPERIDONE 1 MG TABLET PO SCH ×2 (08:10→20:47)
[2018-07-30] MEDS: AMLODIPINE 5 MG TABLET PO SCH (08:11)
[2018-07-30] MEDS: OXCARBAZEPINE 150 MG TABLET PO SCH ×2 (08:11→20:48)
[2018-07-30] MEDS: LISINOPRIL 10 MG TABLET PO SCH ×2 (08:11→20:48)
[2018-07-30] MEDS: LORATADINE 10 MG TABLET PO SCH (08:11)
[2018-07-30] MEDS: METHYL SALICYLATE/MENTHOL CRM 85GM TP SCH ×2 (08:12→20:48)
[2018-07-30] MEDS: NYSTATIN CRM 15GM TP SCH ×2 (08:12→20:49)
[2018-07-30] MEDS: SENNA/DOCUSATE TABLET PO SCH (08:12)
[2018-07-30 18:08] VITALS: BP 141/83
[2018-07-30] MEDS: SIMVASTATIN 10 MG TABLET PO SCH (20:47)
[2018-07-30] MEDS: TEMAZEPAM 15 MG CAPSULE PO SCH (20:48)
[2018-07-31 05:28] VITALS: BP 133/79
[2018-07-31] MEDS: LEVOTHYROXINE 112 MCG TABLET PO SCH (05:31)
[2018-07-31] MEDS: ACETAMINOPHEN 325 MG TABLET PO PRN ×2 (05:32→20:45)
[2018-07-31] MEDS: METOPROLOL TARTRATE 25 MG TABLET PO SCH ×2 (05:32→17:42)
[2018-07-31 07:42] VITALS: BP 172/88
[2018-07-31] MEDS: AMLODIPINE 5 MG TABLET PO SCH (08:29)
[2018-07-31] MEDS: LORATADINE 10 MG TABLET PO SCH (08:29)
[2018-07-31] MEDS: SODIUM CHLORIDE 1 GM TABLET PO SCH ×3 (08:30→20:45)
[2018-07-31] MEDS: RISPERIDONE 1 MG TABLET PO SCH ×2 (08:30→20:46)
[2018-07-31] MEDS: LISINOPRIL 10 MG TABLET PO SCH ×2 (08:30→20:45)
[2018-07-31] MEDS: VITAMIN E 400 UNITS CAPSULE PO SCH (08:31)
[2018-07-31] MEDS: METHYL SALICYLATE/MENTHOL CRM 85GM TP SCH ×2 (08:31→21:04)
[2018-07-31] MEDS: NYSTATIN CRM 15GM TP SCH ×2 (08:31→20:47)
[2018-07-31] MEDS: OXCARBAZEPINE 150 MG TABLET PO SCH ×2 (08:31→20:45)
[2018-07-31] MEDS: SENNA/DOCUSATE TABLET PO SCH (08:35)
[2018-07-31 17:25] VITALS: BP 162/94
[2018-07-31] MEDS ORDERED: METOPROLOL SUCCINATE 25 MG TAB.ER.24H ONE (17:39)
[2018-07-31] MEDS: SIMVASTATIN 10 MG TABLET PO SCH (20:45)
[2018-07-31] MEDS: TEMAZEPAM 15 MG CAPSULE PO SCH (20:45)
[2018-07-31 20:49] VITALS: BP 121/82
[2018-08-01 05:18] VITALS: BP 166/79
[2018-08-01] MEDS: METOPROLOL TARTRATE 25 MG TABLET PO SCH ×2 (05:23→17:02)
[2018-08-01] MEDS: ACETAMINOPHEN 325 MG TABLET PO PRN ×3 (05:23→19:40)
[2018-08-01] MEDS: LEVOTHYROXINE 112 MCG TABLET PO SCH (05:23)
[2018-08-01 07:54] VITALS: BP 177/99
[2018-08-01] MEDS: RISPERIDONE 1 MG TABLET PO SCH ×2 (08:21→19:40)
[2018-08-01] MEDS: VITAMIN E 400 UNITS CAPSULE PO SCH (08:21)
[2018-08-01] MEDS: LISINOPRIL 10 MG TABLET PO SCH ×2 (08:22→19:39)
[2018-08-01] MEDS: OXCARBAZEPINE 150 MG TABLET PO SCH ×2 (08:22→19:39)
[2018-08-01] MEDS: SODIUM CHLORIDE 1 GM TABLET PO SCH ×3 (08:22→19:39)
[2018-08-01] MEDS: LORATADINE 10 MG TABLET PO SCH (08:22)
[2018-08-01] MEDS: AMLODIPINE 5 MG TABLET PO SCH (08:22)
[2018-08-01] MEDS: SENNA/DOCUSATE TABLET PO SCH (08:22)
[2018-08-01] MEDS: NYSTATIN CRM 15GM TP SCH ×2 (08:23→20:05)
[2018-08-01] MEDS: METHYL SALICYLATE/MENTHOL CRM 85GM TP SCH ×2 (08:23→20:05)
[2018-08-01 17:01] VITALS: BP 164/104
[2018-08-01 19:17] VITALS: BP 124/92
[2018-08-01] MEDS: TEMAZEPAM 15 MG CAPSULE PO SCH (19:40)
[2018-08-01] MEDS: SIMVASTATIN 10 MG TABLET PO SCH (19:45)
[2018-08-02] MEDS: METOPROLOL TARTRATE 25 MG TABLET PO SCH ×2 (05:46→17:41)
[2018-08-02] MEDS: LEVOTHYROXINE 112 MCG TABLET PO SCH (05:46)
[2018-08-02] MEDS: ACETAMINOPHEN 325 MG TABLET PO PRN ×2 (05:52→20:04)
[2018-08-02 07:20] VITALS: BP 144/82
[2018-08-02] MEDS: AMLODIPINE 5 MG TABLET PO SCH (08:25)
[2018-08-02] MEDS: LISINOPRIL 10 MG TABLET PO SCH ×2 (08:25→20:03)
[2018-08-02] MEDS: VITAMIN E 400 UNITS CAPSULE PO SCH (08:25)
[2018-08-02] MEDS: OXCARBAZEPINE 150 MG TABLET PO SCH ×2 (08:25→20:03)
[2018-08-02] MEDS: SENNA/DOCUSATE TABLET PO SCH (08:26)
[2018-08-02] MEDS: LORATADINE 10 MG TABLET PO SCH (08:26)
[2018-08-02] MEDS: RISPERIDONE 1 MG TABLET PO SCH ×2 (08:26→20:03)
[2018-08-02] MEDS: SODIUM CHLORIDE 1 GM TABLET PO SCH ×3 (08:26→20:03)
[2018-08-02] MEDS: METHYL SALICYLATE/MENTHOL CRM 85GM TP SCH ×2 (08:27→20:04)
[2018-08-02] MEDS: NYSTATIN CRM 15GM TP SCH ×2 (08:31→20:04)
[2018-08-02 17:35] VITALS: BP 158/90
[2018-08-02 19:12] VITALS: BP 146/86
[2018-08-02] MEDS: SIMVASTATIN 10 MG TABLET PO SCH (20:03)
[2018-08-02] MEDS: TEMAZEPAM 15 MG CAPSULE PO SCH (20:03)
[2018-08-03 05:38] VITALS: BP 116/85
[2018-08-03] MEDS: ACETAMINOPHEN 325 MG TABLET PO PRN ×3 (05:38→20:09)
[2018-08-03] MEDS: LEVOTHYROXINE 112 MCG TABLET PO SCH (05:38)
[2018-08-03] MEDS: METOPROLOL TARTRATE 25 MG TABLET PO SCH ×2 (05:39→17:08)
[2018-08-03 07:42] VITALS: BP 140/86
[2018-08-03] MEDS: SODIUM CHLORIDE 1 GM TABLET PO SCH ×3 (08:28→20:08)
[2018-08-03] MEDS: AMLODIPINE 5 MG TABLET PO SCH (08:28)
[2018-08-03] MEDS: LORATADINE 10 MG TABLET PO SCH (08:28)
[2018-08-03] MEDS: LISINOPRIL 10 MG TABLET PO SCH ×2 (08:28→20:09)
[2018-08-03] MEDS: SENNA/DOCUSATE TABLET PO SCH (08:28)
[2018-08-03] MEDS: VITAMIN E 400 UNITS CAPSULE PO SCH (08:28)
[2018-08-03] MEDS: RISPERIDONE 1 MG TABLET PO SCH ×2 (08:29→20:09)
[2018-08-03] MEDS: METHYL SALICYLATE/MENTHOL CRM 85GM TP SCH ×2 (08:29→20:10)
[2018-08-03] MEDS: OXCARBAZEPINE 150 MG TABLET PO SCH ×2 (08:29→20:09)
[2018-08-03] MEDS: NYSTATIN CRM 15GM TP SCH ×2 (08:29→20:10)
[2018-08-03 17:11] VITALS: BP 136/93
[2018-08-03 19:38] VITALS: BP 116/63
[2018-08-03] MEDS: SIMVASTATIN 10 MG TABLET PO SCH (20:09)
[2018-08-03] MEDS: TEMAZEPAM 15 MG CAPSULE PO SCH (20:09)
[2018-08-04] MEDS: METOPROLOL TARTRATE 25 MG TABLET PO SCH ×2 (06:00→16:58)
[2018-08-04] MEDS: LEVOTHYROXINE 112 MCG TABLET PO SCH (06:00)
[2018-08-04] MEDS: ACETAMINOPHEN 325 MG TABLET PO PRN ×2 (06:17→17:03)
[2018-08-04 07:05] VITALS: BP 137/88
[2018-08-04] MEDS: RISPERIDONE 1 MG TABLET PO SCH ×2 (08:54→20:15)
[2018-08-04] MEDS: VITAMIN E 400 UNITS CAPSULE PO SCH (08:54)
[2018-08-04] MEDS: METHYL SALICYLATE/MENTHOL CRM 85GM TP SCH ×2 (08:54→21:00)
[2018-08-04] MEDS: NYSTATIN CRM 15GM TP SCH ×2 (08:55→21:00)
[2018-08-04] MEDS: SENNA/DOCUSATE TABLET PO SCH (08:55)
[2018-08-04] MEDS: OXCARBAZEPINE 150 MG TABLET PO SCH ×2 (08:55→20:16)
[2018-08-04] MEDS: LISINOPRIL 10 MG TABLET PO SCH ×2 (08:55→20:16)
[2018-08-04] MEDS: SODIUM CHLORIDE 1 GM TABLET PO SCH ×3 (08:55→20:16)
[2018-08-04] MEDS: LORATADINE 10 MG TABLET PO SCH (08:55)
[2018-08-04] MEDS: AMLODIPINE 5 MG TABLET PO SCH (08:55)
[2018-08-04] MEDS ORDERED: DIAZEPAM 5 MG TABLET ONE ×2 (12:48→19:30)
[2018-08-04] MEDS ORDERED: LORazepam 2 MG/ML, 1ML IM PRN (13:30)
[2018-08-04] MEDS ORDERED: LORazepam 2 MG/ML, 1ML IM ONE (13:30)
[2018-08-04 15:36] VITALS: BP 172/90
[2018-08-04 16:57] VITALS: BP 137/78
[2018-08-04 19:44] VITALS: BP 108/73
[2018-08-04] MEDS: SIMVASTATIN 10 MG TABLET PO SCH (20:15)
[2018-08-04] MEDS: DIAZEPAM 10 MG TABLET PO PRN (20:16)
[2018-08-04] MEDS: TEMAZEPAM 15 MG CAPSULE PO SCH (20:16)
[2018-08-05] MEDS: LEVOTHYROXINE 112 MCG TABLET PO SCH (06:00)
[2018-08-05] MEDS: METOPROLOL TARTRATE 25 MG TABLET PO SCH ×2 (06:00→17:46)
[2018-08-05 07:10] VITALS: BP 159/97
[2018-08-05] MEDS ORDERED: DIAZEPAM 5 MG TABLET ONE (08:16)
[2018-08-05] MEDS: LORATADINE 10 MG TABLET PO SCH (08:18)
[2018-08-05] MEDS: RISPERIDONE 1 MG TABLET PO SCH ×2 (08:19→20:28)
[2018-08-05] MEDS: SENNA/DOCUSATE TABLET PO SCH (08:19)
[2018-08-05] MEDS: AMLODIPINE 5 MG TABLET PO SCH (08:19)
[2018-08-05] MEDS: VITAMIN E 400 UNITS CAPSULE PO SCH (08:19)
[2018-08-05] MEDS: OXCARBAZEPINE 150 MG TABLET PO SCH ×2 (08:19→20:28)
[2018-08-05] MEDS: SODIUM CHLORIDE 1 GM TABLET PO SCH ×3 (08:20→20:27)
[2018-08-05] MEDS: LISINOPRIL 10 MG TABLET PO SCH ×2 (08:20→20:28)
[2018-08-05] MEDS: DIAZEPAM 10 MG TABLET PO PRN (08:21)
[2018-08-05] MEDS: NYSTATIN CRM 15GM TP SCH ×2 (08:23→20:30)
[2018-08-05] MEDS: METHYL SALICYLATE/MENTHOL CRM 85GM TP SCH ×2 (08:23→20:28)
[2018-08-05] MEDS: ACETAMINOPHEN 325 MG TABLET PO PRN ×2 (13:30→20:28)
[2018-08-05 17:45] VITALS: BP 137/94
[2018-08-05 19:50] VITALS: BP 146/77
[2018-08-05] MEDS: TEMAZEPAM 15 MG CAPSULE PO SCH (20:28)
[2018-08-05] MEDS: SIMVASTATIN 10 MG TABLET PO SCH (20:28)
[2018-08-06 05:19] VITALS: BP 149/69
[2018-08-06] MEDS: LEVOTHYROXINE 112 MCG TABLET PO SCH (05:19)
[2018-08-06] MEDS: METOPROLOL TARTRATE 25 MG TABLET PO SCH ×2 (05:19→17:22)
[2018-08-06] MEDS: ACETAMINOPHEN 325 MG TABLET PO PRN ×3 (05:21→20:16)
[2018-08-06 07:41] VITALS: BP 145/84
[2018-08-06] MEDS: LISINOPRIL 10 MG TABLET PO SCH ×2 (08:09→20:16)
[2018-08-06] MEDS: SENNA/DOCUSATE TABLET PO SCH (08:09)
[2018-08-06] MEDS: AMLODIPINE 5 MG TABLET PO SCH (08:09)
[2018-08-06] MEDS: LORATADINE 10 MG TABLET PO SCH (08:09)
[2018-08-06] MEDS: SODIUM CHLORIDE 1 GM TABLET PO SCH ×3 (08:09→20:15)
[2018-08-06] MEDS: OXCARBAZEPINE 150 MG TABLET PO SCH ×2 (08:10→20:16)
[2018-08-06] MEDS: VITAMIN E 400 UNITS CAPSULE PO SCH (08:10)
[2018-08-06] MEDS: RISPERIDONE 1 MG TABLET PO SCH ×2 (08:10→20:16)
[2018-08-06] MEDS: METHYL SALICYLATE/MENTHOL CRM 85GM TP SCH ×2 (08:10→20:16)
[2018-08-06] MEDS: NYSTATIN CRM 15GM TP SCH ×2 (08:10→20:16)
[2018-08-06] MEDS ORDERED: DIAZEPAM 5 MG TABLET ONE (09:38)
[2018-08-06] MEDS: DIAZEPAM 10 MG TABLET PO PRN (09:41)
[2018-08-06 17:21] VITALS: BP 136/90
[2018-08-06 19:41] VITALS: BP 138/88
[2018-08-06] MEDS: SIMVASTATIN 10 MG TABLET PO SCH (20:15)
[2018-08-06] MEDS: TEMAZEPAM 15 MG CAPSULE PO SCH (20:15)
[2018-08-07] VITALS (13 sets, daily range): BP systolic 110–169; BP diastolic 65–133
[2018-08-07] MEDS: LEVOTHYROXINE 112 MCG TABLET PO SCH (06:10)
[2018-08-07] MEDS: METOPROLOL TARTRATE 25 MG TABLET PO SCH ×2 (06:10→18:00)
[2018-08-07] MEDS: ACETAMINOPHEN 325 MG TABLET PO PRN ×3 (06:11→20:51)
[2018-08-07] MEDS: OXCARBAZEPINE 150 MG TABLET PO SCH ×2 (08:53→20:50)
[2018-08-07] MEDS: SENNA/DOCUSATE TABLET PO SCH (08:53)
[2018-08-07] MEDS: VITAMIN E 400 UNITS CAPSULE PO SCH (08:53)
[2018-08-07] MEDS: SODIUM CHLORIDE 1 GM TABLET PO SCH ×3 (08:54→20:50)
[2018-08-07] MEDS: NYSTATIN CRM 15GM TP SCH ×2 (08:54→21:00)
[2018-08-07] MEDS: LISINOPRIL 10 MG TABLET PO SCH ×2 (08:54→20:47)
[2018-08-07] MEDS: RISPERIDONE 1 MG TABLET PO SCH ×2 (08:54→20:50)
[2018-08-07] MEDS: AMLODIPINE 5 MG TABLET PO SCH (08:54)
[2018-08-07] MEDS: LORATADINE 10 MG TABLET PO SCH (08:54)
[2018-08-07] MEDS ORDERED: DIAZEPAM 5 MG TABLET ONE (08:56)
[2018-08-07] MEDS: DIAZEPAM 10 MG TABLET PO PRN (08:58)
[2018-08-07] MEDS: METHYL SALICYLATE/MENTHOL CRM 85GM TP SCH ×2 (09:00→21:00)
--- NOTE | 2018-08-07 14:03 | NUR ---
SHAYNE HARDEN Fall Risk Medications present and NOT receiving anticoagulants. Signed: 08/07/18 at 1403 by SHONNA MEI
[2018-08-07] MEDS: TEMAZEPAM 15 MG CAPSULE PO SCH (20:49)
[2018-08-07] MEDS: SIMVASTATIN 10 MG TABLET PO SCH (20:53)
[2018-08-08] MEDS: LEVOTHYROXINE 112 MCG TABLET PO SCH (05:54)
[2018-08-08] MEDS: METOPROLOL TARTRATE 25 MG TABLET PO SCH ×2 (05:54→17:47)
[2018-08-08] MEDS: ACETAMINOPHEN 325 MG TABLET PO PRN ×3 (05:55→20:47)
[2018-08-08 07:57] VITALS: BP 182/86
[2018-08-08] MEDS: NYSTATIN CRM 15GM TP SCH ×2 (08:43→20:47)
[2018-08-08] MEDS: LISINOPRIL 10 MG TABLET PO SCH ×2 (08:50→20:47)
[2018-08-08] MEDS: RISPERIDONE 1 MG TABLET PO SCH ×2 (08:50→20:47)
[2018-08-08] MEDS: LORATADINE 10 MG TABLET PO SCH (08:50)
[2018-08-08] MEDS: AMLODIPINE 5 MG TABLET PO SCH (08:50)
[2018-08-08] MEDS: METHYL SALICYLATE/MENTHOL CRM 85GM TP SCH ×2 (08:51→20:47)
[2018-08-08] MEDS: SENNA/DOCUSATE TABLET PO SCH (08:51)
[2018-08-08] MEDS: SODIUM CHLORIDE 1 GM TABLET PO SCH ×3 (08:51→20:47)
[2018-08-08] MEDS: OXCARBAZEPINE 150 MG TABLET PO SCH ×2 (08:51→20:47)
[2018-08-08] MEDS: VITAMIN E 400 UNITS CAPSULE PO SCH (08:51)
[2018-08-08 18:00] VITALS: BP 166/89
[2018-08-08 19:40] VITALS: BP 147/92
[2018-08-08] MEDS: SIMVASTATIN 10 MG TABLET PO SCH (20:47)
[2018-08-08] MEDS: TEMAZEPAM 15 MG CAPSULE PO SCH (20:47)
[2018-08-09 05:45] VITALS: BP 145/83
[2018-08-09] MEDS: ACETAMINOPHEN 325 MG TABLET PO PRN (05:48)
[2018-08-09] MEDS: METOPROLOL TARTRATE 25 MG TABLET PO SCH ×2 (05:48→16:48)
[2018-08-09] MEDS: LEVOTHYROXINE 112 MCG TABLET PO SCH (05:48)
[2018-08-09 07:49] VITALS: BP 141/82
[2018-08-09] MEDS ORDERED: DIAZEPAM 5 MG TABLET ONE (08:36)
[2018-08-09] MEDS: VITAMIN E 400 UNITS CAPSULE PO SCH (08:39)
[2018-08-09] MEDS: DIAZEPAM 10 MG TABLET PO PRN (08:39)
[2018-08-09] MEDS: SODIUM CHLORIDE 1 GM TABLET PO SCH ×3 (08:40→20:23)
[2018-08-09] MEDS: OXCARBAZEPINE 150 MG TABLET PO SCH ×2 (08:41→20:23)
[2018-08-09] MEDS: RISPERIDONE 1 MG TABLET PO SCH ×2 (08:41→20:23)
[2018-08-09] MEDS: LISINOPRIL 10 MG TABLET PO SCH ×2 (08:41→20:23)
[2018-08-09] MEDS: AMLODIPINE 5 MG TABLET PO SCH (08:42)
[2018-08-09] MEDS: SENNA/DOCUSATE TABLET PO SCH (08:45)
[2018-08-09] MEDS: LORATADINE 10 MG TABLET PO SCH (09:00)
[2018-08-09] MEDS: NYSTATIN CRM 15GM TP SCH ×2 (09:00→20:24)
[2018-08-09] MEDS: METHYL SALICYLATE/MENTHOL CRM 85GM TP SCH ×2 (09:00→20:24)
[2018-08-09 19:34] VITALS: BP 164/103
[2018-08-09] MEDS: SIMVASTATIN 10 MG TABLET PO SCH (20:23)
[2018-08-09] MEDS: TEMAZEPAM 15 MG CAPSULE PO SCH (20:23)
[2018-08-10 05:30] VITALS: BP 107/68
[2018-08-10] MEDS: ACETAMINOPHEN 325 MG TABLET PO PRN ×3 (05:36→20:23)
[2018-08-10] MEDS: METOPROLOL TARTRATE 25 MG TABLET PO SCH ×2 (05:36→17:00)
[2018-08-10] MEDS: LEVOTHYROXINE 112 MCG TABLET PO SCH (05:36)
[2018-08-10 08:06] VITALS: BP 149/69
[2018-08-10] MEDS ORDERED: RISPERIDONE 0.5 MG TABLET ONE (08:39)
[2018-08-10] MEDS ORDERED: DIAZEPAM 5 MG TABLET ONE ×2 (08:40→22:10)
[2018-08-10] MEDS: DIAZEPAM 10 MG TABLET PO PRN (08:43)
[2018-08-10] MEDS: LORATADINE 10 MG TABLET PO SCH (08:45)
[2018-08-10] MEDS: OXCARBAZEPINE 150 MG TABLET PO SCH ×2 (08:45→17:00)
[2018-08-10] MEDS: SODIUM CHLORIDE 1 GM TABLET PO SCH ×3 (08:45→20:24)
[2018-08-10] MEDS: RISPERIDONE 1 MG TABLET PO SCH ×2 (08:46→20:24)
[2018-08-10] MEDS: LISINOPRIL 10 MG TABLET PO SCH ×2 (08:47→20:24)
[2018-08-10] MEDS: AMLODIPINE 5 MG TABLET PO SCH (08:47)
[2018-08-10] MEDS: VITAMIN E 400 UNITS CAPSULE PO SCH (08:47)
[2018-08-10] MEDS: SENNA/DOCUSATE TABLET PO SCH (08:57)
[2018-08-10] MEDS: NYSTATIN CRM 15GM TP SCH ×2 (08:58→20:25)
[2018-08-10] MEDS: METHYL SALICYLATE/MENTHOL CRM 85GM TP SCH ×2 (08:58→20:25)
[2018-08-10 11:17] VITALS: BP 146/84
[2018-08-10 19:25] VITALS: BP 149/82
[2018-08-10] MEDS: TEMAZEPAM 15 MG CAPSULE PO SCH (20:24)
[2018-08-10] MEDS: SIMVASTATIN 10 MG TABLET PO SCH (20:24)
[2018-08-10] MEDS: BENZTROPINE 1 MG TABLET PO SCH (20:24)
[2018-08-10] MEDS ORDERED: DIAZEPAM 5 MG/ML, 2ML IV ONE (23:00)
[2018-08-11] MEDS ORDERED: DIAZEPAM 5 MG TABLET ONE (07:05)
[2018-08-11 07:14] VITALS: BP 133/85
[2018-08-11] MEDS: LEVOTHYROXINE 112 MCG TABLET PO SCH (07:25)
[2018-08-11] MEDS: METOPROLOL TARTRATE 25 MG TABLET PO SCH ×2 (07:25→16:56)
[2018-08-11] MEDS: DIAZEPAM 10 MG TABLET PO PRN (07:26)
[2018-08-11] MEDS: ACETAMINOPHEN 325 MG TABLET PO PRN ×2 (08:51→20:09)
[2018-08-11] MEDS: SODIUM CHLORIDE 1 GM TABLET PO SCH ×3 (08:51→20:06)
[2018-08-11] MEDS: RISPERIDONE 1 MG TABLET PO SCH ×2 (08:51→20:07)
[2018-08-11] MEDS: NYSTATIN CRM 15GM TP SCH ×2 (08:52→21:00)
[2018-08-11] MEDS: OXCARBAZEPINE 150 MG TABLET PO SCH ×2 (08:52→16:56)
[2018-08-11] MEDS: SENNA/DOCUSATE TABLET PO SCH (08:52)
[2018-08-11] MEDS: LORATADINE 10 MG TABLET PO SCH (08:52)
[2018-08-11] MEDS: METHYL SALICYLATE/MENTHOL CRM 85GM TP SCH ×2 (08:52→20:09)
[2018-08-11] MEDS: LISINOPRIL 10 MG TABLET PO SCH ×2 (08:52→20:06)
[2018-08-11] MEDS: VITAMIN E 400 UNITS CAPSULE PO SCH (08:52)
[2018-08-11] MEDS: AMLODIPINE 5 MG TABLET PO SCH (08:52)
[2018-08-11 19:30] VITALS: BP 109/68
[2018-08-11] MEDS: TEMAZEPAM 15 MG CAPSULE PO SCH (20:06)
[2018-08-11] MEDS: BENZTROPINE 1 MG TABLET PO SCH (20:06)
[2018-08-11] MEDS: SIMVASTATIN 10 MG TABLET PO SCH (20:06)
[2018-08-12] MEDS: ACETAMINOPHEN 325 MG TABLET PO PRN ×2 (05:24→20:54)
[2018-08-12] MEDS: METOPROLOL TARTRATE 25 MG TABLET PO SCH ×2 (05:24→17:50)
[2018-08-12] MEDS: LEVOTHYROXINE 112 MCG TABLET PO SCH (05:24)
[2018-08-12 07:20] VITALS: BP 138/84
[2018-08-12] MEDS: SODIUM CHLORIDE 1 GM TABLET PO SCH ×3 (08:54→20:56)
[2018-08-12] MEDS: LORATADINE 10 MG TABLET PO SCH (08:54)
[2018-08-12] MEDS: SENNA/DOCUSATE TABLET PO SCH (08:54)
[2018-08-12] MEDS: AMLODIPINE 5 MG TABLET PO SCH (08:55)
[2018-08-12] MEDS: VITAMIN E 400 UNITS CAPSULE PO SCH (08:55)
[2018-08-12] MEDS: LISINOPRIL 10 MG TABLET PO SCH ×2 (08:55→20:56)
[2018-08-12] MEDS: RISPERIDONE 1 MG TABLET PO SCH ×2 (08:55→20:56)
[2018-08-12] MEDS: OXCARBAZEPINE 150 MG TABLET PO SCH ×3 (08:55→17:53)
[2018-08-12] MEDS: NYSTATIN CRM 15GM TP SCH ×2 (09:00→20:56)
[2018-08-12] MEDS: METHYL SALICYLATE/MENTHOL CRM 85GM TP SCH ×2 (09:00→20:56)
[2018-08-12 19:46] VITALS: BP 140/85
[2018-08-12] MEDS: TEMAZEPAM 15 MG CAPSULE PO SCH (20:55)
[2018-08-12] MEDS: SIMVASTATIN 10 MG TABLET PO SCH (20:56)
[2018-08-12] MEDS: BENZTROPINE 1 MG TABLET PO SCH (20:56)
[2018-08-13 05:30] VITALS: BP 144/86
[2018-08-13] MEDS: LEVOTHYROXINE 112 MCG TABLET PO SCH (05:47)
[2018-08-13] MEDS: ACETAMINOPHEN 325 MG TABLET PO PRN ×3 (05:47→17:51)
[2018-08-13] MEDS: METOPROLOL TARTRATE 25 MG TABLET PO SCH ×2 (05:48→16:24)
[2018-08-13 08:13] VITALS: BP 154/83
[2018-08-13] MEDS: VITAMIN E 400 UNITS CAPSULE PO SCH (08:19)
[2018-08-13] MEDS: SODIUM CHLORIDE 1 GM TABLET PO SCH ×3 (08:19→21:01)
[2018-08-13] MEDS: RISPERIDONE 1 MG TABLET PO SCH ×2 (08:19→20:56)
[2018-08-13] MEDS: LORATADINE 10 MG TABLET PO SCH (08:19)
[2018-08-13] MEDS: AMLODIPINE 5 MG TABLET PO SCH (08:19)
[2018-08-13] MEDS: LISINOPRIL 10 MG TABLET PO SCH ×2 (08:20→20:58)
[2018-08-13] MEDS: OXCARBAZEPINE 150 MG TABLET PO SCH ×2 (08:20→16:24)
[2018-08-13] MEDS: METHYL SALICYLATE/MENTHOL CRM 85GM TP SCH ×2 (08:20→21:01)
[2018-08-13] MEDS: NYSTATIN CRM 15GM TP SCH ×2 (08:21→21:01)
[2018-08-13] MEDS: SENNA/DOCUSATE TABLET PO SCH (09:48)
[2018-08-13 17:05] VITALS: BP 144/87
[2018-08-13 19:41] VITALS: BP 138/76
[2018-08-13] MEDS: BENZTROPINE 1 MG TABLET PO SCH (20:57)
[2018-08-13] MEDS: SIMVASTATIN 10 MG TABLET PO SCH (20:58)
[2018-08-13] MEDS: TEMAZEPAM 15 MG CAPSULE PO SCH (20:58)
[2018-08-14 05:09] VITALS: BP 123/85
[2018-08-14] MEDS: METOPROLOL TARTRATE 25 MG TABLET PO SCH ×2 (05:24→16:56)
[2018-08-14] MEDS: LEVOTHYROXINE 112 MCG TABLET PO SCH (05:24)
[2018-08-14] MEDS: ACETAMINOPHEN 325 MG TABLET PO PRN ×3 (05:24→20:57)
[2018-08-14 07:50] VITALS: BP 166/83
[2018-08-14] MEDS: LORATADINE 10 MG TABLET PO SCH (08:31)
[2018-08-14] MEDS: SENNA/DOCUSATE TABLET PO SCH (08:31)
[2018-08-14] MEDS: VITAMIN E 400 UNITS CAPSULE PO SCH (08:31)
[2018-08-14] MEDS: RISPERIDONE 1 MG TABLET PO SCH ×2 (08:31→20:44)
[2018-08-14] MEDS: SODIUM CHLORIDE 1 GM TABLET PO SCH ×3 (08:31→20:44)
[2018-08-14] MEDS: LISINOPRIL 10 MG TABLET PO SCH ×2 (08:31→20:44)
[2018-08-14] MEDS: METHYL SALICYLATE/MENTHOL CRM 85GM TP SCH ×2 (08:31→20:44)
[2018-08-14] MEDS: AMLODIPINE 5 MG TABLET PO SCH (08:31)
[2018-08-14] MEDS: OXCARBAZEPINE 150 MG TABLET PO SCH ×2 (08:32→16:56)
[2018-08-14] MEDS: NYSTATIN CRM 15GM TP SCH ×2 (09:00→20:44)
[2018-08-14 19:20] VITALS: BP 137/84
[2018-08-14] MEDS: SIMVASTATIN 10 MG TABLET PO SCH (20:44)
[2018-08-14] MEDS: BENZTROPINE 1 MG TABLET PO SCH (20:44)
[2018-08-14] MEDS: TEMAZEPAM 15 MG CAPSULE PO SCH (20:44)
[2018-08-15] MEDS: ACETAMINOPHEN 325 MG TABLET PO PRN ×3 (05:00→19:55)
[2018-08-15] MEDS: METOPROLOL TARTRATE 25 MG TABLET PO SCH ×2 (05:00→17:13)
[2018-08-15] MEDS: LEVOTHYROXINE 112 MCG TABLET PO SCH (05:00)
[2018-08-15 08:01] VITALS: BP 174/82
[2018-08-15] MEDS: VITAMIN E 400 UNITS CAPSULE PO SCH (08:36)
[2018-08-15] MEDS: RISPERIDONE 1 MG TABLET PO SCH ×2 (08:37→19:56)
[2018-08-15] MEDS: SODIUM CHLORIDE 1 GM TABLET PO SCH ×3 (08:37→19:55)
[2018-08-15] MEDS: OXCARBAZEPINE 150 MG TABLET PO SCH ×2 (08:37→17:12)
[2018-08-15] MEDS: AMLODIPINE 5 MG TABLET PO SCH (08:37)
[2018-08-15] MEDS: LISINOPRIL 10 MG TABLET PO SCH ×2 (08:38→19:56)
[2018-08-15] MEDS: SENNA/DOCUSATE TABLET PO SCH (08:42)
[2018-08-15] MEDS: METHYL SALICYLATE/MENTHOL CRM 85GM TP SCH ×2 (09:00→21:00)
[2018-08-15] MEDS: NYSTATIN CRM 15GM TP SCH ×2 (09:00→21:00)
[2018-08-15] MEDS: LORATADINE 10 MG TABLET PO SCH (09:39)
[2018-08-15 19:33] VITALS: BP 155/84
[2018-08-15] MEDS: BENZTROPINE 1 MG TABLET PO SCH (19:55)
[2018-08-15] MEDS: TEMAZEPAM 15 MG CAPSULE PO SCH (19:55)
[2018-08-15] MEDS: SIMVASTATIN 10 MG TABLET PO SCH (19:55)
[2018-08-16] MEDS: ACETAMINOPHEN 325 MG TABLET PO PRN ×3 (05:28→19:38)
[2018-08-16] MEDS: LEVOTHYROXINE 112 MCG TABLET PO SCH (05:28)
[2018-08-16] MEDS: METOPROLOL TARTRATE 25 MG TABLET PO SCH ×2 (05:29→17:30)
[2018-08-16 07:10] VITALS: BP 143/83
[2018-08-16] MEDS: OXCARBAZEPINE 150 MG TABLET PO SCH ×2 (08:19→17:31)
[2018-08-16] MEDS: AMLODIPINE 5 MG TABLET PO SCH (08:19)
[2018-08-16] MEDS: SODIUM CHLORIDE 1 GM TABLET PO SCH ×3 (08:20→19:38)
[2018-08-16] MEDS: LORATADINE 10 MG TABLET PO SCH (08:20)
[2018-08-16] MEDS: VITAMIN E 400 UNITS CAPSULE PO SCH (08:20)
[2018-08-16] MEDS: LISINOPRIL 10 MG TABLET PO SCH ×2 (08:20→19:39)
[2018-08-16] MEDS: RISPERIDONE 1 MG TABLET PO SCH ×2 (08:20→19:39)
[2018-08-16] MEDS: SENNA/DOCUSATE TABLET PO SCH (08:26)
[2018-08-16] MEDS: METHYL SALICYLATE/MENTHOL CRM 85GM TP SCH ×2 (08:26→20:41)
[2018-08-16] MEDS: NYSTATIN CRM 15GM TP SCH ×2 (08:26→20:41)
[2018-08-16 11:26] VITALS: BP 114/73
[2018-08-16] MEDS: SIMVASTATIN 10 MG TABLET PO SCH (19:38)
[2018-08-16] MEDS: BENZTROPINE 1 MG TABLET PO SCH (19:39)
[2018-08-16] MEDS: TEMAZEPAM 15 MG CAPSULE PO SCH (19:39)
[2018-08-16 19:42] VITALS: BP_SYST 130; BP_SYST 173; BP_DIAS 72; BP_DIAS 75
[2018-08-17] MEDS: ACETAMINOPHEN 325 MG TABLET PO PRN ×2 (05:31→20:56)
[2018-08-17] MEDS: LEVOTHYROXINE 112 MCG TABLET PO SCH (05:31)
[2018-08-17] MEDS: METOPROLOL TARTRATE 25 MG TABLET PO SCH ×2 (05:31→17:00)
[2018-08-17 07:05] VITALS: BP 156/79
[2018-08-17] MEDS: RISPERIDONE 1 MG TABLET PO SCH ×2 (08:51→20:26)
[2018-08-17] MEDS: METHYL SALICYLATE/MENTHOL CRM 85GM TP SCH ×2 (08:51→20:47)
[2018-08-17] MEDS: SODIUM CHLORIDE 1 GM TABLET PO SCH ×3 (08:51→20:24)
[2018-08-17] MEDS: LORATADINE 10 MG TABLET PO SCH (08:51)
[2018-08-17] MEDS: VITAMIN E 400 UNITS CAPSULE PO SCH (08:51)
[2018-08-17] MEDS: AMLODIPINE 5 MG TABLET PO SCH (08:51)
[2018-08-17] MEDS: SENNA/DOCUSATE TABLET PO SCH (08:51)
[2018-08-17] MEDS: LISINOPRIL 10 MG TABLET PO SCH ×2 (08:52→20:25)
[2018-08-17] MEDS: OXCARBAZEPINE 150 MG TABLET PO SCH ×2 (08:52→17:00)
[2018-08-17] MEDS: NYSTATIN CRM 15GM TP SCH ×2 (08:52→21:00)
[2018-08-17 17:00] VITALS: BP 167/89
[2018-08-17 17:41] VITALS: BP 154/92
[2018-08-17 19:50] VITALS: BP 105/68
[2018-08-17] MEDS: BENZTROPINE 1 MG TABLET PO SCH (20:24)
[2018-08-17] MEDS: SIMVASTATIN 10 MG TABLET PO SCH (20:25)
[2018-08-17] MEDS: TEMAZEPAM 15 MG CAPSULE PO SCH (20:25)
[2018-08-18] MEDS: LEVOTHYROXINE 112 MCG TABLET PO SCH (05:04)
[2018-08-18] MEDS: ACETAMINOPHEN 325 MG TABLET PO PRN ×4 (05:04→20:06)
[2018-08-18] MEDS: METOPROLOL TARTRATE 25 MG TABLET PO SCH ×2 (05:04→17:08)
[2018-08-18 07:00] VITALS: BP 144/75
[2018-08-18] MEDS: NYSTATIN CRM 15GM TP SCH ×2 (09:00→20:06)
[2018-08-18] MEDS: AMLODIPINE 5 MG TABLET PO SCH (09:05)
[2018-08-18] MEDS: VITAMIN E 400 UNITS CAPSULE PO SCH (09:05)
[2018-08-18] MEDS: LISINOPRIL 10 MG TABLET PO SCH ×2 (09:06→20:06)
[2018-08-18] MEDS: LORATADINE 10 MG TABLET PO SCH (09:06)
[2018-08-18] MEDS: SENNA/DOCUSATE TABLET PO SCH (09:06)
[2018-08-18] MEDS: SODIUM CHLORIDE 1 GM TABLET PO SCH ×3 (09:06→20:05)
[2018-08-18] MEDS: RISPERIDONE 1 MG TABLET PO SCH ×2 (09:06→20:06)
[2018-08-18] MEDS: OXCARBAZEPINE 150 MG TABLET PO SCH ×2 (09:06→17:09)
[2018-08-18] MEDS: METHYL SALICYLATE/MENTHOL CRM 85GM TP SCH ×2 (09:07→20:07)
[2018-08-18 17:13] VITALS: BP 111/74
[2018-08-18 19:49] VITALS: BP 163/82
[2018-08-18] MEDS: BENZTROPINE 1 MG TABLET PO SCH (20:05)
[2018-08-18] MEDS: TEMAZEPAM 15 MG CAPSULE PO SCH (20:06)
[2018-08-18] MEDS: SIMVASTATIN 10 MG TABLET PO SCH (20:06)
[2018-08-19] MEDS: ACETAMINOPHEN 325 MG TABLET PO PRN ×2 (03:46→08:55)
[2018-08-19] MEDS: LEVOTHYROXINE 112 MCG TABLET PO SCH (05:54)
[2018-08-19] MEDS: METOPROLOL TARTRATE 25 MG TABLET PO SCH ×2 (05:55→17:26)
[2018-08-19 05:56] VITALS: BP 157/90
[2018-08-19 07:45] VITALS: BP 150/72
[2018-08-19] MEDS: LORATADINE 10 MG TABLET PO SCH (08:54)
[2018-08-19] MEDS: LISINOPRIL 10 MG TABLET PO SCH ×2 (08:54→19:54)
[2018-08-19] MEDS: OXCARBAZEPINE 150 MG TABLET PO SCH ×2 (08:54→17:25)
[2018-08-19] MEDS: AMLODIPINE 5 MG TABLET PO SCH (08:54)
[2018-08-19] MEDS: VITAMIN E 400 UNITS CAPSULE PO SCH (08:54)
[2018-08-19] MEDS: RISPERIDONE 1 MG TABLET PO SCH ×2 (08:54→19:55)
[2018-08-19] MEDS: SENNA/DOCUSATE TABLET PO SCH (08:55)
[2018-08-19] MEDS: SODIUM CHLORIDE 1 GM TABLET PO SCH ×3 (08:55→19:53)
[2018-08-19] MEDS: NYSTATIN CRM 15GM TP SCH ×2 (08:56→21:00)
[2018-08-19] MEDS: METHYL SALICYLATE/MENTHOL CRM 85GM TP SCH ×2 (08:57→21:00)
[2018-08-19 19:19] VITALS: BP 120/70
[2018-08-19] MEDS: TEMAZEPAM 15 MG CAPSULE PO SCH (19:53)
[2018-08-19] MEDS: SIMVASTATIN 10 MG TABLET PO SCH (19:53)
[2018-08-19] MEDS: BENZTROPINE 1 MG TABLET PO SCH (19:55)
[2018-08-20 05:19] VITALS: BP 119/72
[2018-08-20] MEDS: LEVOTHYROXINE 112 MCG TABLET PO SCH (05:50)
[2018-08-20] MEDS: METOPROLOL TARTRATE 25 MG TABLET PO SCH ×2 (05:50→17:00)
[2018-08-20] MEDS: ACETAMINOPHEN 325 MG TABLET PO PRN ×2 (05:51→20:16)
[2018-08-20 07:20] VITALS: BP 140/83
[2018-08-20] MEDS: METHYL SALICYLATE/MENTHOL CRM 85GM TP SCH ×2 (09:00→21:00)
[2018-08-20] MEDS: SENNA/DOCUSATE TABLET PO SCH (09:00)
[2018-08-20] MEDS: NYSTATIN CRM 15GM TP SCH ×2 (09:00→21:00)
[2018-08-20] MEDS: LISINOPRIL 10 MG TABLET PO SCH ×2 (09:28→20:14)
[2018-08-20] MEDS: RISPERIDONE 1 MG TABLET PO SCH ×2 (09:28→20:14)
[2018-08-20] MEDS: OXCARBAZEPINE 150 MG TABLET PO SCH ×2 (09:28→16:59)
[2018-08-20] MEDS: SODIUM CHLORIDE 1 GM TABLET PO SCH ×3 (09:28→20:15)
[2018-08-20] MEDS: LORATADINE 10 MG TABLET PO SCH (09:28)
[2018-08-20] MEDS: VITAMIN E 400 UNITS CAPSULE PO SCH (09:29)
[2018-08-20] MEDS: AMLODIPINE 5 MG TABLET PO SCH (09:29)
[2018-08-20] MEDS ORDERED: DIAZEPAM 5 MG TABLET ONE (12:25)
[2018-08-20] MEDS: DIAZEPAM 10 MG TABLET PO PRN (12:38)
[2018-08-20 16:47] VITALS: BP 167/98
[2018-08-20 19:44] VITALS: BP 120/74
[2018-08-20] MEDS: BENZTROPINE 1 MG TABLET PO SCH (20:13)
[2018-08-20] MEDS: TEMAZEPAM 15 MG CAPSULE PO SCH (20:14)
[2018-08-20] MEDS: SIMVASTATIN 10 MG TABLET PO SCH (20:18)
[2018-08-21 05:47] VITALS: BP 147/82
[2018-08-21] MEDS: METOPROLOL TARTRATE 25 MG TABLET PO SCH (05:59)
[2018-08-21] MEDS: LEVOTHYROXINE 112 MCG TABLET PO SCH (05:59)
[2018-08-21] MEDS: ACETAMINOPHEN 325 MG TABLET PO PRN (06:04)
[2018-08-21 07:15] VITALS: BP 156/96
[2018-08-21] MEDS: NYSTATIN CRM 15GM TP SCH (09:00)
[2018-08-21] MEDS: METHYL SALICYLATE/MENTHOL CRM 85GM TP SCH (09:00)
[2018-08-21] MEDS: LORATADINE 10 MG TABLET PO SCH (09:52)
[2018-08-21] MEDS: RISPERIDONE 1 MG TABLET PO SCH (09:53)
[2018-08-21] MEDS: LISINOPRIL 10 MG TABLET PO SCH (09:53)
[2018-08-21] MEDS: AMLODIPINE 5 MG TABLET PO SCH (09:53)
[2018-08-21] MEDS: SENNA/DOCUSATE TABLET PO SCH (09:53)
[2018-08-21] MEDS: SODIUM CHLORIDE 1 GM TABLET PO SCH (09:54)
[2018-08-21] MEDS: VITAMIN E 400 UNITS CAPSULE PO SCH (09:54)
[2018-08-21] MEDS: OXCARBAZEPINE 150 MG TABLET PO SCH (09:54)
== END 2018-08-21 10:23 | disposition home or self-care (01) | DRG 885 ==
LOC: 3E 18:48
PROVIDERS: ADMIT Psychiatry & Neurology Psychosomatic Medicine; ATTEND Psychiatry & Neurology Psychosomatic Medicine
DX: F20.0 Paranoid schizophrenia (principal); E87.1 Hypo-osmolality and hyponatremia; F01.51 Vascular dementia, unspecified severity, with behavioral disturbance; E03.9 Hypothyroidism, unspecified; E11.9 Type 2 diabetes mellitus without complications; E66.9 Obesity, unspecified; Z68.38 Body mass index [BMI] 38.0-38.9, adult; E78.5 Hyperlipidemia, unspecified; F17.210 Nicotine dependence, cigarettes, uncomplicated; G47.00 Insomnia, unspecified; I11.9 Hypertensive heart disease without heart failure; J44.9 Chronic obstructive pulmonary disease, unspecified; K59.00 Constipation, unspecified; M19.90 Unspecified osteoarthritis, unspecified site; Z79.899 Other long term (current) drug therapy; Z83.3 Family history of diabetes mellitus; Z80.9 Family history of malignant neoplasm, unspecified; F41.9 Anxiety disorder, unspecified; Z59.0 Homelessness
CPT/HCPCS: 36415; 80048; 80061; 82962; 83930; 83935; 84300; 85025; 86480; 92522-GN; 92523-GN; J2060

== ENCOUNTER 2018-09-15 16:11 | Observation (INO) | payer MEDICAID ==
[~2018-09-15] VITALS: Ht 144.8 cm; Wt 69.0 kg
[~2018-09-15 16:11] MED LIST changes: +SENN-177 PO; -SENN1TAB8 PO
--- NOTE | 2018-09-15 17:34 | NUR ---
TO RM 21 FROM LOBBY Addendum: 09/15/18 at 1847 by CWHELCHEL AMBULATED WITH USE OF PULIDO TO BATHROOM. STEADY GAIT
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
--- NOTE | 2018-09-15 19:00 | NUR ---
PT AMBULATED TO BATHROOM WITH USE OF PULIDO, STEADY GAIT
[2018-09-15 19:05] LABS: BASOPHILS # (AUTO) 0.02 x10^3/uL (0-0.1); BASOPHILS % (AUTO) 0 % (0-1); EOSINOPHILS # (AUTO) 0.04 x10^3/uL (0-0.4); EOSINOPHILS % (AUTO) 1 % (1-7); LYMPHOCYTES % (AUTO) 18 % (22-44); MD NO; MEAN CORPUSCULAR HEMOGLOBIN 32.2 pg (27.0-34.8); MEAN CORPUSCULAR HGB CONC 34.1 g/dL (32.4-35.8); MEAN CORPUSCULAR VOLUME 94.4 fL (80-100); MEAN PLATELET VOLUME 7.1 fL (7.4-10.4); MONOCYTES # (AUTO) 0.58 x10^3/uL (0.2-0.8); MONOCYTES % (AUTO) 8 % (2-9); NEUTROPHILS # (AUTO) 5.33 x10^3/uL (1.8-6.8); NEUTROPHILS % (AUTO) 73 % (42-75); PLATELET COUNT 259 x10^3/uL (130-400); RED BLOOD COUNT 4.55 x10^6/uL (3.82-5.3); RED CELL DISTRIBUTION WIDTH 13.9 % (9.6-15.2)
[2018-09-15 19:07] LABS: ALBUMIN 3.7 g/dL (3.4-5.0); ANION GAP 5 mmol/L (5-15); CALCIUM 9.6 mg/dL (8.5-10.1); CHLORIDE 104 mmol/L (98-107); CREATININE 0.89 mg/dL (0.55-1.02)
[2018-09-15 19:08] LABS: ACETAMINOPHEN < 2 mcg/mL (10-30); SALICYLATE LEVEL < 1.7 mg/dL (2.8-20.0)
[2018-09-15 19:16] LABS: AMPHETAMINE SCREEN, URINE Negative (Negative); BARBITURATE SCREEN, URINE Negative (Negative); BENZODIAZEPINE SCREEN, URINE Negative (Negative); CANNABINOID SCREEN, URINE Negative (Negative); COCAINE SCREEN, URINE Negative (Negative); METHADONE SCREEN, URINE Negative (Negative); OPIATE SCREEN, URINE Negative (Negative)
--- NOTE | 2018-09-15 20:33 | NUR ---
AGAIN ASSISTED TO BATHROOM WITH USE OF CANE. AMBULATES WITHOUT SOB NOTED
--- NOTE | 2018-09-15 20:54 | NUR ---
PT REPORT FROM KILEY BOSCH. THIS RN TO ASSUME CARE OF PT.
--- NOTE | 2018-09-15 21:22 | NUR ---
PT GIVEN WATER. AWAITING HOSPITALIST FOR ADMIT.
[2018-09-15] MEDS ORDERED: LABETALOL 5MG/ML, 20ML IVPush PRN ×2 (23:00→23:30)
[2018-09-15] MEDS ORDERED: LIDODERM 5% PATCH TD PRN (23:30)
[2018-09-15] MEDS ORDERED: DOCUSATE 100 MG CAPSULE PO PRN (23:30)
[2018-09-15] MEDS ORDERED: ONDANSETRON ODT 4 MG PO PRN (23:30)
[2018-09-15] MEDS: ENOXAPARIN 40 MG/0.4 ML SQ SCH (23:40)
--- NOTE | 2018-09-15 23:41 | NUR ---
PT REFUSED LOVENOX. STATES "I WONT BE IN BED FOR THAT LONG."
[2018-09-16 00:35] VITALS: BP 153/99
[2018-09-16 01:41] LABS: T4 (THYROXINE) 12.4 mcg/dL (4.8-13.9); THYROID STIMULATING HORMONE 4.37 mIU/L (0.358-3.740)
[2018-09-16 07:38] VITALS: BP 144/86
[2018-09-16] MEDS: METHYL SALICYLATE/MENTHOL CRM 85GM TP SCH ×2 (09:00→20:14)
[2018-09-16] MEDS: AMLODIPINE 5 MG TABLET PO SCH (11:21)
[2018-09-16] MEDS: RISPERIDONE 1 MG TAB.RAPDIS PO SCH (11:21)
[2018-09-16] MEDS: METOPROLOL TARTRATE 25 MG TABLET PO SCH ×2 (11:21→18:00)
[2018-09-16] MEDS: LORATADINE 10 MG TABLET PO SCH (11:21)
[2018-09-16] MEDS: OXCARBAZEPINE 150 MG TABLET PO SCH ×2 (11:22→20:12)
[2018-09-16] MEDS: LISINOPRIL 10 MG TABLET PO SCH (11:22)
[2018-09-16] MEDS ORDERED: RISP1TAB45 PO (13:00)
[2018-09-16] MEDS ORDERED: RISP-2 PO (13:00)
[2018-09-16 14:23] VITALS: BP 123/77
[2018-09-16] MEDS: TEMAZEPAM 15 MG CAPSULE PO SCH (20:11)
[2018-09-16] MEDS: SIMVASTATIN 10 MG TABLET PO SCH (20:11)
[2018-09-16] MEDS: RISPERIDONE 1 MG TABLET PO SCH (20:12)
[2018-09-16] MEDS: ENOXAPARIN 40 MG/0.4 ML SQ SCH (20:14)
[2018-09-17 02:09] VITALS: BP 141/84
[2018-09-17] MEDS: ACETAMINOPHEN 325 MG TABLET PO PRN (02:28)
[2018-09-17] MEDS: METOPROLOL TARTRATE 25 MG TABLET PO SCH ×2 (05:25→19:37)
[2018-09-17] MEDS: LEVOTHYROXINE 112 MCG TABLET PO SCH (05:26)
[2018-09-17 07:15] VITALS: BP 120/83
[2018-09-17] MEDS: OXCARBAZEPINE 150 MG TABLET PO SCH ×2 (08:58→20:46)
[2018-09-17] MEDS: LORATADINE 10 MG TABLET PO SCH (08:58)
[2018-09-17] MEDS: AMLODIPINE 5 MG TABLET PO SCH (08:59)
[2018-09-17] MEDS: LISINOPRIL 10 MG TABLET PO SCH (08:59)
[2018-09-17] MEDS: RISPERIDONE 1 MG TAB.RAPDIS PO SCH (08:59)
[2018-09-17] MEDS: METHYL SALICYLATE/MENTHOL CRM 85GM TP SCH ×2 (08:59→21:00)
[2018-09-17 12:38] VITALS: BP 149/85
[2018-09-17 20:11] VITALS: BP 121/76
[2018-09-17] MEDS: RISPERIDONE 1 MG TABLET PO SCH (20:45)
[2018-09-17] MEDS: TEMAZEPAM 15 MG CAPSULE PO SCH (20:46)
[2018-09-17] MEDS: SIMVASTATIN 10 MG TABLET PO SCH (20:46)
[2018-09-18 03:45] VITALS: BP 138/75
[2018-09-18] MEDS: ENOXAPARIN 40 MG/0.4 ML SQ SCH (05:09)
[2018-09-18] MEDS: LEVOTHYROXINE 112 MCG TABLET PO SCH (06:08)
[2018-09-18] MEDS: METOPROLOL TARTRATE 25 MG TABLET PO SCH ×2 (06:08→17:08)
[2018-09-18 06:37] VITALS: BP 151/83
[2018-09-18] MEDS: METHYL SALICYLATE/MENTHOL CRM 85GM TP SCH ×2 (07:42→20:21)
[2018-09-18] MEDS: RISPERIDONE 1 MG TAB.RAPDIS PO SCH (10:05)
[2018-09-18] MEDS: LISINOPRIL 10 MG TABLET PO SCH (10:05)
[2018-09-18] MEDS: AMLODIPINE 5 MG TABLET PO SCH (10:05)
[2018-09-18] MEDS: LORATADINE 10 MG TABLET PO SCH (10:05)
[2018-09-18] MEDS: OXCARBAZEPINE 150 MG TABLET PO SCH ×2 (10:05→20:21)
[2018-09-18 12:25] VITALS: BP 177/104
[2018-09-18] MEDS: ACETAMINOPHEN 325 MG TABLET PO PRN (17:04)
[2018-09-18] MEDS: DIAZEPAM 5 MG TABLET PO PRN (17:08)
[2018-09-18 18:41] VITALS: BP 120/79
[2018-09-18] MEDS: SIMVASTATIN 10 MG TABLET PO SCH (20:20)
[2018-09-18] MEDS: RISPERIDONE 1 MG TABLET PO SCH (20:20)
[2018-09-18] MEDS: TEMAZEPAM 15 MG CAPSULE PO SCH (20:20)
[2018-09-19 00:34] VITALS: BP 119/72
[2018-09-19] MEDS: ENOXAPARIN 40 MG/0.4 ML SQ SCH (04:13)
[2018-09-19] MEDS: METOPROLOL TARTRATE 25 MG TABLET PO SCH ×2 (06:07→18:01)
[2018-09-19] MEDS: LEVOTHYROXINE 112 MCG TABLET PO SCH (06:07)
[2018-09-19 06:37] VITALS: BP 142/82
[2018-09-19] MEDS: RISPERIDONE 1 MG TAB.RAPDIS PO SCH (08:43)
[2018-09-19] MEDS: LISINOPRIL 10 MG TABLET PO SCH (08:43)
[2018-09-19] MEDS: AMLODIPINE 5 MG TABLET PO SCH (08:43)
[2018-09-19] MEDS: LORATADINE 10 MG TABLET PO SCH (08:43)
[2018-09-19] MEDS: OXCARBAZEPINE 150 MG TABLET PO SCH ×2 (08:43→20:55)
[2018-09-19] MEDS: METHYL SALICYLATE/MENTHOL CRM 85GM TP SCH ×2 (08:44→20:55)
[2018-09-19 13:15] VITALS: BP 142/84
[2018-09-19 18:32] VITALS: BP 163/85
[2018-09-19] MEDS: RISPERIDONE 1 MG TABLET PO SCH (20:55)
[2018-09-19] MEDS: TEMAZEPAM 15 MG CAPSULE PO SCH (20:55)
[2018-09-19] MEDS: SIMVASTATIN 10 MG TABLET PO SCH (20:55)
[2018-09-20 01:10] VITALS: BP 131/82
[2018-09-20] MEDS: ENOXAPARIN 40 MG/0.4 ML SQ SCH (04:57)
[2018-09-20] MEDS: METOPROLOL TARTRATE 25 MG TABLET PO SCH ×2 (05:01→18:51)
[2018-09-20] MEDS: LEVOTHYROXINE 112 MCG TABLET PO SCH (05:01)
[2018-09-20 06:53] VITALS: BP 140/82
[2018-09-20] MEDS: METHYL SALICYLATE/MENTHOL CRM 85GM TP SCH ×2 (10:26→21:00)
[2018-09-20] MEDS: LORATADINE 10 MG TABLET PO SCH (10:47)
[2018-09-20] MEDS: OXCARBAZEPINE 150 MG TABLET PO SCH ×2 (10:47→19:56)
[2018-09-20] MEDS: LISINOPRIL 10 MG TABLET PO SCH (10:47)
[2018-09-20] MEDS: AMLODIPINE 5 MG TABLET PO SCH (10:47)
[2018-09-20] MEDS: RISPERIDONE 1 MG TAB.RAPDIS PO SCH (10:47)
[2018-09-20 12:41] VITALS: BP 141/83
[2018-09-20] MEDS ORDERED: POLYETHYLENE GLYCOL 17 GM PACKET PO PRN (16:30)
[2018-09-20] MEDS: TEMAZEPAM 15 MG CAPSULE PO SCH (19:56)
[2018-09-20] MEDS: DIAZEPAM 5 MG TABLET PO PRN (19:56)
[2018-09-20] MEDS: RISPERIDONE 1 MG TABLET PO SCH (19:56)
[2018-09-20] MEDS: SIMVASTATIN 10 MG TABLET PO SCH (19:56)
[2018-09-20] MEDS: DOCUSATE 100 MG CAPSULE PO SCH (19:56)
[2018-09-20 20:15] VITALS: BP 138/78
[2018-09-21 00:45] VITALS: BP 140/83
[2018-09-21] MEDS: ENOXAPARIN 40 MG/0.4 ML SQ SCH (05:30)
[2018-09-21] MEDS: METOPROLOL TARTRATE 25 MG TABLET PO SCH ×2 (05:30→18:19)
[2018-09-21] MEDS: LEVOTHYROXINE 112 MCG TABLET PO SCH (05:30)
[2018-09-21 06:20] LABS: MICROSCOPIC AUTO
[2018-09-21 06:21] VITALS: BP 145/83
[2018-09-21 06:31] LABS: CULTURE INDICATED? YES
[2018-09-21] MEDS: LISINOPRIL 10 MG TABLET PO SCH (07:58)
[2018-09-21] MEDS: AMLODIPINE 5 MG TABLET PO SCH (07:58)
[2018-09-21] MEDS: RISPERIDONE 1 MG TAB.RAPDIS PO SCH (07:59)
[2018-09-21] MEDS: LORATADINE 10 MG TABLET PO SCH (07:59)
[2018-09-21] MEDS: DOCUSATE 100 MG CAPSULE PO SCH ×2 (07:59→20:27)
[2018-09-21] MEDS: OXCARBAZEPINE 150 MG TABLET PO SCH ×2 (07:59→20:28)
[2018-09-21] MEDS: METHYL SALICYLATE/MENTHOL CRM 85GM TP SCH ×2 (08:00→21:00)
[2018-09-21] MEDS: ACETAMINOPHEN 325 MG TABLET PO PRN ×2 (10:15→23:24)
[2018-09-21 12:06] VITALS: BP 135/77
[2018-09-21 18:49] VITALS: BP 136/65
[2018-09-21] MEDS: SIMVASTATIN 10 MG TABLET PO SCH (20:27)
[2018-09-21] MEDS: TEMAZEPAM 15 MG CAPSULE PO SCH (20:28)
[2018-09-21] MEDS: RISPERIDONE 1 MG TABLET PO SCH (20:28)
[2018-09-22 01:44] VITALS: BP 140/71
[2018-09-22 05:37] LABS: BASOPHILS # (AUTO) 0.04 x10^3/uL (0-0.1); BASOPHILS % (AUTO) 0 % (0-1); EOSINOPHILS # (AUTO) 0.21 x10^3/uL (0-0.4); EOSINOPHILS % (AUTO) 2 % (1-7); LYMPHOCYTES # (AUTO) 2.74 x10^3/uL (1-3.4); LYMPHOCYTES % (AUTO) 31 % (22-44); MD NO; MEAN CORPUSCULAR HEMOGLOBIN 32.2 pg (27.0-34.8); MEAN CORPUSCULAR HGB CONC 34.1 g/dL (32.4-35.8); MEAN CORPUSCULAR VOLUME 94.4 fL (80-100); MEAN PLATELET VOLUME 7.4 fL (7.4-10.4); MONOCYTES # (AUTO) 0.66 x10^3/uL (0.2-0.8); MONOCYTES % (AUTO) 8 % (2-9); NEUTROPHILS % (AUTO) 59 % (42-75); PLATELET COUNT 218 x10^3/uL (130-400); RED BLOOD COUNT 4.23 x10^6/uL (3.82-5.3); RED CELL DISTRIBUTION WIDTH 13.1 % (9.6-15.2)
[2018-09-22 05:43] LABS: ANION GAP 6 mmol/L (5-15); CALCIUM 8.3 mg/dL (8.5-10.1); CHLORIDE 84 mmol/L (98-107); CREATININE 0.71 mg/dL (0.55-1.02)
[2018-09-22] MEDS: ENOXAPARIN 40 MG/0.4 ML SQ SCH (06:43)
[2018-09-22] MEDS: METOPROLOL TARTRATE 25 MG TABLET PO SCH ×2 (06:43→17:05)
[2018-09-22] MEDS: LEVOTHYROXINE 112 MCG TABLET PO SCH (06:43)
[2018-09-22 07:07] VITALS: BP 139/83
[2018-09-22] MEDS: DOCUSATE 100 MG CAPSULE PO SCH ×2 (07:48→19:50)
[2018-09-22] MEDS: OXCARBAZEPINE 150 MG TABLET PO SCH ×2 (07:48→19:50)
[2018-09-22] MEDS: AMLODIPINE 5 MG TABLET PO SCH (07:48)
[2018-09-22] MEDS: LORATADINE 10 MG TABLET PO SCH (07:48)
[2018-09-22] MEDS: METHYL SALICYLATE/MENTHOL CRM 85GM TP SCH ×2 (07:49→19:53)
[2018-09-22] MEDS: RISPERIDONE 1 MG TAB.RAPDIS PO SCH (07:49)
[2018-09-22] MEDS: LISINOPRIL 10 MG TABLET PO SCH (07:49)
[2018-09-22 09:46] LABS: ANION GAP 5 mmol/L (5-15); CALCIUM 8.3 mg/dL (8.5-10.1); CHLORIDE 86 mmol/L (98-107); CREATININE 0.81 mg/dL (0.55-1.02)
[2018-09-22] MEDS ORDERED: FUROSEMIDE 40 MG/4 ML IV ONE (11:00)
[2018-09-22 11:56] LABS: ALANINE AMINOTRANSFERASE 18 U/L (12-78); ALBUMIN 3.1 g/dL (3.4-5.0)
[2018-09-22 11:59] LABS: ALKALINE PHOSPHATASE 98 U/L (45-117); BILIRUBIN,TOTAL 0.3 mg/dL (0.2-1.0); TOTAL PROTEIN 6.7 g/dL (6.4-8.2)
[2018-09-22 12:01] LABS: BILIRUBIN, DIRECT < 0.1 mg/dL (0.1-0.2); BILIRUBIN,INDIRECT 0.2 mg/dL (0.0-2.0)
[2018-09-22 13:45] VITALS: BP 124/75
[2018-09-22 15:32] LABS: ANION GAP 3 mmol/L (5-15); CALCIUM 8.8 mg/dL (8.5-10.1); CHLORIDE 87 mmol/L (98-107); CREATININE 0.82 mg/dL (0.55-1.02)
[2018-09-22 15:54] LABS: SODIUM,URINE RANDOM 55 mmol/L
[2018-09-22] MEDS: FUROSEMIDE 20 MG TABLET PO SCH (17:05)
[2018-09-22 17:11] LABS: OSMOLALITY,URINE 225 mOsm/kg (500-850)
[2018-09-22 19:05] VITALS: BP 131/80
[2018-09-22] MEDS: TEMAZEPAM 15 MG CAPSULE PO SCH (19:49)
[2018-09-22] MEDS: RISPERIDONE 1 MG TABLET PO SCH (19:49)
[2018-09-22] MEDS: ACETAMINOPHEN 325 MG TABLET PO PRN (19:50)
[2018-09-22] MEDS: SIMVASTATIN 10 MG TABLET PO SCH (19:50)
[2018-09-22 20:18] LABS: ANION GAP 7 mmol/L (5-15); CHLORIDE 89 mmol/L (98-107); CREATININE 0.92 mg/dL (0.55-1.02)
[2018-09-23 02:30] VITALS: BP 86/57
[2018-09-23 03:06] VITALS: BP 108/67
[2018-09-23 05:33] VITALS: BP 139/84
[2018-09-23] MEDS: METOPROLOL TARTRATE 25 MG TABLET PO SCH ×2 (05:35→17:02)
[2018-09-23] MEDS: LEVOTHYROXINE 112 MCG TABLET PO SCH (05:35)
[2018-09-23] MEDS: ENOXAPARIN 40 MG/0.4 ML SQ SCH (05:36)
[2018-09-23 06:55] VITALS: BP 137/77
[2018-09-23] MEDS: RISPERIDONE 1 MG TAB.RAPDIS PO SCH (07:43)
[2018-09-23] MEDS: LORATADINE 10 MG TABLET PO SCH (07:43)
[2018-09-23] MEDS: LISINOPRIL 10 MG TABLET PO SCH (07:44)
[2018-09-23] MEDS: DOCUSATE 100 MG CAPSULE PO SCH ×2 (07:44→21:17)
[2018-09-23] MEDS: OXCARBAZEPINE 150 MG TABLET PO SCH ×2 (07:44→21:17)
[2018-09-23] MEDS: FUROSEMIDE 20 MG TABLET PO SCH (07:44)
[2018-09-23] MEDS: AMLODIPINE 5 MG TABLET PO SCH (07:44)
[2018-09-23] MEDS: METHYL SALICYLATE/MENTHOL CRM 85GM TP SCH ×2 (07:44→21:00)
[2018-09-23] MEDS: ACETAMINOPHEN 325 MG TABLET PO PRN (07:54)
[2018-09-23 12:04] VITALS: BP 126/70
[2018-09-23 19:12] VITALS: BP 132/80
[2018-09-23] MEDS: TEMAZEPAM 15 MG CAPSULE PO SCH (21:17)
[2018-09-23] MEDS: RISPERIDONE 1 MG TABLET PO SCH (21:17)
[2018-09-23] MEDS: SIMVASTATIN 10 MG TABLET PO SCH (21:17)
[2018-09-24] MEDS: ACETAMINOPHEN 325 MG TABLET PO PRN ×2 (01:24→20:31)
[2018-09-24 01:25] VITALS: BP 127/88
[2018-09-24 05:05] LABS: BASOPHILS # (AUTO) 0.03 x10^3/uL (0-0.1); BASOPHILS % (AUTO) 0 % (0-1); EOSINOPHILS # (AUTO) 0.08 x10^3/uL (0-0.4); EOSINOPHILS % (AUTO) 1 % (1-7); LYMPHOCYTES # (AUTO) 2.21 x10^3/uL (1-3.4); LYMPHOCYTES % (AUTO) 29 % (22-44); MD NO; MEAN CORPUSCULAR VOLUME 94.1 fL (80-100); MEAN PLATELET VOLUME 7.5 fL (7.4-10.4); MONOCYTES # (AUTO) 0.62 x10^3/uL (0.2-0.8); MONOCYTES % (AUTO) 8 % (2-9); NEUTROPHILS # (AUTO) 4.73 x10^3/uL (1.8-6.8); NEUTROPHILS % (AUTO) 62 % (42-75); PLATELET COUNT 235 x10^3/uL (130-400); RED BLOOD COUNT 4.31 x10^6/uL (3.82-5.3); RED CELL DISTRIBUTION WIDTH 13.3 % (9.6-15.2)
[2018-09-24 05:20] LABS: ANION GAP 5 mmol/L (5-15); CALCIUM 8.6 mg/dL (8.5-10.1); CHLORIDE 89 mmol/L (98-107)
[2018-09-24 05:23] LABS: CREATININE 0.89 mg/dL (0.55-1.02)
[2018-09-24] MEDS: LEVOTHYROXINE 112 MCG TABLET PO SCH (05:49)
[2018-09-24] MEDS: METOPROLOL TARTRATE 25 MG TABLET PO SCH (05:49)
[2018-09-24] MEDS: ENOXAPARIN 40 MG/0.4 ML SQ SCH (05:49)
[2018-09-24 06:48] VITALS: BP 113/66
[2018-09-24] MEDS: LORATADINE 10 MG TABLET PO SCH (08:15)
[2018-09-24] MEDS: DOCUSATE 100 MG CAPSULE PO SCH ×2 (08:15→20:31)
[2018-09-24] MEDS: RISPERIDONE 1 MG TAB.RAPDIS PO SCH (08:15)
[2018-09-24] MEDS: OXCARBAZEPINE 150 MG TABLET PO SCH ×2 (08:15→20:30)
[2018-09-24] MEDS: LISINOPRIL 10 MG TABLET PO SCH (08:15)
[2018-09-24] MEDS: METHYL SALICYLATE/MENTHOL CRM 85GM TP SCH ×2 (09:00→20:32)
[2018-09-24] MEDS: SODIUM CHLORIDE 0.9% 1,000 ML IV SCH (14:34)
[2018-09-24 14:43] VITALS: BP 138/84
[2018-09-24] MEDS: CARVEDILOL 6.25 MG TABLET PO SCH (18:00)
[2018-09-24 20:14] VITALS: BP 139/80
[2018-09-24] MEDS: SIMVASTATIN 10 MG TABLET PO SCH (20:31)
[2018-09-24] MEDS: TEMAZEPAM 15 MG CAPSULE PO SCH (20:31)
[2018-09-24] MEDS: RISPERIDONE 1 MG TABLET PO SCH (20:32)
[2018-09-25 00:08] VITALS: BP 131/68
[2018-09-25] MEDS: ACETAMINOPHEN 325 MG TABLET PO PRN (03:08)
[2018-09-25 04:13] VITALS: BP 112/71
[2018-09-25 05:12] LABS: ANION GAP 5 mmol/L (5-15); CALCIUM 8.5 mg/dL (8.5-10.1); CHLORIDE 87 mmol/L (98-107)
[2018-09-25 05:14] LABS: CREATININE 0.86 mg/dL (0.55-1.02)
[2018-09-25] MEDS: CARVEDILOL 6.25 MG TABLET PO SCH ×2 (06:10→18:07)
[2018-09-25] MEDS: LEVOTHYROXINE 112 MCG TABLET PO SCH (06:11)
[2018-09-25] MEDS: ENOXAPARIN 40 MG/0.4 ML SQ SCH (06:11)
[2018-09-25] MEDS: SODIUM CHLORIDE 0.9% 1,000 ML IV SCH ×2 (06:30→20:44)
[2018-09-25 06:38] VITALS: BP 137/81
[2018-09-25] MEDS: OXCARBAZEPINE 150 MG TABLET PO SCH ×2 (08:38→20:42)
[2018-09-25] MEDS: RISPERIDONE 1 MG TAB.RAPDIS PO SCH (08:38)
[2018-09-25] MEDS: DOCUSATE 100 MG CAPSULE PO SCH ×2 (08:38→20:42)
[2018-09-25] MEDS: LORATADINE 10 MG TABLET PO SCH (08:38)
[2018-09-25] MEDS: METHYL SALICYLATE/MENTHOL CRM 85GM TP SCH ×2 (08:41→20:44)
[2018-09-25] MEDS: LISINOPRIL 10 MG TABLET PO SCH (08:41)
[2018-09-25 10:45] LABS: TROPONIN I < 0.015 ng/mL (0.000-0.045)
[2018-09-25 13:42] VITALS: BP 130/76
[2018-09-25 19:06] VITALS: BP 146/76
[2018-09-25] MEDS: TEMAZEPAM 15 MG CAPSULE PO SCH (20:42)
[2018-09-25] MEDS: SIMVASTATIN 10 MG TABLET PO SCH (20:42)
[2018-09-25] MEDS: RISPERIDONE 1 MG TABLET PO SCH (20:42)
[2018-09-26] MEDS: ACETAMINOPHEN 325 MG TABLET PO PRN ×2 (00:32→14:16)
[2018-09-26 00:43] VITALS: BP 142/81
[2018-09-26] MEDS: ENOXAPARIN 40 MG/0.4 ML SQ SCH (05:21)
[2018-09-26] MEDS: LEVOTHYROXINE 112 MCG TABLET PO SCH (05:21)
[2018-09-26] MEDS: CARVEDILOL 6.25 MG TABLET PO SCH ×2 (05:21→18:34)
[2018-09-26 05:34] LABS: ANION GAP 3 mmol/L (5-15); CALCIUM 8.7 mg/dL (8.5-10.1); CHLORIDE 92 mmol/L (98-107)
[2018-09-26 05:35] LABS: CREATININE 0.74 mg/dL (0.55-1.02)
[2018-09-26 06:40] VITALS: BP 146/82
[2018-09-26] MEDS: DOCUSATE 100 MG CAPSULE PO SCH ×2 (09:36→20:08)
[2018-09-26] MEDS: AMLODIPINE 2.5 MG TABLET PO SCH (09:37)
[2018-09-26] MEDS: OXCARBAZEPINE 150 MG TABLET PO SCH ×2 (09:37→20:07)
[2018-09-26] MEDS: LISINOPRIL 10 MG TABLET PO SCH (09:37)
[2018-09-26] MEDS: RISPERIDONE 1 MG TAB.RAPDIS PO SCH (09:37)
[2018-09-26] MEDS: LORATADINE 10 MG TABLET PO SCH (09:37)
[2018-09-26] MEDS: METHYL SALICYLATE/MENTHOL CRM 85GM TP SCH ×2 (09:37→20:08)
[2018-09-26 13:40] VITALS: BP 142/64
[2018-09-26] MEDS: SODIUM CHLORIDE 0.9% 1,000 ML IV SCH (18:34)
[2018-09-26 19:30] VITALS: BP 99/62
[2018-09-26] MEDS: TEMAZEPAM 15 MG CAPSULE PO SCH (20:05)
[2018-09-26] MEDS: RISPERIDONE 1 MG TABLET PO SCH (20:05)
[2018-09-26] MEDS: SIMVASTATIN 10 MG TABLET PO SCH (20:08)
[2018-09-27 02:22] VITALS: BP 134/70
[2018-09-27] MEDS: ENOXAPARIN 40 MG/0.4 ML SQ SCH (05:00)
[2018-09-27] MEDS: LEVOTHYROXINE 112 MCG TABLET PO SCH (05:00)
[2018-09-27] MEDS: CARVEDILOL 6.25 MG TABLET PO SCH ×2 (05:01→18:27)
[2018-09-27 05:07] LABS: ANION GAP 2 mmol/L (5-15); CALCIUM 8.6 mg/dL (8.5-10.1); CHLORIDE 97 mmol/L (98-107); CREATININE 0.98 mg/dL (0.55-1.02)
[2018-09-27] MEDS: METHYL SALICYLATE/MENTHOL CRM 85GM TP SCH ×2 (08:20→20:17)
[2018-09-27] MEDS: AMLODIPINE 2.5 MG TABLET PO SCH (08:33)
[2018-09-27] MEDS: DOCUSATE 100 MG CAPSULE PO SCH ×2 (08:34→20:16)
[2018-09-27] MEDS: ACETAMINOPHEN 325 MG TABLET PO PRN ×2 (08:34→21:05)
[2018-09-27] MEDS: LISINOPRIL 10 MG TABLET PO SCH (08:34)
[2018-09-27] MEDS: OXCARBAZEPINE 150 MG TABLET PO SCH ×2 (08:34→20:17)
[2018-09-27] MEDS: RISPERIDONE 1 MG TAB.RAPDIS PO SCH (08:34)
[2018-09-27] MEDS: LORATADINE 10 MG TABLET PO SCH (08:34)
[2018-09-27] MEDS: SODIUM CHLORIDE 0.9% 1,000 ML IV SCH (08:36)
[2018-09-27 09:21] VITALS: BP 143/83
[2018-09-27 14:00] VITALS: BP 172/88
[2018-09-27] MEDS ORDERED: RISPERIDONE IM SCH (15:30)
[2018-09-27 18:49] VITALS: BP 154/81
[2018-09-27] MEDS: TEMAZEPAM 15 MG CAPSULE PO SCH (20:16)
[2018-09-27] MEDS: SIMVASTATIN 10 MG TABLET PO SCH (20:17)
[2018-09-27] MEDS: RISPERIDONE 1 MG TABLET PO SCH (20:17)
[2018-09-28 00:39] VITALS: BP 154/81
[2018-09-28] MEDS: SODIUM CHLORIDE 0.9% 1,000 ML IV SCH ×2 (01:18→17:44)
[2018-09-28] MEDS: ACETAMINOPHEN 325 MG TABLET PO PRN ×3 (05:06→17:44)
[2018-09-28] MEDS: ENOXAPARIN 40 MG/0.4 ML SQ SCH (05:07)
[2018-09-28] MEDS: CARVEDILOL 6.25 MG TABLET PO SCH ×2 (05:07→17:44)
[2018-09-28] MEDS: LEVOTHYROXINE 112 MCG TABLET PO SCH (05:08)
[2018-09-28 06:43] VITALS: BP 172/118
[2018-09-28 07:03] VITALS: BP 129/82
[2018-09-28] MEDS: METHYL SALICYLATE/MENTHOL CRM 85GM TP SCH ×2 (07:58→21:00)
[2018-09-28] MEDS: LORATADINE 10 MG TABLET PO SCH (08:01)
[2018-09-28] MEDS: DOCUSATE 100 MG CAPSULE PO SCH ×2 (08:01→20:36)
[2018-09-28] MEDS: LISINOPRIL 10 MG TABLET PO SCH (08:02)
[2018-09-28] MEDS: OXCARBAZEPINE 150 MG TABLET PO SCH ×2 (08:02→20:35)
[2018-09-28] MEDS: RISPERIDONE 1 MG TAB.RAPDIS PO SCH (08:02)
[2018-09-28] MEDS: AMLODIPINE 2.5 MG TABLET PO SCH (08:02)
[2018-09-28 12:34] VITALS: BP 136/85
[2018-09-28] MEDS ORDERED: ARTIFICIAL TEARS 15 DROP/ML BOTTLE EACHEYE PRN (15:00)
[2018-09-28 19:28] VITALS: BP 135/81
[2018-09-28] MEDS: TEMAZEPAM 15 MG CAPSULE PO SCH (20:35)
[2018-09-28] MEDS: SIMVASTATIN 10 MG TABLET PO SCH (20:36)
[2018-09-28] MEDS: RISPERIDONE 1 MG TABLET PO SCH (20:36)
[2018-09-29 01:11] VITALS: BP 130/72
[2018-09-29 05:35] LABS: CHLORIDE 94 mmol/L (98-107)
[2018-09-29 05:42] LABS: ANION GAP 4 mmol/L (5-15); CALCIUM 8.1 mg/dL (8.5-10.1); CREATININE 0.88 mg/dL (0.55-1.02)
[2018-09-29] MEDS: ENOXAPARIN 40 MG/0.4 ML SQ SCH (05:58)
[2018-09-29] MEDS: CARVEDILOL 6.25 MG TABLET PO SCH ×2 (05:58→18:23)
[2018-09-29] MEDS: LEVOTHYROXINE 112 MCG TABLET PO SCH (05:59)
[2018-09-29 08:04] VITALS: BP 123/78
[2018-09-29] MEDS: METHYL SALICYLATE/MENTHOL CRM 85GM TP SCH ×2 (08:47→21:08)
[2018-09-29] MEDS: LISINOPRIL 10 MG TABLET PO SCH (09:00)
[2018-09-29] MEDS ORDERED: LISINOPRIL 5 MG TABLET ONE (09:30)
[2018-09-29] MEDS: OXCARBAZEPINE 150 MG TABLET PO SCH ×2 (09:43→20:32)
[2018-09-29] MEDS: RISPERIDONE 1 MG TAB.RAPDIS PO SCH (09:43)
[2018-09-29] MEDS: AMLODIPINE 2.5 MG TABLET PO SCH (09:43)
[2018-09-29] MEDS: DOCUSATE 100 MG CAPSULE PO SCH ×2 (09:43→20:33)
[2018-09-29] MEDS: LORATADINE 10 MG TABLET PO SCH (09:44)
[2018-09-29] MEDS: ACETAMINOPHEN 325 MG TABLET PO PRN ×2 (09:48→18:23)
[2018-09-29] MEDS: SODIUM CHLORIDE 0.9% 1,000 ML IV SCH (10:30)
[2018-09-29 12:12] VITALS: BP 152/64
[2018-09-29 18:50] VITALS: BP 141/66
[2018-09-29] MEDS: SIMVASTATIN 10 MG TABLET PO SCH (20:32)
[2018-09-29] MEDS: TEMAZEPAM 15 MG CAPSULE PO SCH (20:32)
[2018-09-29] MEDS: RISPERIDONE 1 MG TABLET PO SCH (20:33)
[2018-09-30 02:04] VITALS: BP 145/83
[2018-09-30] MEDS: SODIUM CHLORIDE 0.9% 1,000 ML IV SCH (03:02)
[2018-09-30] MEDS: LEVOTHYROXINE 112 MCG TABLET PO SCH (05:49)
[2018-09-30] MEDS: CARVEDILOL 6.25 MG TABLET PO SCH ×2 (05:50→19:37)
[2018-09-30] MEDS: ENOXAPARIN 40 MG/0.4 ML SQ SCH (05:50)
[2018-09-30] MEDS: ACETAMINOPHEN 325 MG TABLET PO PRN (05:50)
[2018-09-30 08:42] VITALS: BP 159/62
[2018-09-30] MEDS: METHYL SALICYLATE/MENTHOL CRM 85GM TP SCH ×2 (09:00→21:00)
[2018-09-30] MEDS: AMLODIPINE 2.5 MG TABLET PO SCH ×2 (09:24→19:39)
[2018-09-30] MEDS: OXCARBAZEPINE 150 MG TABLET PO SCH ×2 (09:24→19:38)
[2018-09-30] MEDS: RISPERIDONE 1 MG TAB.RAPDIS PO SCH (09:25)
[2018-09-30] MEDS: LORATADINE 10 MG TABLET PO SCH (09:25)
[2018-09-30] MEDS: DOCUSATE 100 MG CAPSULE PO SCH ×2 (09:25→19:38)
[2018-09-30] MEDS: LISINOPRIL 10 MG TABLET PO SCH (09:25)
[2018-09-30 12:29] VITALS: BP 190/97
[2018-09-30 13:20] VITALS: BP 143/83
[2018-09-30] MEDS ORDERED: ZIPRASIDONE 20 MG INJ IM ONE ×2 (18:20→18:30)
[2018-09-30 18:44] VITALS: BP 198/93
[2018-09-30] MEDS: TEMAZEPAM 15 MG CAPSULE PO SCH (19:38)
[2018-09-30] MEDS: RISPERIDONE 1 MG TABLET PO SCH (19:38)
[2018-09-30] MEDS: SIMVASTATIN 10 MG TABLET PO SCH (19:38)
[2018-10-01 02:07] VITALS: BP 124/78
[2018-10-01] MEDS: DIAZEPAM 5 MG TABLET PO PRN ×2 (02:21→23:14)
[2018-10-01] MEDS: LEVOTHYROXINE 112 MCG TABLET PO SCH (05:50)
[2018-10-01] MEDS: CARVEDILOL 6.25 MG TABLET PO SCH ×2 (05:50→18:08)
[2018-10-01] MEDS: ENOXAPARIN 40 MG/0.4 ML SQ SCH (05:50)
[2018-10-01 06:47] VITALS: BP 142/93
[2018-10-01] MEDS: METHYL SALICYLATE/MENTHOL CRM 85GM TP SCH ×2 (09:00→21:00)
[2018-10-01] MEDS: RISPERIDONE 1 MG TAB.RAPDIS PO SCH (09:18)
[2018-10-01] MEDS: LISINOPRIL 10 MG TABLET PO SCH (09:18)
[2018-10-01] MEDS: AMLODIPINE 2.5 MG TABLET PO SCH ×2 (09:19→19:53)
[2018-10-01] MEDS: DOCUSATE 100 MG CAPSULE PO SCH ×2 (09:19→19:52)
[2018-10-01] MEDS: OXCARBAZEPINE 150 MG TABLET PO SCH ×2 (09:19→19:53)
[2018-10-01] MEDS: LORATADINE 10 MG TABLET PO SCH (09:19)
[2018-10-01 09:27] LABS: BASOPHILS # (AUTO) 0.03 x10^3/uL (0-0.1); BASOPHILS % (AUTO) 1 % (0-1); EOSINOPHILS # (AUTO) 0.06 x10^3/uL (0-0.4); EOSINOPHILS % (AUTO) 1 % (1-7); LYMPHOCYTES # (AUTO) 1.94 x10^3/uL (1-3.4); LYMPHOCYTES % (AUTO) 29 % (22-44); MD NO; MEAN CORPUSCULAR HEMOGLOBIN 31.3 pg (27.0-34.8); MEAN CORPUSCULAR HGB CONC 33.4 g/dL (32.4-35.8); MEAN CORPUSCULAR VOLUME 93.8 fL (80-100); MEAN PLATELET VOLUME 7.8 fL (7.4-10.4); MONOCYTES # (AUTO) 0.37 x10^3/uL (0.2-0.8); MONOCYTES % (AUTO) 6 % (2-9); NEUTROPHILS # (AUTO) 4.35 x10^3/uL (1.8-6.8); NEUTROPHILS % (AUTO) 64 % (42-75); PLATELET COUNT 244 x10^3/uL (130-400); RED CELL DISTRIBUTION WIDTH 13.5 % (9.6-15.2)
[2018-10-01 09:34] LABS: CHLORIDE 91 mmol/L (98-107)
[2018-10-01 09:38] LABS: CALCIUM 9.9 mg/dL (8.5-10.1); CREATININE 1.04 mg/dL (0.55-1.02)
[2018-10-01 10:29] LABS: ANION GAP 8 mmol/L (5-15)
[2018-10-01 10:53] LABS: HEMOGLOBIN A1C 6.1 % (4.2-6.3)
[2018-10-01] MEDS: ACETAMINOPHEN 325 MG TABLET PO PRN ×2 (11:21→23:12)
[2018-10-01 13:39] VITALS: BP 113/79
[2018-10-01] MEDS: TEMAZEPAM 15 MG CAPSULE PO SCH (19:52)
[2018-10-01] MEDS: SIMVASTATIN 10 MG TABLET PO SCH (19:52)
[2018-10-01] MEDS: RISPERIDONE 1 MG TABLET PO SCH (19:53)
[2018-10-01 20:00] VITALS: BP 136/81
[2018-10-02 02:00] VITALS: BP 125/84
[2018-10-02] MEDS: CARVEDILOL 6.25 MG TABLET PO SCH ×2 (06:16→17:10)
[2018-10-02] MEDS: ACETAMINOPHEN 325 MG TABLET PO PRN ×2 (06:16→14:37)
[2018-10-02] MEDS: LEVOTHYROXINE 112 MCG TABLET PO SCH (06:16)
[2018-10-02] MEDS: ENOXAPARIN 40 MG/0.4 ML SQ SCH (06:17)
[2018-10-02 07:09] VITALS: BP 135/84
[2018-10-02] MEDS: OXCARBAZEPINE 150 MG TABLET PO SCH ×2 (08:30→20:52)
[2018-10-02] MEDS: AMLODIPINE 2.5 MG TABLET PO SCH ×2 (08:30→20:52)
[2018-10-02] MEDS: LORATADINE 10 MG TABLET PO SCH (08:30)
[2018-10-02] MEDS: METHYL SALICYLATE/MENTHOL CRM 85GM TP SCH ×2 (08:31→21:03)
[2018-10-02] MEDS: DOCUSATE 100 MG CAPSULE PO SCH ×2 (08:31→20:51)
[2018-10-02] MEDS: RISPERIDONE 1 MG TAB.RAPDIS PO SCH (08:31)
[2018-10-02] MEDS: LISINOPRIL 10 MG TABLET PO SCH (08:42)
[2018-10-02 13:50] VITALS: BP 124/93
[2018-10-02 19:10] VITALS: BP 181/79
[2018-10-02] MEDS: TEMAZEPAM 15 MG CAPSULE PO SCH (20:51)
[2018-10-02] MEDS: SIMVASTATIN 10 MG TABLET PO SCH (20:51)
[2018-10-02] MEDS: RISPERIDONE 1 MG TABLET PO SCH (20:51)
[2018-10-03] MEDS: DIAZEPAM 5 MG TABLET PO PRN ×2 (01:00→10:07)
[2018-10-03 01:02] VITALS: BP 108/70
[2018-10-03] MEDS: CARVEDILOL 6.25 MG TABLET PO SCH ×2 (05:29→18:12)
[2018-10-03] MEDS: LEVOTHYROXINE 112 MCG TABLET PO SCH (05:29)
[2018-10-03] MEDS: ENOXAPARIN 40 MG/0.4 ML SQ SCH (05:35)
[2018-10-03] MEDS: ACETAMINOPHEN 325 MG TABLET PO PRN (05:35)
[2018-10-03 06:38] VITALS: BP 120/70
[2018-10-03 07:55] LABS: ALBUMIN 3.8 g/dL (3.4-5.0); ANION GAP 5 mmol/L (5-15); CALCIUM 9.4 mg/dL (8.5-10.1); CHLORIDE 90 mmol/L (98-107); CREATININE 1.13 mg/dL (0.55-1.02)
[2018-10-03] MEDS: LORATADINE 10 MG TABLET PO SCH (10:06)
[2018-10-03] MEDS: AMLODIPINE 2.5 MG TABLET PO SCH ×2 (10:06→19:46)
[2018-10-03] MEDS: DOCUSATE 100 MG CAPSULE PO SCH ×2 (10:06→19:50)
[2018-10-03] MEDS: LISINOPRIL 10 MG TABLET PO SCH (10:07)
[2018-10-03] MEDS: METHYL SALICYLATE/MENTHOL CRM 85GM TP SCH ×2 (10:07→19:47)
[2018-10-03] MEDS: OXCARBAZEPINE 150 MG TABLET PO SCH ×2 (10:07→19:46)
[2018-10-03] MEDS: RISPERIDONE 1 MG TAB.RAPDIS PO SCH (10:07)
[2018-10-03 12:47] VITALS: BP 142/88
[2018-10-03 18:39] VITALS: BP 162/91
[2018-10-03] MEDS: SIMVASTATIN 10 MG TABLET PO SCH (19:46)
[2018-10-03] MEDS: RISPERIDONE 1 MG TABLET PO SCH (19:47)
[2018-10-03] MEDS: TEMAZEPAM 15 MG CAPSULE PO SCH (19:51)
[2018-10-04 00:04] VITALS: BP 145/85
[2018-10-04 05:04] VITALS: BP 122/78
[2018-10-04] MEDS: LEVOTHYROXINE 112 MCG TABLET PO SCH (05:06)
[2018-10-04] MEDS: ACETAMINOPHEN 325 MG TABLET PO PRN ×3 (05:06→18:14)
[2018-10-04] MEDS: CARVEDILOL 6.25 MG TABLET PO SCH ×2 (05:07→18:14)
[2018-10-04] MEDS: ENOXAPARIN 40 MG/0.4 ML SQ SCH (05:07)
[2018-10-04 07:23] VITALS: BP 112/67
[2018-10-04] MEDS: AMLODIPINE 2.5 MG TABLET PO SCH ×2 (10:21→21:03)
[2018-10-04] MEDS: LORATADINE 10 MG TABLET PO SCH (10:21)
[2018-10-04] MEDS: LISINOPRIL 10 MG TABLET PO SCH (10:22)
[2018-10-04] MEDS: DOCUSATE 100 MG CAPSULE PO SCH ×2 (10:22→21:00)
[2018-10-04] MEDS: OXCARBAZEPINE 150 MG TABLET PO SCH ×2 (10:22→21:03)
[2018-10-04] MEDS: RISPERIDONE 1 MG TAB.RAPDIS PO SCH (10:22)
[2018-10-04] MEDS: METHYL SALICYLATE/MENTHOL CRM 85GM TP SCH ×2 (11:46→21:00)
[2018-10-04 12:53] VITALS: BP 103/61
[2018-10-04 18:47] VITALS: BP 129/62
[2018-10-04] MEDS: TEMAZEPAM 15 MG CAPSULE PO SCH (21:00)
[2018-10-04] MEDS: SIMVASTATIN 10 MG TABLET PO SCH (21:03)
[2018-10-04] MEDS: RISPERIDONE 1 MG TABLET PO SCH (21:03)
[2018-10-05 00:18] VITALS: BP 102/68
[2018-10-05] MEDS: LEVOTHYROXINE 112 MCG TABLET PO SCH (05:54)
[2018-10-05] MEDS: CARVEDILOL 6.25 MG TABLET PO SCH (05:55)
[2018-10-05 07:31] VITALS: BP 142/83
[2018-10-05] MEDS: ENOXAPARIN 40 MG/0.4 ML SQ SCH (07:45)
[2018-10-05] MEDS: LISINOPRIL 10 MG TABLET PO SCH (08:00)
[2018-10-05] MEDS: LORATADINE 10 MG TABLET PO SCH (08:01)
[2018-10-05] MEDS: RISPERIDONE 1 MG TAB.RAPDIS PO SCH (08:01)
[2018-10-05] MEDS: OXCARBAZEPINE 150 MG TABLET PO SCH (08:02)
[2018-10-05] MEDS: DOCUSATE 100 MG CAPSULE PO SCH (08:02)
[2018-10-05] MEDS: METHYL SALICYLATE/MENTHOL CRM 85GM TP SCH (08:02)
[2018-10-05] MEDS: AMLODIPINE 2.5 MG TABLET PO SCH (08:25)
== END 2018-10-05 14:10 | disposition home or self-care (01) ==
LOC: ED 20:20 → EDIP 20:22 → 3NE 09-16 00:27
PROVIDERS: ADMIT Family Medicine; ATTEND Family Medicine
DX: F20.0 Paranoid schizophrenia (principal); E11.9 Type 2 diabetes mellitus without complications; E03.9 Hypothyroidism, unspecified; E22.2 Syndrome of inappropriate secretion of antidiuretic hormone; E66.9 Obesity, unspecified; E78.5 Hyperlipidemia, unspecified; E87.70 Fluid overload, unspecified; F17.210 Nicotine dependence, cigarettes, uncomplicated; F41.1 Generalized anxiety disorder; J44.9 Chronic obstructive pulmonary disease, unspecified; F01.50 Vascular dementia, unspecified severity, without behavioral disturbance, psychotic disturbance, mood disturbance, and anxiety; K59.00 Constipation, unspecified; M19.90 Unspecified osteoarthritis, unspecified site; I10 Essential (primary) hypertension
CPT/HCPCS: 36415; 71045; 80048; 80076; 80307; 80329; 81001; 82040; 83036; 83735; 83880; 83930; 83935; 84300; 84436; 84443; 84484; 85025; 86480; 87086; 93005; 96372; 99284; G0378; J1650; J3486; J7030; G0480